=== PATIENT | female | born 1940 | race Caucasian/White ===

== ENCOUNTER 2016-12-05 10:09 | Observation (INO) | payer MEDICARE, BC ==
--- NOTE | 2016-12-05 10:56 | ED ---
General Adult HPI - General Chief complaint: Arrhythmia/Palpitations Stated complaint: HTN Time Seen by Provider: 12/05/16 10:54 Source: patient, RN notes reviewed, old records reviewed Mode of arrival: wheelchair Limitations: no limitations - History of Present Illness Initial comments: This is a 76-year-old female ER for evaluation of chest pain. Chest pain and palpitations, fast heart rate, symptoms occurred after waking. Patient had similar symptoms about a week ago. Patient is known to have some sort of tachycardia which she is unsure of. Patient does have history of CVA and cardiac risk factors. Patient states symptoms are worse with walking, she does get short of breath with activity better with rest. Patient states she is currently having similar symptoms and does feel anxious about this. She feels that she did not pass out and is scared about that - Related Data Home Medications Medication Instructions Recorded Confirmed Benazepril HCl [Lotensin] 40 mg PO DAILY 12/05/16 12/05/16 Cholecalciferol [Vitamin D3] 2,000 unit PO DAILY 12/05/16 12/05/16 Clopidogrel Bisulfate [Plavix] 75 mg PO DAILY 12/05/16 12/05/16 Metoprolol Tartrate [Lopressor] 50 mg PO DAILY 12/05/16 12/05/16 Nystatin 100,000 Unit/ml Susp 5 ml PO TID 12/05/16 12/05/16 [Mycostatin Oral Susp] Omeprazole [PriLOSEC] 40 mg PO DAILY 12/05/16 12/05/16 Pravastatin Sodium [Pravachol] 40 mg PO HS 12/05/16 12/05/16 amLODIPine BESYLATE [Norvasc] 5 mg PO DAILY 12/05/16 12/05/16 Review of Systems ROS Statement: Those systems with pertinent positive or pertinent negative responses have been documented in the HPI. ROS Other: All systems not noted in ROS Statement are negative. Past Medical History Past Medical History: Hypertension History of Any Multi-Drug Resistant Organisms: None Reported Additional Past Surgical History / Comment(s): cataracts Past Psychological History: No Psychological Hx Reported Smoking Status: Never smoker Past Alcohol Use History: None Reported Past Drug Use History: None Reported General Exam Limitations: no limitations General appearance: alert, in no apparent distress, anxious Head exam: Present: atraumatic, normocephalic, normal inspection Eye exam: Present: normal appearance, PERRL, EOMI. Absent: scleral icterus, conjunctival injection, periorbital swelling ENT exam: Present: normal exam, mucous membranes moist Neck exam: Present: normal inspection. Absent: tenderness, meningismus, lymphadenopathy Respiratory exam: Present: normal lung sounds bilaterally. Absent: respiratory distress, wheezes, rales, rhonchi, stridor Cardiovascular Exam: Present: regular rate, normal rhythm, normal heart sounds. Absent: systolic murmur, diastolic murmur, rubs, gallop, clicks GI/Abdominal exam: Present: soft, normal bowel sounds. Absent: distended, tenderness, guarding, rebound, rigid Extremities exam: Present: normal inspection, full ROM, normal capillary refill. Absent: tenderness, pedal edema, joint swelling, calf tenderness Back exam: Present: normal inspection Neurological exam: Present: alert, oriented X3, CN II-XII intact Psychiatric exam: Present: normal affect, normal mood Skin exam: Present: warm, dry, intact, normal color. Absent: rash Course Vital Signs 12/05/16 10:46 Temperature 98.2 F Pulse Rate 64 Respiratory 18 Rate Blood Pressure 143/72 O2 Sat by Pulse 99 Oximetry - Reevaluation(s) Reevaluation #1: 12/05/16 12:20 Patient still very anxious, palpitations have resolved, she did take metoprolol after symptoms started EKG Findings - EKG Comments: EKG Findings:: EKG shows sinus bradycardia rate 59,OR 236, QRS 80, QTC 421 Medical Decision Making - Medical Decision Making 76-year-old year for evaluation of elevated heart rate palpitations anxiety and chest pain. Exertional dyspnea. Patient has no ST elevation on EKG troponin is negative will be admitted for cardiac observation, social troponin testing - Lab Data Result diagrams: 12/05/16 11:14 12/05/16 11:14 Lab Results 12/05/16 12/05/16 12/05/16 Range/Units 11:14 11:14 11:14 WBC 6.5 (3.8-10.6) k/uL RBC 5.05 (3.80-5.40) m/uL Hgb 15.1 (11.4-16.0) gm/dL Hct 44.6 (34.0-46.0) % MCV 88.3 (80.0-100.0) fL MCH 30.0 (25.0-35.0) pg MCHC 33.9 (31.0-37.0) g/dL RDW 13.3 (11.5-15.5) % Plt Count 248 (150-450) k/uL Neutrophils % 68 % Lymphocytes % 23 % Monocytes % 5 % Eosinophils % 2 % Basophils % 2 % Neutrophils # 4.4 (1.3-7.7) k/uL Lymphocytes # 1.5 (1.0-4.8) k/uL Monocytes # 0.3 (0-1.0) k/uL Eosinophils # 0.1 (0-0.7) k/uL Basophils # 0.1 (0-0.2) k/uL PT (9.0-12.0) sec INR (<1.1) APTT (22.0-30.0) sec Sodium 141 (137-145) mmol/L Potassium 4.4 (3.5-5.1) mmol/L Chloride 106 (98-107) mmol/L Carbon Dioxide 22 (22-30) mmol/L Anion Gap 13 mmol/L BUN 12 (7-17) mg/dL Creatinine 0.75 (0.52-1.04) mg/dL Est GFR (MDRD) Af Amer >60 (>60 ml/min/1.73 sqM) Est GFR (MDRD) Non-Af >60 (>60 ml/min/1.73 sqM) Glucose 112 H (74-99) mg/dL Calcium 10.2 (8.4-10.2) mg/dL Phosphorus 1.7 L (2.5-4.5) mg/dL Magnesium 2.2 (1.6-2.3) mg/dL Total Bilirubin 0.9 (0.2-1.3) mg/dL AST 24 (14-36) U/L ALT 28 (9-52) U/L Alkaline Phosphatase 90 (38-126) U/L Total Creatine Kinase 58 (30-135) U/L CK-MB (CK-2) 0.5 (0.0-2.4) ng/mL CK-MB (CK-2) Rel Index 0.9 Troponin I <0.012 (0.000-0.034) ng/mL Total Protein 7.7 (6.3-8.2) g/dL Albumin 4.3 (3.5-5.0) g/dL Urine Color Urine Appearance (Clear) Urine pH (5.0-8.0) Ur Specific Thornton (1.001-1.035) Urine Protein (Negative) Urine Glucose (UA) (Negative) Urine Ketones (Negative) Urine Blood (Negative) Urine Nitrate (Negative) Urine Bilirubin (Negative) Urine Urobilinogen (<2.0) mg/dL Ur Leukocyte Esterase (Negative) 12/05/16 12/05/16 Range/Units 11:14 12:02 WBC (3.8-10.6) k/uL RBC (3.80-5.40) m/uL Hgb (11.4-16.0) gm/dL Hct (34.0-46.0) % MCV (80.0-100.0) fL MCH (25.0-35.0) pg MCHC (31.0-37.0) g/dL RDW (11.5-15.5) % Plt Count (150-450) k/uL Neutrophils % % Lymphocytes % % Monocytes % % Eosinophils % % Basophils % % Neutrophils # (1.3-7.7) k/uL Lymphocytes # (1.0-4.8) k/uL Monocytes # (0-1.0) k/uL Eosinophils # (0-0.7) k/uL Basophils # (0-0.2) k/uL PT 11.8 (9.0-12.0) sec INR 1.2 (<1.1) APTT 23.9 (22.0-30.0) sec Sodium (137-145) mmol/L Potassium (3.5-5.1) mmol/L Chloride (98-107) mmol/L Carbon Dioxide (22-30) mmol/L Anion Gap mmol/L BUN (7-17) mg/dL Creatinine (0.52-1.04) mg/dL Est GFR (MDRD) Af Amer (>60 ml/min/1.73 sqM) Est GFR (MDRD) Non-Af (>60 ml/min/1.73 sqM) Glucose (74-99) mg/dL Calcium (8.4-10.2) mg/dL Phosphorus (2.5-4.5) mg/dL Magnesium (1.6-2.3) mg/dL Total Bilirubin (0.2-1.3) mg/dL AST (14-36) U/L ALT (9-52) U/L Alkaline Phosphatase (38-126) U/L Total Creatine Kinase (30-135) U/L CK-MB (CK-2) (0.0-2.4) ng/mL CK-MB (CK-2) Rel Index Troponin I (0.000-0.034) ng/mL Total Protein (6.3-8.2) g/dL Albumin (3.5-5.0) g/dL Urine Color Colorless Urine Appearance Clear (Clear) Urine pH 8.0 (5.0-8.0) Ur Specific Thornton 1.003 (1.001-1.035) Urine Protein Negative (Negative) Urine Glucose (UA) Negative (Negative) Urine Ketones 1+ H (Negative) Urine Blood Negative (Negative) Urine Nitrate Negative (Negative) Urine Bilirubin Negative (Negative) Urine Urobilinogen <2.0 (<2.0) mg/dL Ur Leukocyte Esterase Negative (Negative) - Radiology Data Radiology results: report reviewed (Chest x-ray two-view is negative for acute disease), image reviewed Critical Care Time Critical Care Time: Yes Total Critical Care Time: 31 Disposition Clinical Impression: Tachycardia, Chest pain, Heart palpitations, Anxiety Disposition: ADMITTED IP TO THIS [facility] Condition: Fair Referrals: April Peres MD [Primary Care Provider] - 1-2 days
[2016-12-05 11:29] LABS: Basophils # (A) 0.1 k/uL (0-0.2); Basophils % (A) 2 %; CH 30.7; CHCM 34.9; Eosinophils # (A) 0.1 k/uL (0-0.7); Eosinophils % (A) 2 %; HCT 44.6 % (34.0-46.0); HDW 2.46; HGB 15.1 gm/dL (11.4-16.0); Luc # (Auto) 0.08; Luc % (Auto) 1; Lymphocytes # (A) 1.5 k/uL (1.0-4.8); Lymphocytes % (A) 23 %; MCHC 33.9 g/dL (31.0-37.0); MCV 88.3 fL (80.0-100.0); Mean Platelet Volume 7.8; Monocytes # (A) 0.3 k/uL (0-1.0); Monocytes % (A) 5 %; Neutrophils # (A) 4.4 k/uL (1.3-7.7); Neutrophils % (A) 68 %; RBC 5.05 m/uL (3.80-5.40); RDW 13.3 % (11.5-15.5); WBC 6.5 k/uL (3.8-10.6); WBC (Perox) 6.31
--- NOTE | 2016-12-05 11:30 | XR ---
EXAMINATION TYPE: XR chest 2V DATE OF EXAM: 12/05/2016 11:24 AM COMPARISON: 10/07/2013 INDICATION: Weakness chest discomfort TECHNIQUE: Frontal and lateral views of the chest are obtained. FINDINGS: The heart size is normal. The pulmonary vasculature is normal. The lungs are clear. IMPRESSION: 1. No acute pulmonary process.
[2016-12-05 11:37] LABS: ALT 28 U/L (9-52); AST 24 U/L (14-36); Alkaline Phosphatase 90 U/L (38-126); Anion Gap 13 mmol/L; Blood Urea Nitrogen 12 mg/dL (7-17); Calcium 10.2 mg/dL (8.4-10.2); Carbon Dioxide 22 mmol/L (22-30); Chloride 106 mmol/L (98-107); Glucose 112 mg/dL (74-99); Magnesium 2.2 mg/dL (1.6-2.3); Non-African American GFR(MDRD) >60 (>60 ml/min/1.73 sqM); Phosphorous 1.7 mg/dL (2.5-4.5); Potassium 4.4 mmol/L (3.5-5.1); Sodium 141 mmol/L (137-145); Total Bilirubin 0.9 mg/dL (0.2-1.3); Total Protein 7.7 g/dL (6.3-8.2)
[2016-12-05 11:49] LABS: INR 1.2 (<1.1); Partial Thromboplastin Time 23.9 sec (22.0-30.0); Prothrombin Time 11.8 sec (9.0-12.0)
[2016-12-05 11:51] LABS: Creatine Kinase 58 U/L (30-135)
[2016-12-05 12:03] LABS: Creatine Kinase MB 0.5 ng/mL (0.0-2.4); Troponin I <0.012 ng/mL (0.000-0.034)
[2016-12-05 12:17] LABS: Appearance,Urine Clear (Clear); Bilirubin,Urine Negative (Negative); Glucose,Urine (UA) Negative (Negative); Ketones,Urine 1+ (Negative); Leukocyte Esterase,Urine Negative (Negative); Nitrite,Urine Negative (Negative); Protein,Urine Negative (Negative); Specific Gravity,Urine 1.003 (1.001-1.035); UA Billing (MACRO vs. MICRO) CHEM; Urobilinogen,Urine <2.0 mg/dL (<2.0)
[2016-12-05] MEDS ORDERED: HEPARIN SODIUM,PORCINE 5,000 UNIT/ML 1 ML VIAL IV PRN (12:17)
[2016-12-05] MEDS ORDERED: NITROGLYCERIN SL TABS 0.4 MG TAB SUBLINGUAL PRN (12:17)
[2016-12-05] MEDS ORDERED: ASPIRIN 81 MG CHEW PO STA (12:17)
[2016-12-05] MEDS ORDERED: HEPARIN SODIUM,PORCINE 5,000 UNIT/ML 1 ML VIAL IV ONE (12:17)
[2016-12-05] MEDS ORDERED: DIAZEPAM 5 MG/ML 2 ML SYRINGE IVP PRN (12:17)
[2016-12-05] MEDS ORDERED: DIAZEPAM 5 MG/ML 2 ML SYRINGE IVP STA (12:17)
[2016-12-05] MEDS ORDERED: HEPARIN SODIUM,PORCINE/D5W PMX 25,000 UNIT in DEXTROSE/WATER 1 500ML.BAG IV SCH (12:30)
[2016-12-05] MEDS: SODIUM CHLORIDE 0.9% 1,000 ML IV SCH (15:03)
[2016-12-05 17:58] LABS: Creatine Kinase 54 U/L (30-135)
[2016-12-05 18:10] LABS: Creatine Kinase MB 0.5 ng/mL (0.0-2.4); Troponin I <0.012 ng/mL (0.000-0.034)
[2016-12-05 20:30] LABS: Creatine Kinase 55 U/L (30-135)
[2016-12-05 20:43] LABS: Creatine Kinase MB 0.5 ng/mL (0.0-2.4); Troponin I <0.012 ng/mL (0.000-0.034)
[2016-12-06] MEDS: PRAVASTATIN SODIUM 40 MG TAB PO SCH ×2 (00:39→21:20)
[2016-12-06] MEDS: SODIUM CHLORIDE 0.9% 1,000 ML IV SCH (00:45)
[2016-12-06 07:37] LABS: Mean Platelet Volume 7.7
[2016-12-06 08:06] LABS: Cholesterol 142 mg/dL (<200); HDL Cholesterol 65 mg/dL (40-60); Triglycerides 80 mg/dL (<150)
--- NOTE | 2016-12-06 09:51 | ECHOF ---
Referral Reason:palpitations MEASUREMENTS -------- HEIGHT: 157.5 cm WEIGHT: 78.0 kg BP: RVIDd: 2.8 cm (< 3.3) IVSd: 1.2 cm (0.6 - 1.1) LVIDd: 3.4 cm (3.9 - 5.3) LVPWd: 1.5 cm (0.6 - 1.1) IVSs: 1.3 cm LVIDs: 2.9 cm LVPWs: 1.3 cm LAESV Index (A-L): 35.89 ml/m Ao Diam: 3.0 cm (2.0 - 3.7) AV Cusp: 1.8 cm (1.5 - 2.6) LA Diam: 4.0 cm (2.7 - 3.8) MV EXCURSION: 13.189 mm (> 18.000) MV EF SLOPE: 44 mm/s (70 - 150) EPSS: 0.2 cm MV E Ej: 0.71 m/s MV DecT: 139 ms MV A Ej: 0.22 m/s MV E/A Ratio: 3.29 RAP: 5.00 mmHg RVSP: 11.44 mmHg FINDINGS -------- Undetermined rhythm. This was a technically adequate study. There is mild concentric left ventricular hypertrophy. Overall left ventricular systolic function is low-normal with, an EF between 50 - 55 %. The right ventricle is normal in size. LA is midly dilated 29-33ml/m2. There is mild aortic valve sclerosis. There is no evidence of aortic regurgitation. Moderate mitral regurgitation is present. Cannot exclude mitral valve prolapse. Right ventricular systolic pressure is normal at < 35 mmHg. There is no evidence of pulmonary hypertension. The right ventricular systolic pressure, as measured by Doppler, is 11.44mmHg. There is no pulmonic regurgitation present. The aortic root size is normal. There is no pericardial effusion. CONCLUSIONS -------- 1. There is mild concentric left ventricular hypertrophy. 2. Overall left ventricular systolic function is low-normal with, an EF between 50 - 55 %. 3. LA is midly dilated 29-33ml/m2. 4. There is mild aortic valve sclerosis. 5. Moderate mitral regurgitation is present. 6. Cannot exclude mitral valve prolapse. 7. Right ventricular systolic pressure is normal at < 35 mmHg. 8. There is no evidence of pulmonary hypertension. 9. The right ventricular systolic pressure, as measured by Doppler, is 11.44mmHg. LARD RENDERER: Janet Pritchard RDCS
[2016-12-06] MEDS: CLOPIDOGREL 75 MG TAB PO SCH (12:11)
[2016-12-06] MEDS: METOPROLOL TARTRATE 50 MG TAB PO SCH (12:12)
[2016-12-06] MEDS: CHOLECALCIFEROL 1,000 UNIT TAB PO SCH (12:12)
[2016-12-06] MEDS: PANTOPRAZOLE 40 MG TABLET PO SCH (12:12)
[2016-12-06] MEDS: LISINOPRIL 20 MG TAB PO SCH (12:12)
[2016-12-06] MEDS: amLODIPine 5 MG TAB PO SCH (12:12)
--- NOTE | 2016-12-06 16:01 | HP ---
DATE OF ADMISSION: CHIEF COMPLAINT: Heart beating fast and feeling of passing out. HISTORY OF ILLNESS: Ms. Brown is a 76-year-old female with known history of hypertension, history of CVA, history of palpitations, who follows with the cardiology clinic. She came to the hospital with complaints of heart beating fast and a feeling of passing out since yesterday a.m. Apparently patient had similar symptoms of heart beating fast about a week back. Patient does follow with Dr. Charles Hall for cardiac workup. Patient had a stress test done about 2 years ago and had cardiac catheterization several years ago. Otherwise, patient denied any fever or chills. No associated nausea or vomiting. Patient did have dizziness and lightheadedness when she came to the hospital. No complaints of chest pain or shortness of breath. Patient has been having dizziness when she gets up and walks to the bathroom. Patient does take Plavix at home. No recent illnesses. No sick contacts at home. Patient apparently has been having diarrhea on and off recently. Currently no complaints of diarrhea. No abdominal pain. REVIEW OF SYSTEMS: CONSTITUTIONAL: No fever. No chills. No weakness or malaise. RESPIRATORY: No cough or sputum production. CARDIOVASCULAR: No chest pain. No shortness of breath. No leg swelling. Patient did have palpitations. ABDOMEN: No nausea, vomiting, abdominal pain. No diarrhea. GENITOURINARY: No dysuria. ENDOCRINE: Negative. PSYCHIATRY: Negative. SKIN: Negative. MUSCULOSKELETAL: Negative. All other 14-point review of systems negative except as above. Past medical history includes: 1. Hypertension. 2. History of CVA. 3. History of palpitations. PAST SURGICAL HISTORY: 1. Cholecystectomy. 2. Total abdominal hysterectomy. 3. Tonsillectomy. 4. Cataract surgery. SOCIAL HISTORY: Patient never a smoker. Denied any alcohol. Denied any drugs or IVDU. FAMILY HISTORY: Denied any history of hypertension, diabetes mellitus or premature heart disease in the family. Home medications include: 1. Benazepril. 2. Metoprolol. 3. Clopidogrel. 4. Vitamin D3. 5. Nystatin oral suspension. 6. Omeprazole. 7. Pravastatin. 8. Amlodipine. PHYSICAL EXAMINATION: [age]-old female lying in bed comfortably. Awake, alert, oriented x3. Appears in no apparent distress. VITALS: Blood pressure is 172/70. Pulse is 56. Respiratory rate 16. Temperature afebrile. Pulse ox 98% on room air. HEENT: Atraumatic, normocephalic. Neck is supple. No JVD. CVS EXAM: S1, S2 heard. No murmurs. No gallop. LUNGS: Bilateral air entry present. No wheezing. No crackles. Non-labored breathing. ABDOMEN: Soft, nontender. Bowel sounds present. YOGA TEACHER: Awake, alert and oriented x3. No focal neurological deficit. Cranial nerves grossly intact. EXTREMITIES: No edema. Pulses palpable bilaterally. No clubbing or cyanosis. PSYCHIATRIC: Cooperative. LABORATORY DATA: WBC 6.5, hemoglobin 15.1, platelets 248. INR 1.2. Sodium 141, potassium 4.4, chloride 106. Bicarb is 22. BUN 12, creatinine 0.75. Blood sugar is 112. Phosphorus is 1.7. Troponin x3 negative. Liver enzymes are negative. Albumin 4.3. UA negative. EKG shows sinus bradycardia with first-degree AV block. Chest x-ray negative. IMPRESSION: 1. Near-syncope and feeling of passing out, likely cardiogenic. 2. History of palpitations, on followup with Cardiology as an outpatient. 3. Hypertension. 4. History of cerebrovascular accident. No residual weakness. Currently on Plavix. 5. Hypophosphatemia. 6. Anxiety. 7. Tachycardia. 8. Sinus bradycardia with first-degree AV block on EKG. DISCUSSION AND PLAN: Re[age]mvv[age]dem[age]-old female admitted to the hospital with feeling of passing out and heart racing fast. Will check TSH and will check orthostatic vitals. Patient currently on IV fluid challenges per hour. Continue with the home medications. ( ) Plavix and ( ) started on heparin IV. Serial troponins are negative. Cardiology has been consulted for further evaluation. Will continue to follow. Further recommendations based on the clinical course.
[2016-12-06] MEDS: ASPIRIN 325 MG TAB PO SCH (17:25)
--- NOTE | 2016-12-06 21:07 | CONS ---
DATE OF CONSULTATION: Mrs. Brown is a 76-year-old female who presented complaining of a presyncopal spell followed by pounding in her chest. She had a similar spell about a week back. She has had several such spells in the past and she has had a detailed cardiac workup, including an event monitor, but no clear-cut could be arrived at. All the tests were within normal limits. At this time she denies any chest discomfort. No undue shortness of breath, dizziness or lightheadedness, and she has not had any such episode while she is on telemetry. PAST MEDICAL HISTORY: 1. Hypertension. 2. History of TIA in the past. 3. History of PFO with interatrial shunting. That was diagnosed around 2005, and at that time she had a TIA. She follows with Dr. Hill for this. 4. Normal coronary arteries. 5. Normal LV function. REVIEW OF SYSTEMS: No fever, chills, rigors. No cough or expectoration. No nausea, vomiting or diarrhea. No hematuria or dysuria. No strokes or seizures. No skin lesions. No musculoskeletal complaints. PAST SURGICAL HISTORY: 1. Cholecystectomy. 2. Total abdominal hysterectomy. 3. Tonsillectomy. 4. Cataract surgery. SOCIAL HISTORY: No history of smoking or alcohol use. FAMILY HISTORY: Noncontributory. Medications at home include: 1. Benazepril. 2. Metoprolol. 3. Clopidogrel. 4. Vitamin D3. 5. Pravachol. 6. Amlodipine. On examination, she is lying comfortably in bed. Her vitals are stable. Her blood pressure 120/71 mmHg and 154/77 mmHg. Normal respirations. Afebrile, 98.3 degrees Fahrenheit. Heart sounds S1, S2 are normal. Normal breath sounds. No rhonchi. No crackles. Abdomen is soft, nontender. Extremities are warm. No edema. Twelve-lead ECG shows sinus rhythm, 59 beats per minute, mildly prolonged [place] interval at 236 ms, normal ST segments. Telemetry: No arrhythmia is noted other than heart rates in the 50s. Two-D echo: Mild LVH with preserved LV systolic function, ejection fraction of 50% to 55%; mildly dilated left atrium; moderate mitral regurgitation; possible mitral valve prolapse. No pulmonary hypertension. RVSP is normal. IMPRESSION: 1. Recurrent episodes of presyncope followed by pounding in the chest without a clear-cut diagnosis. 2. History of transient ischemic attack almost 10 years back. 3. History of patent foramen ovale with interatrial shunting. 4. History of moderate mitral regurgitation. 5. Hypertension with mild left ventricular hypertrophy; ejection fraction in the low normal range of 50% to 55%. SUGGEST: Tilt table test tomorrow. I would recommend at least implantation of a Reveal monitor. I showed the Reveal loop monitor to the patient. She is agreeable with that plan. I think the Reveal monitor is important on several counts: 1) She has had a history of TIA, and the presumption has been that it was associated with the PFO. 2) She has a history of presyncope. 3) The presyncope is followed by a pounding sensation in the chest. 4) No diagnosis has been arrived at, despite fairly detailed testing, including event monitoring. Angiogram in the past has been normal. We will proceed with tilt table testing and Reveal monitor implantation tomorrow.
[2016-12-07] MEDS: SODIUM CHLORIDE 0.9% 1,000 ML IV SCH ×2 (09:02→12:59)
[2016-12-07] MEDS ORDERED: ceFAZolin 2 GM in SODIUM CHLORIDE 0.9% 100 ML IVPB ONE (10:05)
[2016-12-07] MEDS ORDERED: SODIUM CHLORIDE 0.9% 1,000 ML IV SCH (10:15)
[2016-12-07] MEDS ORDERED: LIDOCAINE 2% INJ 20 MG/ML SQ ONE ×2 (11:00)
--- NOTE | 2016-12-07 11:19 | P.PCN ---
Preoperative Diagnosis: Twelve-lead ECG shows sinus rhythm mildly prolonged MN interval narrow QRS Loop monitor implant Primary physicians: April Peres Filling Hand: Dr. Barclay Indication: Presyncope and palpitations , TIA Patient was brought to the EP lab in a fasting state. Written informed consent was obtained prior to the procedure. The left pectoral area was prepped and draped per protocol. Intravenous antibiotic was administered preoperatively. A subcutaneous Loop monitor was implanted successfully and the wound was closed per protocol. The device was programmed to detect significant rupert- arrhythmic and tachy-arrhythmic events, per protocol. Device and programming details: Programming for A. fib and bradycardia
[2016-12-07 11:47] VITALS: BP 165/71; PULSE 73; RESP 16; TEMP 97.7
--- NOTE | 2016-12-07 11:51 | CE ---
DATE OF SERVICE: TILT TABLE TEST: Ms. Brown underwent a tilt table test. A 12 lead ECG shows sinus rhythm with normal QRS and a mildly prolonged CA interval. Baseline blood pressure 123/61 millimeters Hg. Baseline heart rate 75 beats a minute. She was tilted upright at an angle of 70 degrees per protocol. There was a slow but a gradual reduction in her blood pressure. The lowest blood pressure recorded was 75 mmHg. There was a mild increase in heart rate 103 beats a minute. She remained completely asymptomatic and she was laid supine at the end of the procedure. Her blood pressure increased to 91/61 millimeters of Hg. IMPRESSION: 1. 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 2. No evidence for neurocardiogenic syncope.
--- NOTE | 2016-12-07 11:53 | LTR ---
December 07, 2016 RE: Kevin Jasmin Rosa Maria Dear Dr. Peres: I had the pleasure of seeing Jasmin Brown in electrophysiology consultation. Jasmin has a history of: 1. TIAs in the past with PFO and it was presumed that these episodes are due to her PFO. 2. Recurrent episodes of presyncope followed by a pounding and palpitations. Her work-up as an outpatient has been completely normal. She follows with Dr. hCarles Hall. On telemetry, no arrhythmias were noted. She underwent a tilt table test, which showed mild dysautonomic response which she was completely asymptomatic during the tilt table test. Subsequently, a Loop monitor was implanted to look for any episodes of sudden bradycardia and atrial fibrillation, which could explain her symptoms, including her TIAs. If you have any questions, please do not hesitate to give me a call. Sincerely, JOSE GROSS MD
[2016-12-07] MEDS: PANTOPRAZOLE 40 MG TABLET PO SCH (12:59)
[2016-12-07] MEDS: CHOLECALCIFEROL 1,000 UNIT TAB PO SCH (13:00)
[2016-12-07] MEDS: LISINOPRIL 20 MG TAB PO SCH (13:00)
[2016-12-07] MEDS: amLODIPine 5 MG TAB PO SCH (13:00)
[2016-12-07] MEDS: ASPIRIN 325 MG TAB PO SCH (13:00)
[2016-12-07] MEDS: METOPROLOL TARTRATE 50 MG TAB PO SCH (13:00)
[2016-12-07] MEDS: CLOPIDOGREL 75 MG TAB PO SCH (13:00)
--- NOTE | 2016-12-07 19:57 | P.DS ---
Providers Date of admission: 12/05/16 12:17 Expected date of discharge: 12/07/16 Attending physician: Flavia Campbell Primary care physician: April Peres MD Hospital Course: This is 76-year-old female came to the hospital with a presyncopal episode patient did notice some pounding in her chest patient had has a similar episodes in the past patient apparently has had a detailed workup including event monitor and ischemic workup that was negative in the past. Patient was evaluated by Dr. ivy, recommended the patient undergo a placement of implantable monitor. Patient successfully underwent a loop recorder placement. At the time of my examination patient denies having any chest pain, palpitations, dizziness, nausea, vomiting or diarrhea. Physical exam Gen. appearance oriented 3 in no distress Neck is supple no JVD Lungs good air entry clear to auscultation no rhonchi or wheezing Heart S1-S2 heard regular rate and rhythm no murmurs appreciated Abdomen is soft nontender no organomegaly bowel sounds are intact Neurologically cranial nerves II-12 grossly intact no focal motor or sensory deficits noted Skin no abnormalities appreciated Discharge diagnoses #1. Presyncope rule out cardiac arrhythmias as underlying etiology other workup has been negative #2 history of hypertension per graph #3 history of TIA #4 history of PFO #5 vitamin D insufficiency Plan patient will be discharged home is to follow-up with electrophysiology in regards to evaluation of abnormal rhythms as recommended. Patient's blood pressure was stable orthostatics were negative Patient Condition at Discharge: Fair Plan - Discharge Summary Discharge Medication List Benazepril HCl [Lotensin] 40 mg PO DAILY 12/05/16 [History] Cholecalciferol [Vitamin D3] 1,000 unit PO DAILY 12/05/16 [History] Clopidogrel Bisulfate [Plavix] 75 mg PO DAILY 12/05/16 [History] Metoprolol Tartrate [Lopressor] 50 mg PO DAILY 12/05/16 [History] Omeprazole [PriLOSEC] 40 mg PO DAILY 12/05/16 [History] Pravastatin Sodium [Pravachol] 40 mg PO HS 12/05/16 [History] amLODIPine BESYLATE [Norvasc] 5 mg PO DAILY 12/05/16 [History] Follow up Appointment(s)/Referral(s): April Peres MD [Primary Care Provider] - 1-2 days Connor Hall MD [STAFF PHYSICIAN] - 1 Week (Monday, December 14, 3:15) Patient Instructions/Handouts: Chest Pain (GEN), Tilt Table Test (GEN), Cardiac Loop Recorder Insertion (DC) Discharge Disposition: HOME SELF-CARE
== END 2016-12-07 15:45 | disposition home or self-care (01) ==
LOC: EC 10:09 → 3OBS 12:17
PROVIDERS: ADMIT Hospitalist; ATTEND Hospitalist
DX: R55 Syncope and collapse (principal); I10 Essential (primary) hypertension; R00.2 Palpitations; E83.39 Other disorders of phosphorus metabolism; F41.9 Anxiety disorder, unspecified; R00.0 Tachycardia, unspecified; R00.1 Bradycardia, unspecified; R19.7 Diarrhea, unspecified; Z79.02 Long term (current) use of antithrombotics/antiplatelets; Z79.899 Other long term (current) drug therapy; Z86.73 Personal history of transient ischemic attack (TIA), and cerebral infarction without residual deficits
CPT/HCPCS: 36415; 94760; 93005; 93306; 33282; 93660; 80061; 80053; 84443; 82550; 82553; 83735; 84100; 84484; 85025; 85049 ×2; 85610; 85730 ×2; 81003; 71020; 99291; 96365; 96366 ×6; 96375; 96376; G0378 ×3; C1764; J2001; J1644 ×2; J3360; J0690

== ENCOUNTER → 2017-04-20 | Outpatient (CLI) | payer MEDICARE, BC ==
--- NOTE | 2017-04-20 09:48 | MM ---
Reason for exam: clinical finding. Last mammogram was performed 9 months ago. History: Patient is postmenopausal and history of other cancer. Took hormonal contraceptives for 10 years. Took estrogen for 10 years. Indicated problem(s): pain in the left breast. Physical Findings: Nurse did not find any significant physical abnormalities on exam. MG 3D Diag Mammo W/Cad LT CC and MLO view(s) were taken of the left breast. Prior study comparison: July 08, 2016, bilateral MG 3d screening mammo w/cad. June 09, 2015, bilateral MG screening mammo w CAD. The breast tissue is heterogeneously dense. This may lower the sensitivity of mammography. Finding: There are typically benign round, linear, diffuse and grouped calcifications in the left breast. Left loop recorder posterior position. These results were verbally communicated with the patient and result sheet given to the patient on 04/20/17. ASSESSMENT: Benign, BI-RAD 2 RECOMMENDATION: Return to routine screening mammogram schedule for both breasts. Manage patient on a clinical basis. Pain.
--- NOTE | 2017-04-20 09:51 | USB ---
Reason for exam: clinical finding. History: Patient is postmenopausal and history of other cancer. Took hormonal contraceptives for 10 years. Took estrogen for 10 years. Indicated problem(s): pain in the left breast. US Breast LT Left breast ultrasound includes all four quadrants, the retroareolar region and axilla. Finding demonstrate a 0.7 x 0.4 x 0.2 too small to characterize lesion at 7 o'clock, and a 1.5 x 0.8 x 2.5 focal tissue at 1 o'clock. These results were verbally communicated with the patient and result sheet given to the patient on 04/20/17. ASSESSMENT: Benign, BI-RAD 2 RECOMMENDATION: Return to routine screening mammogram schedule for both breasts. Manage patient on a clinical basis. Pain.
== END | disposition home or self-care (01) ==
LOC: RADMAMWWP 08:11
PROVIDERS: ATTEND Family Medicine
DX: N64.4 Mastodynia (principal)
CPT/HCPCS: 76641; G0206; G0279

== ENCOUNTER 2017-05-01 20:01 | Emergency (ER) | payer MEDICARE, BC ==
[2017-05-01 20:07] VITALS: RESP 18
--- NOTE | 2017-05-01 20:33 | ED ---
General Adult HPI - General Chief complaint: Fall Stated complaint: Fall Time Seen by Provider: 05/01/17 20:05 Source: patient, RN notes reviewed Mode of arrival: EMS Limitations: no limitations - History of Present Illness Initial comments: This is a 76-year-old female who presents to the emergency department complaining of tripping over her shoes and falling and striking the right side of her head. Patient states she did not lose consciousness she was not dazed. Patient denies any headache. Patient denies any lacerations. Patient states she did not hurt her neck and she has no numbness or weakness. Patient is on Plavix for atrial fibrillation. Patient denies any other blood thinners. Patient denies any other injuries. She denies any upper extremity or lower extremity injuries. Patient denies any back pain. Patient denies any chest pain or abdominal pain. - Related Data Home Medications Medication Instructions Recorded Confirmed Cholecalciferol [Vitamin D3] 1,000 unit PO DAILY 12/05/16 05/01/17 Clopidogrel Bisulfate [Plavix] 75 mg PO DAILY 12/05/16 05/01/17 Metoprolol Tartrate [Lopressor] 25 mg PO BID 12/05/16 05/01/17 Omeprazole [PriLOSEC] 40 mg PO DAILY 12/05/16 05/01/17 Pravastatin Sodium [Pravachol] 40 mg PO HS 12/05/16 05/01/17 amLODIPine BESYLATE [Norvasc] 5 mg PO DAILY 12/05/16 05/01/17 Benazepril HCl 20 mg PO DAILY 05/01/17 05/01/17 Allergies Allergy/AdvReac Type Severity Reaction Status Date / Time Milk Containing Products AdvReac Unknown Verified 05/01/17 20:18 [Dairy] Review of Systems ROS Statement: Those systems with pertinent positive or pertinent negative responses have been documented in the HPI. ROS Other: All systems not noted in ROS Statement are negative. Past Medical History Past Medical History: Chest Pain / Angina, CVA/TIA, GERD/Reflux, Hyperlipidemia , Hypertension, Osteoarthritis (OA) Additional Past Medical History / Comment(s): past migraines,tia 2006, palpitations, varicose veins, seasonal allergies/sinus, diverticulosis, hiatal hernia History of Any Multi-Drug Resistant Organisms: None Reported Past Surgical History: Bladder Surgery, Cholecystectomy, Heart Catheterization, Hysterectomy, Tonsillectomy Additional Past Surgical History / Comment(s): cataracts,egd/colonoscopy, Past Anesthesia/Blood Transfusion Reactions: No Reported Reaction Past Psychological History: No Psychological Hx Reported Smoking Status: Never smoker Past Alcohol Use History: None Reported Past Drug Use History: None Reported - Past Family History Father Family Medical History: Coronary Artery Disease (CAD) Additional Family Medical History / Comment(s): heart problems Mother Additional Family Medical History / Comment(s): "blood disorder"too many wbc's, but not leukemia" General Exam - General Exam Comments Initial Comments: GENERAL: Patient is well-developed and well-nourished. Patient is nontoxic and well- hydrated and is in mild distress. ENT: Neck is soft and supple. No significant lymphadenopathy is noted. Oropharynx is clear. Moist mucous membranes. Neck has full range of motion without eliciting any pain. EYES: The sclera were anicteric and conjunctiva were pink and moist. Extraocular movements were intact and pupils were equal round and reactive to light. Eyelids were unremarkable. PULMONARY: Unlabored respirations. Good breath sounds bilaterally. No audible rales rhonchi or wheezing was noted. CARDIOVASCULAR: There is a regular rate and rhythm without any murmurs gallops or rubs. ABDOMEN: Soft and nontender with normal bowel sounds. No palpable organomegaly was noted. There is no palpable pulsatile mass. SKIN: Abrasion to the right temporal area superficial patient also has an abrasion of the above the right thigh and to the lateral aspect of the eyebrow. NEUROLOGIC: Patient is alert and oriented x3. Cranial nerves II through XII are grossly intact. Motor and sensory are also intact. Normal speech, volume and content. Symmetrical smile. MUSCULOSKELETAL: Normal extremities with adequate strength and full range of motion. No lower extremity swelling or edema. No calf tenderness. LYMPHATICS: No significant lymphadenopathy is noted PSYCHIATRIC: Normal psychiatric evaluation. Normal interpersonal interactions appears functionally intact in deals appropriately with others. No signs of depression. No signs of anxiety. Limitations: no limitations Course Vital Signs 05/01/17 05/01/17 20:04 21:13 Temperature 98.7 F Pulse Rate 86 81 Respiratory 18 18 Rate Blood Pressure 196/89 162/69 O2 Sat by Pulse 97 96 Oximetry Medical Decision Making - Medical Decision Making CT of the brain shows no acute normalities. CT of the C-spine shows no acute normalities. Disposition Clinical Impression: Fall, Head injury Disposition: HOME SELF-CARE Instructions: Fall Prevention for Older Adults (ED), Head Injury (ED) Referrals: April Peres MD [Primary Care Provider] - 1-2 days Time of Disposition: 21:33
[2017-05-01] MEDS ORDERED: ALPRAZolam 0.25 MG TAB PO STA (21:09)
[2017-05-01 21:14] VITALS: BP 162/69; PULSE 81
--- NOTE | 2017-05-01 21:23 | CT ---
EXAMINATION TYPE: CT brain dianna soria DATE OF EXAM: 05/01/2017 COMPARISON: NONE HISTORY: Fall today. Right frontal injury. CT DLP: 1432.60 mGycm Automated exposure control for dose reduction was used. TECHNIQUE: CT scan of the head and cervical spine are performed without contrast. FINDINGS: There is right frontal scalp soft tissue swelling. Calvarium is intact. Ventricles and heredia lci appear normal for age. There is no mass effect nor midline shift. There is no sign of intracrania l hemorrhage. The cervical vertebra have normal alignment. There is some narrowing at C6-7 disc space with spurring . Facet joints are intact. The skull base is intact. I see no fracture. IMPRESSION: Right frontal scalp hematoma. No intracranial abnormality. Mild spondylosis in the cervical spine. No fracture.
[2017-05-01 21:36] VITALS: TEMP 97.2
== END 2017-05-01 21:43 | disposition home or self-care (01) ==
LOC: EC 20:01
DX: S00.81XA Abrasion of other part of head, initial encounter (principal); S70.311A Abrasion, right thigh, initial encounter; S00.211A Abrasion of right eyelid and periocular area, initial encounter; I48.91 Unspecified atrial fibrillation; E78.5 Hyperlipidemia, unspecified; I10 Essential (primary) hypertension; K21.9 Gastro-esophageal reflux disease without esophagitis; Z79.02 Long term (current) use of antithrombotics/antiplatelets; Z79.899 Other long term (current) drug therapy; Z91.011 Allergy to milk products; Z86.73 Personal history of transient ischemic attack (TIA), and cerebral infarction without residual deficits; Z86.79 Personal history of other diseases of the circulatory system; W18.09XA Striking against other object with subsequent fall, initial encounter
CPT/HCPCS: 70450; 72125; 99284

== ENCOUNTER → 2017-07-12 | Outpatient (CLI) | payer MEDICARE, BC ==
--- NOTE | 2017-07-13 10:41 | MM ---
Reason for exam: screening (asymptomatic). Last mammogram was performed 3 months ago. History: Patient is postmenopausal and history of other cancer. Took hormonal contraceptives for 10 years. Took estrogen for 10 years. Physical Findings: A clinical breast exam by your physician is recommended on an annual basis and results should be correlated with mammographic findings. MG 3D Screening Mammo W/Cad Bilateral CC and MLO view(s) were taken. Prior study comparison: April 20, 2017, left breast MG 3d diag mammo w/cad LT. July 08, 2016, bilateral MG 3d screening mammo w/cad. There are scattered fibroglandular densities. There is chronic nodularity bilaterally. No significant changes when compared with prior studies. ASSESSMENT: Benign, BI-RAD 2 RECOMMENDATION: Routine screening mammogram of both breasts in 1 year.
== END | disposition home or self-care (01) ==
LOC: RADMAMWWP 14:45
PROVIDERS: ATTEND Obstetrics & Gynecology
DX: Z12.31 Encounter for screening mammogram for malignant neoplasm of breast (principal)
CPT/HCPCS: 77063; G0202

== ENCOUNTER → 2017-12-28 | Outpatient (CLI) | payer MEDICARE, BC ==
[2017-12-28 15:17] LABS: Ionized Calcium 5.6 mg/dL (4.5-5.3)
[2017-12-28 15:22] LABS: Calcium 10.3 mg/dL (8.4-10.2)
[2017-12-28 18:52] LABS: Parathyroid Hormone Intact 101.3 pg/mL (14.0-72.0)
[2017-12-28 19:07] LABS: Vitamin D 25 Hydroxy 23.4 ng/mL (30.0-100.0)
== END | disposition home or self-care (01) ==
LOC: LABWHC1 14:54
PROVIDERS: ATTEND Family Medicine
DX: E83.52 Hypercalcemia (principal)
CPT/HCPCS: 36415; 82306; 82310; 82330; 83970; 99214

== ENCOUNTER → 2018-01-08 | Outpatient (CLI) | payer MEDICARE, BC ==
--- NOTE | 2018-01-08 13:30 | US ---
EXAMINATION TYPE: US thyroid st tissue head/neck DATE OF EXAM: 01/08/2018 COMPARISON: NONE CLINICAL HISTORY: E83.52 Hypercalcemia, E21.3 hyperparathyroidism. GLAND SIZE: Right Lobe: 3.7 x 1.0 x 1.7 cm Overall Parenchyma: heterogenous Left Lobe: 1.4 x 1.0 x 0.8 cm Overall Parenchyma: heterogeneous Isthmus Thickness: 0.3 cm NODULES RIGHT: # of nodules measured on right: 1 largest of multiple small nodules 1. 0.4 X 0.5 x 0.3 cm hypoechoic mixed nodule at the mid pole with well-defined margins; present wi th microcalcification. This nodule is wider than tall and shows no intranodular vascularity. LEFT: # of nodules measured on left: 2 1. 0.9 X 0.6 x 0.3 cm hypoechoic mixed nodule at the mid pole with well-defined margins. This nodu le is wider than tall and shows no intranodular vascularity. 2. 0.9 X 0.5 x 0.6 cm hypoechoic mixed nodule at the lower pole with well-defined margins. This nod ule is taller than wide and shows no intranodular vascularity. ISTHMUS: # of nodules measured in the isthmus: 0 Inferior to right thyroid an oval solid nodule is noted in parathyroid area and size = 0.6 x 0.6 x 0. 4cm. Bilateral neck scanned, no evidence of lymphadenopathy. IMPRESSION: 1. Solid 6 mm nodule inferior to the right thyroid gland suspicious for enlarged parathyroid gland. C orrelation with nuclear medicine parathyroid scan could be performed. 2. Bilateral subcentimeter thyroid nodules in a nonenlarged gland. These are too small for fine-needl e aspiration and surveillance is recommended.
== END | disposition home or self-care (01) ==
LOC: RADUSWWP 10:46
PROVIDERS: ATTEND Family Medicine
DX: E04.2 Nontoxic multinodular goiter (principal); E21.3 Hyperparathyroidism, unspecified; E83.52 Hypercalcemia
CPT/HCPCS: 76536

== ENCOUNTER → 2018-01-23 | Outpatient (CLI) | payer MEDICARE, BC ==
--- NOTE | 2018-01-23 15:32 | NM ---
EXAMINATION TYPE: NM parathyroid w/spect DATE OF EXAM: 01/23/2018 COMPARISON: NONE HISTORY: Hyperparathyroidism TECHNIQUE: Following administration of 26.2 mCi Tc99m Sestamibi. Anterior projection images of the neck and ches t were obtained 10 minutes and 3 hours post injection. SPECT images of the neck and chest were obtai veena and reconstructed in three axes. FINDINGS: Thyroid tracer washout: Delayed images demonstrate near-complete tracer washout from the thyroid. Parathyroid uptake: None. The delayed images do not demonstrate any focal abnormal persistent uptake in the region of the parathyroid glands to suggest parathyroid adenoma. Normal uptake: There is physiological tracer uptake in the myocardium, liver, salivary glands, and th yroid gland. IMPRESSION: Normal parathyroid imaging study. No evidence for mediastinal uptake to suggest mediastinal parathyro id adenoma
== END | disposition home or self-care (01) ==
LOC: RADNMMAIN 07:57
PROVIDERS: ATTEND Family Medicine
DX: E21.3 Hyperparathyroidism, unspecified (principal); D35.1 Benign neoplasm of parathyroid gland
CPT/HCPCS: 78071; A9500

== ENCOUNTER → 2018-02-28 | Outpatient (CLI) | payer MEDICARE, BC ==
[2018-02-28 13:34] LABS: Albumin 3.8 g/dL (3.5-5.0); Calcium 10.6 mg/dL (8.4-10.2); Potassium 4.2 mmol/L (3.5-5.1); Total Bilirubin 0.5 mg/dL (0.2-1.3); Total Protein 6.9 g/dL (6.3-8.2)
[2018-02-28 13:49] LABS: T4, Free (Free Thyroxine) 1.09 ng/dL (0.78-2.19)
[2018-02-28 15:11] LABS: Calcium 24 Hour,Urine 82.5 mg/24 hr
--- NOTE | 2018-02-28 17:44 | BD ---
EXAMINATION TYPE: MG DEXA axial skeleton. DATE OF EXAM: 02/28/2018 COMPARISON: 08/15/2016 CLINICAL HISTORY: Height: 62 IN Weight: 166 LBS FRAX RISK QUESTIONS: Alcohol (3 or more units per day): NO Family History (Parent hip fracture): NO Glucocorticoids (More than 3mos): NO (Ex: prednisone, prednisolone, methylprednisolone, dexamethasone, and hydrocortisone). History of Fracture in Adulthood: NO Secondary Osteoporosis: 1. Type 1 Diabetes: NO 2. Hyperthyroidism: NO 3. Menopause before 45: NO AGE 45 4. Malnutrition: NO 5. Chronic liver disease: NO Rheumatoid Arthritis: NO Current Tobacco Use: NO RISK FACTORS HISTORY OF: Active: YES Diet low in dairy products/other sources of calcium: YES Postmenopausal woman: AGE 45 Take estrogen and/or progesterone medications: NOT NOW How long: AGE 45 - 57 MEDICATIONS: Additional Medications: VIT D, BLOOD THINNER, HIGH BLOOD PRESSURE MEDS, METOPROLOL, PREVISTATIN EXAM MEASUREMENTS: Bone mineral densitometry was performed using the [employer] System. Bone mineral density as measured about the Lumbar spine is: ----- L1-L4(G/cm2): 1.085 T Score Values are as follows: ----- L2: -1.6 ----- L3: -0.5 ----- L4: -0.9 ----- L1-L4: -0.8 Bone mineral density has: Increased 7.9% since study of: 08/15/2016 Bone mineral density about the R hip (g/cm2): 0.809 Bone mineral density about the L hip (g/cm2): 0.779 T Score values are as follows: -----R Neck: -1.6 -----L Neck: -1.9 -----R Total: -1.7 -----L Total: -2.0 Bone mineral density has: NO CHANGE 0.0% since study of: 08/15/2016 IMPRESSION: Normal (Values between +1 and -1 indicate normal bone mass). Consider repeating this study in 5 year s or sooner if there is some new clinical indication. NOTE: T-SCORE=SD OF THE YOUNG ADULT MEAN.
== END | disposition home or self-care (01) ==
LOC: RADBDWWP 12:19
PROVIDERS: ATTEND Internal Medicine Endocrinology, Diabetes & Metabolism
DX: E21.0 Primary hyperparathyroidism (principal); E04.2 Nontoxic multinodular goiter
CPT/HCPCS: 77080; 80053; 81050; 82340; 83970; 84439; 84443

== ENCOUNTER → 2018-03-30 | Outpatient (CLI) | payer MEDICARE, BC ==
--- NOTE | 2018-03-30 13:22 | XR ---
EXAMINATION TYPE: XR chest 2V DATE OF EXAM: 03/30/2018 COMPARISON: 12/05/2016 HISTORY: Shortness of breath and dysrhythmia for 6 months TECHNIQUE: Frontal and lateral views of the chest are obtained. FINDINGS: There is no focal air space opacity, pleural effusion, or pneumothorax seen. The cardiac silhouette size is within normal limits. The osseous structures are intact. Incidental note is made of a cardiac loop recorder multilevel. Mild degenerative changes of the thoracic spine and right gle nohumeral/acromio clavicular joints. IMPRESSION: No acute cardiopulmonary process.
== END | disposition home or self-care (01) ==
LOC: RADXRMAIN 11:32
PROVIDERS: ATTEND Family Medicine
DX: R07.89 Other chest pain (principal); R06.00 Dyspnea, unspecified
CPT/HCPCS: 71046

== ENCOUNTER → 2018-06-21 | Outpatient (CLI) | payer MEDICARE, BC ==
[2018-06-21 14:59] LABS: Albumin 3.7 g/dL (3.5-5.0); Calcium 10.3 mg/dL (8.4-10.2); Potassium 4.2 mmol/L (3.5-5.1); Total Bilirubin 0.5 mg/dL (0.2-1.3); Total Protein 6.5 g/dL (6.3-8.2)
[2018-06-21 19:27] LABS: Parathyroid Hormone Intact 66.7 pg/mL (14.0-72.0)
== END | disposition home or self-care (01) ==
LOC: LABWHC1 13:41
PROVIDERS: ATTEND Internal Medicine Endocrinology, Diabetes & Metabolism
DX: E21.0 Primary hyperparathyroidism (principal)
CPT/HCPCS: 36415; 80053; 82306; 83970

== ENCOUNTER → 2018-09-05 | Outpatient (CLI) | payer MEDICARE, BC ==
--- NOTE | 2018-09-06 13:45 | MM ---
Reason for exam: screening (asymptomatic). Last mammogram was performed 1 year and 2 months ago. History: Patient is postmenopausal and history of other cancer. Took hormonal contraceptives for 10 years. Took estrogen for 10 years. Physical Findings: A clinical breast exam by your physician is recommended on an annual basis and results should be correlated with mammographic findings. MG 3D Screening Mammo W/Cad Bilateral CC, MLO, and XCCL view(s) were taken. Prior study comparison: July 12, 2017, bilateral MG 3d screening mammo w/cad. April 20, 2017, left breast MG 3d diag mammo w/cad LT. The breast tissue is heterogeneously dense. This may lower the sensitivity of mammography. Stable benign calcifications. There is no discrete abnormality. No significant changes when compared with prior studies. ASSESSMENT: Benign, BI-RAD 2 RECOMMENDATION: Routine screening mammogram of both breasts in 1 year.
== END | disposition home or self-care (01) ==
LOC: RADMAMWWP 13:09
PROVIDERS: ATTEND Family Medicine
DX: Z12.31 Encounter for screening mammogram for malignant neoplasm of breast (principal)
CPT/HCPCS: 77063; 77067

== ENCOUNTER → 2018-11-14 | Outpatient (CLI) | payer MEDICARE, BC ==
[2018-11-14 12:28] LABS: Basophils # (A) 0.1 k/uL (0-0.2); Basophils % (A) 2 %; Eosinophils # (A) 0.2 k/uL (0-0.7); Eosinophils % (A) 5 %; HCT 42.5 % (34.0-46.0); HGB 14.1 gm/dL (11.4-16.0); Lymphocytes # (A) 1.4 k/uL (1.0-4.8); Lymphocytes % (A) 33 %; MCH 30.2 pg (25.0-35.0); MCHC 33.2 g/dL (31.0-37.0); Mean Platelet Volume 7.1; Monocytes # (A) 0.3 k/uL (0-1.0); Monocytes % (A) 6 %; Neutrophils # (A) 2.3 k/uL (1.3-7.7); Neutrophils % (A) 53 %; Platelet Count 209 k/uL (150-450); RBC 4.67 m/uL (3.80-5.40); RDW 14.1 % (11.5-15.5); WBC 4.2 k/uL (3.8-10.6)
[2018-11-14 19:22] LABS: Albumin 4.1 g/dL (3.80-4.90); Albumin/Globulin Ratio 1.71 (1.20-2.10); Anion Gap 6.5 mmol/L (4.00-12.00); Carbon Dioxide 26.5 mmol/L (21.6-31.8); Globulin 2.4 g/dL (1.6-3.3); LDL Cholesterol,Calculated 121.6 mg/dL (0.0-131.0); Phosphorus 3.2 mg/dL (2.4-5.1); Potassium 4.5 mmol/L (3.5-5.5); Total Bilirubin 0.6 mg/dL (0.3-1.2); Total Protein 6.5 g/dL (6.2-8.2); VLDL Calculation 23.4 mg/dL (5.00-40.00)
== END | disposition home or self-care (01) ==
LOC: LABWHC1 11:09
PROVIDERS: ATTEND Family Medicine
DX: E78.5 Hyperlipidemia, unspecified (principal); E55.9 Vitamin D deficiency, unspecified; R00.0 Tachycardia, unspecified
CPT/HCPCS: 36415; 80053; 80061; 82306; 84100; 85025

== ENCOUNTER → 2018-12-21 | Outpatient (CLI) | payer MEDICARE, BC ==
[2018-12-21 18:50] LABS: Albumin/Globulin Ratio 1.74 (1.60-3.17); Calcium 10.2 mg/dL (8.7-10.3); Globulin 2.3 g/dL (1.6-3.3); Potassium 4.5 mmol/L (3.5-5.5); Total Bilirubin 0.6 mg/dL (0.2-1.2); Total Protein 6.3 g/dL (6.2-8.2)
[2018-12-21 18:56] LABS: Parathyroid Hormone Intact 70.4 pg/mL (14.0-72.0)
[2018-12-21 18:57] LABS: Vitamin D 25 Hydroxy 30.2 ng/mL (30.0-100.0)
== END | disposition home or self-care (01) ==
LOC: LABWHC1 14:04
PROVIDERS: ATTEND Internal Medicine Endocrinology, Diabetes & Metabolism
DX: E04.2 Nontoxic multinodular goiter (principal); E21.0 Primary hyperparathyroidism
CPT/HCPCS: 36415; 80053; 82306; 83970; 84443

== ENCOUNTER 2019-04-10 11:30 | Emergency (ER) | payer MEDICARE, BC ==
[2019-04-10 11:59] VITALS: BP 152/76; PULSE 59; RESP 16; TEMP 98.1
[2019-04-10] MEDS ORDERED: GELATIN SPONGE,ABSORB (LARGE) 1 EACH SPONGE TOPICAL STA (12:43)
--- NOTE | 2019-04-10 12:45 | ED ---
General Adult HPI - General Chief complaint: Wound/Laceration Stated complaint: Laceration Time Seen by Provider: 04/10/19 12:20 Source: patient, RN notes reviewed Mode of arrival: ambulatory Limitations: no limitations - History of Present Illness Initial comments: 78-year-old female presents to the emergency department for chief complaint of laceration to the left second digit. Patient states she was trying to take the cap off her razor when she accidentally cut her finger. Denies any difficulty moving the finger. States she is on Plavix and eloquent so it would not stop bleeding at home. Patient is up-to-date on tetanus. Denies any other injuries.Patient has no other complaints at this time including shortness of breath, chest pain, abdominal pain, nausea or vomiting, headache, or visual changes. - Related Data Home Medications Medication Instructions Recorded Confirmed Cholecalciferol [Vitamin D3 (25 1,000 unit PO DAILY 12/05/16 05/01/17 Mcg = 1000 Iu)] Clopidogrel Bisulfate [Plavix] 75 mg PO DAILY 12/05/16 05/01/17 Metoprolol Tartrate [Lopressor] 25 mg PO BID 12/05/16 05/01/17 Omeprazole [PriLOSEC] 40 mg PO DAILY 12/05/16 05/01/17 Pravastatin Sodium [Pravachol] 40 mg PO HS 12/05/16 05/01/17 amLODIPine BESYLATE [Norvasc] 5 mg PO DAILY 12/05/16 05/01/17 Benazepril HCl 20 mg PO DAILY 05/01/17 05/01/17 Allergies Allergy/AdvReac Type Severity Reaction Status Date / Time No Known Allergies Allergy Verified 04/10/19 11:59 Review of Systems ROS Statement: Those systems with pertinent positive or pertinent negative responses have been documented in the HPI. ROS Other: All systems not noted in ROS Statement are negative. Past Medical History Past Medical History: Chest Pain / Angina, CVA/TIA, GERD/Reflux, Hyperlipidemia, Hypertension, Osteoarthritis (OA) Additional Past Medical History / Comment(s): past migraines,tia 2005,palpitations, varicose veins, seasonal allergies/sinus, diverticulosis, hiatal hernia History of Any Multi-Drug Resistant Organisms: None Reported Past Surgical History: Bladder Surgery, Cholecystectomy, Heart Catheterization, Hysterectomy, Tonsillectomy Additional Past Surgical History / Comment(s): cataracts,egd/colonoscopy, Past Anesthesia/Blood Transfusion Reactions: No Reported Reaction Past Psychological History: No Psychological Hx Reported Smoking Status: Never smoker Past Alcohol Use History: None Reported Past Drug Use History: None Reported - Past Family History Father Family Medical History: Coronary Artery Disease (CAD) Additional Family Medical History / Comment(s): heart problems Mother Additional Family Medical History / Comment(s): "blood disorder"too many wbc's, but not leukemia" General Exam Limitations: no limitations General appearance: alert, in no apparent distress Head exam: Present: atraumatic, normocephalic, normal inspection Eye exam: Present: normal appearance, PERRL, EOMI. Absent: scleral icterus, conjunctival injection, periorbital swelling ENT exam: Present: normal exam, mucous membranes moist Neck exam: Present: normal inspection, full ROM. Absent: tenderness, meningismus Respiratory exam: Present: normal lung sounds bilaterally. Absent: respiratory distress, wheezes, rales, rhonchi, stridor Cardiovascular Exam: Present: regular rate, normal rhythm, normal heart sounds. Absent: systolic murmur, diastolic murmur, rubs, gallop, clicks Extremities exam: Present: other (Patient has a small less than 1 cm superficial avulsion of the left second digit finger pad. Small amount of bleeding noted. Capillary refill intact. Full range of motion in the left second digit. No other injuries noted in the hand.) Neurological exam: Present: alert, oriented X3, CN II-XII intact Psychiatric exam: Present: normal affect, normal mood Course Vital Signs 04/10/19 11:56 Temperature 98.1 F Pulse Rate 59 L Respiratory 16 Rate Blood Pressure 152/76 O2 Sat by Pulse 98 Oximetry Medical Decision Making - Medical Decision Making 70-year-old female presents for laceration to left second digit. This is more of a superficial avulsion to the left finger pad less than 1 cm by less than 1 cm. Patient is on Eliquis and Plavix so is having some mild bleeding. This is not able to be stitched as it is an avulsion. I did clean this thoroughly with pressure irrigation with sodium chloride. I then applied Gelfoam. Bleeding is now controlled. Discussed directions were Gelfoam and to follow up with primary care. Tetanus is up-to-date in the past 5 years. Patient will return here if she has any worsening symptoms. Vitals are stable. Disposition Clinical Impression: Laceration Disposition: HOME SELF-CARE Condition: Good Instructions (If sedation given, give patient instructions): Skin Avulsion (ED) Additional Instructions: Please take off dressing tomorrow. Let Gelfoam fall off on its own. If bleeding reoccurs you may try to apply another layer of the Gelfoam. However if you cannot get the bleeding to stop then return here to the emergency department. Watch for signs of infection such as spreading or streaking redness and return if these occur. Return if you have any other worsening symptoms. Otherwise follow-up with primary care in 1-2 days. Is patient prescribed a controlled substance at d/c from ED?: No Referrals: April Peres MD [Primary Care Provider] - 1-2 days Time of Disposition: 13:23
== END 2019-04-10 13:42 | disposition home or self-care (01) ==
LOC: EC 11:30
DX: S61.201A Unspecified open wound of left index finger without damage to nail, initial encounter (principal); K21.9 Gastro-esophageal reflux disease without esophagitis; E78.5 Hyperlipidemia, unspecified; I10 Essential (primary) hypertension; Z79.02 Long term (current) use of antithrombotics/antiplatelets; Z79.899 Other long term (current) drug therapy; Z95.5 Presence of coronary angioplasty implant and graft; W26.8XXA Contact with other sharp object(s), not elsewhere classified, initial encounter
CPT/HCPCS: 99282

== ENCOUNTER → 2019-06-21 | Outpatient (CLI) | payer MEDICARE, BC ==
--- NOTE | 2019-06-21 15:11 | US ---
EXAMINATION TYPE: US thyroid st tissue head/neck DATE OF EXAM: 06/21/2019 COMPARISON: US 01/08/2018 CLINICAL HISTORY: E04.2 Nontoxic multinodular goiter. GLAND SIZE: Right Lobe: 3.6 x 1.0 x 0.9 cm Overall Parenchyma: heterogenous Left Lobe: 3.5 x 0.7 x 1.0 cm Overall Parenchyma: heterogeneous Isthmus Thickness: 0.3 cm NODULES RIGHT: # of nodules measured on right: 1 1. 0.4 X 0.4 x 0.4 cm hypoechoic mixed nodule at the mid pole with well-defined margins; . This no dule is wider than tall and shows intranodular vascularity. Prior size: 0.4 x 0.5 x 0.3 cm LEFT: # of nodules measured on left: 3 1. 0.6 X 0.5 x 0.5 cm hypoechoic cystic nodule at the lower pole with well-defined margins; . This nodule is wider than tall and shows no intranodular vascularity. Prior size: No previous 2. 0.6 X 0.5 x 0.5 cm hypoechoic mixed nodule at the lower pole with well-defined margins; . This n odule is wider than tall and shows no intranodular vascularity. Prior size: 0.9 x 0.6 x 0.5 cm 3. 0.6 X 0.4 x 0.6 cm hypoechoic solid nodule at the mid pole with well-defined margins; . This nod ule is wider than tall and shows no intranodular vascularity. Prior size: 0.9 x 0.3 x 0.6 cm ISTHMUS: # of nodules measured in the isthmus: 0 Bilateral neck scanned, no evidence of lymphadenopathy. IMPRESSION: Similar-appearing bilateral subcentimeter thyroid nodules with a solitary new 6 mm left thyroid nodul e. Findings are compatible with a multinodular goiter. The previously seen nodule inferior to the rig ht thyroid gland suspicious for a thyroid adenoma is not redemonstrated. This could have represented a small lymph node.
[2019-06-21 15:35] LABS: Calcium 10.3 mg/dL (8.4-10.2); Potassium 4.3 mmol/L (3.5-5.1); Total Bilirubin 0.4 mg/dL (0.2-1.3); Total Protein 7.2 g/dL (6.3-8.2)
[2019-06-21 15:52] LABS: T4, Free (Free Thyroxine) 1.07 ng/dL (0.78-2.19)
[2019-06-21 19:00] LABS: Vitamin D 25 Hydroxy 36.2 ng/mL (30.0-100.0)
== END | disposition home or self-care (01) ==
LOC: RADUSWWP 14:15
PROVIDERS: ATTEND Internal Medicine Endocrinology, Diabetes & Metabolism
DX: E04.1 Nontoxic single thyroid nodule (principal); E04.2 Nontoxic multinodular goiter; E21.0 Primary hyperparathyroidism
CPT/HCPCS: 76536; 80053; 82306; 83970; 84439; 84443

== ENCOUNTER 2019-08-03 21:13 | Emergency (ER) | payer MEDICARE, BC ==
[2019-08-03 21:20] VITALS: RESP 18
--- NOTE | 2019-08-03 21:51 | XR ---
EXAMINATION TYPE: XR chest 1V portable DATE OF EXAM: 08/03/2019 COMPARISON: 03/30/2018 HISTORY: Fall. Chest pain TECHNIQUE: Single frontal view of the chest is obtained. FINDINGS: There is no heart failure nor confluent pneumonic infiltrate. Costophrenic angles are preeti r. There are no hilar masses. There is no pleural effusion or pneumothorax. IMPRESSION: No active cardiopulmonary disease. No change.
--- NOTE | 2019-08-03 21:52 | XR ---
EXAMINATION TYPE: XR pelvis AP view DATE OF EXAM: 08/03/2019 COMPARISON: NONE HISTORY: Fall. Pain. TECHNIQUE: Single view FINDINGS: The pelvic ring is intact. Proximal femurs and hip joints appear intact. There is no sign o f hip dysplasia. Sacroiliac joints appear intact. IMPRESSION: No acute abnormality of the pelvis.
[2019-08-03] MEDS ORDERED: DIPH,PERTUS(ACELL)TETVAC-LF 0.5 ML VIAL IM ONE (22:08)
--- NOTE | 2019-08-03 22:12 | ED ---
General Adult HPI - General Chief complaint: Fall Stated complaint: Fall Time Seen by Provider: 08/03/19 21:27 Source: patient, family Mode of arrival: wheelchair Limitations: no limitations - History of Present Illness Initial comments: Dictation was produced using [employer] dictation software. please excuse any grammatical, word or spelling errors. Chief Complaint: 79-year-old female on eliquis presents with fall. History of Present Illness: Patient is a 79-year-old female she tripped and fell causing her to fall forward. She was carrying a tray of cupcakes when she fell down one step. She struck her head on the ground. Patient denies any loss of consciousness. Patient states she is on eliquis for some sort of intracranial i ssue. She thinks this medication is for stroke prevention. Patient has no other pain complaints at this time. She does not know when her last tetanus was. Patient denies any focal neurologic deficits. Denies any headache. She was ambulatory after the incident. The ROS documented in this emergency department record has been reviewed and confirmed by me. Those systems with pertinent positive or negative responses have been documented in the HPI. All other systems are other negative and/or noncontributory. PHYSICAL EXAM: General Impression: Alert and oriented x3, not in acute distress HEENT: 2 x 2 centimeter hematoma over the left anterior forehead, superficial abrasion over the bridge of the nose, extra-ocular movements intact, pupils equal and reactive to light bilaterally, mucous membranes moist. Cardiovascular: Heart regular rate and rhythm, S1&S2 audible, no murmurs, rubs o r gallops Chest: Lungs clear to auscultation bilaterally, no rhonchi, no wheeze, no rales Abdomen: Bowel sounds present, abdomen soft, non-tender, non-distended, no organomegaly Musculoskeletal: Pulses present and equal in all extremities, no peripheral edema, bilateral knee abrasions, no midline spinal tenderness Motor: no focal deficits noted Neurological: CN II-XII grossly intact, no focal motor or sensory deficits noted Skin: Intact with no visualized rashes Psych: Normal affect and mood ED course: 79-year-old female Ted moreno presents after fall from one step. She did strike her head. Upon arrival shows findings within acceptable limits. Patient is well-appearing at bedside. She has no logic deficits. Denies any headache. Patient was activated level II trauma because she fell off 1 step and it was not considered a ground-level fall. Patient was seen and evaluated initially in the room via ATLS protocol. Patient's primary survey was negative. Secondary survey as mentioned and physical examination. Computed tomography scan of the head and C-spine shows no intracranial pro cesses. C-spine is unremarkable. Pelvis x-ray chest x-rays obtained showing no acute processes. Laboratory evaluation obtained found to be unremarkable. Patient observed in emergency department for several hours with stable medical condition. Patient ambulatory at baseline. Patient tolerate by mouth at bedside. Patient's tetanus was updated. Discussed findings and results with patient. Patient told to seek medical attention if she has any worsening symptoms including headache, strokelike symptoms or altered mental status. They're understandable and agreeable to plan. Patient is going home with family and can be monitored by family members. She is otherwise advised to follow-up with primary care physician upon discharge. - Related Data Home Medications Medication Instructions Recorded Confirmed Cholecalciferol [Vitamin D3 (25 2,000 unit PO DAILY 12/05/16 08/03/19 Mcg = 1000 Iu)] Clopidogrel Bisulfate [Plavix] 75 mg PO DAILY 12/05/16 08/03/19 Omeprazole [PriLOSEC] 40 mg PO DAILY PRN 12/05/16 08/03/19 Pravastatin Sodium [Pravachol] 40 mg PO HS 12/05/16 08/03/19 Benazepril HCl 20 mg PO DAILY 05/01/17 08/03/19 Apixaban [Eliquis] 5 mg PO BID 08/03/19 08/03/19 Cyanocobalamin (Vitamin B-12) 1,000 mcg PO DAILY 08/03/19 08/03/19 [Vitamin B-12] Sertraline HCl [Zoloft] 50 mg PO DAILY 08/03/19 08/03/19 amLODIPine [Norvasc] 2.5 mg PO DAILY 08/03/19 08/03/19 Allergies Allergy/AdvReac Type Severity Reaction Status Date / Time No Known Allergies Allergy Verified 08/03/19 21:59 Review of Systems ROS Statement: Those systems with pertinent positive or pertinent negative responses have been documented in the HPI. ROS Other: All systems not noted in ROS Statement are negative. Past Medical History Past Medical History: Chest Pain / Angina, CVA/TIA, GERD/Reflux, Hyperlipidemia, Hypertension, Osteoarthritis (OA) Additional Past Medical History / Comment(s): past migraines,tia 2006,palpitations, varicose veins, seasonal allergies/sinus, diverticulosis, hiatal hernia History of Any Multi-Drug Resistant Organisms: None Reported Past Surgical History: Bladder Surgery, Cholecystectomy, Heart Catheterization, Hysterectomy, Tonsillectomy Additional Past Surgical History / Comment(s): cataracts,egd/colonoscopy, Past Anesthesia/Blood Transfusion Reactions: No Reported Reaction Past Psychological History: No Psychological Hx Reported Smoking Status: Never smoker Past Alcohol Use History: None Reported Past Drug Use History: None Reported - Past Family History Father Family Medical History: Coronary Artery Disease (CAD) Additional Family Medical History / Comment(s): heart problems Mother Additional Family Medical History / Comment(s): "blood disorder"too many wbc's, but not leukemia" General Exam Limitations: no limitations Course Vital Signs 08/03/19 08/03/19 21:14 22:51 Temperature 97.9 F Pulse Rate 79 69 Respiratory 18 18 Rate Blood Pressure 193/84 169/73 O2 Sat by Pulse 98 97 Oximetry Medical Decision Making - Lab Data Result diagrams: 08/03/19 22:00 08/03/19 22:00 Lab Results 08/03/19 08/03/19 08/03/19 Range/Units 21:50 22:00 22:00 WBC 7.7 (3.8-10.6) k/uL RBC 4.82 (3.80-5.40) m/uL Hgb 14.6 (11.4-16.0) gm/dL Hct 44.1 (34.0-46.0) % MCV 91.4 (80.0-100.0) fL MCH 30.3 (25.0-35.0) pg MCHC 33.2 (31.0-37.0) g/dL RDW 16.0 H (11.5-15.5) % Plt Count 236 (150-450) k/uL Neutrophils % 51 % Lymphocytes % 34 % Monocytes % 7 % Eosinophils % 5 % Basophils % 1 % Neutrophils # 3.9 (1.3-7.7) k/uL Lymphocytes # 2.6 (1.0-4.8) k/uL Monocytes # 0.5 (0-1.0) k/uL Eosinophils # 0.4 (0-0.7) k/uL Basophils # 0.1 (0-0.2) k/uL Anisocytosis Slight PT (9.0-12.0) sec INR (<1.2) APTT (22.0-30.0) sec Sodium 140 (137-145) mmol/L Potassium 4.1 (3.5-5.1) mmol/L Chloride 103 (98-107) mmol/L Carbon Dioxide 25 (22-30) mmol/L Anion Gap 12 mmol/L BUN 22 H (7-17) mg/dL Creatinine 0.87 (0.52-1.04) mg/dL Est GFR (CKD-EPI)AfAm 73 (>60 ml/min/1.73 sqM) Est GFR (CKD-EPI)NonAf 64 (>60 ml/min/1.73 sqM) Glucose 130 H (74-99) mg/dL Plasma Lactic Acid Hai (0.7-2.0) mmol/L Calcium 10.7 H (8.4-10.2) mg/dL Total Bilirubin 0.5 (0.2-1.3) mg/dL AST 32 (14-36) U/L ALT 20 (9-52) U/L Alkaline Phosphatase 90 (38-126) U/L Total Creatine Kinase (30-135) U/L CK-MB (CK-2) (0.0-2.4) ng/mL CK-MB (CK-2) Rel Index Troponin I (0.000-0.034) ng/mL Total Protein 8.2 (6.3-8.2) g/dL Albumin 4.5 (3.5-5.0) g/dL Amylase 84 (30-110) U/L Lipase 189 (23-300) U/L Serum Alcohol <10 mg/dL Blood Type Blood Type Confirm A Positive Blood Type Recheck Bld Type Recheck Status Antibody Screen Spec Expiration Date 08/03/19 08/03/19 08/03/19 Range/Units 22:00 22:00 22:00 WBC (3.8-10.6) k/uL RBC (3.80-5.40) m/uL Hgb (11.4-16.0) gm/dL Hct (34.0-46.0) % MCV (80.0-100.0) fL MCH (25.0-35.0) pg MCHC (31.0-37.0) g/dL RDW (11.5-15.5) % Plt Count (150-450) k/uL Neutrophils % % Lymphocytes % % Monocytes % % Eosinophils % % Basophils % % Neutrophils # (1.3-7.7) k/uL Lymphocytes # (1.0-4.8) k/uL Monocytes # (0-1.0) k/uL Eosinophils # (0-0.7) k/uL Basophils # (0-0.2) k/uL Anisocytosis PT 11.5 (9.0-12.0) sec INR 1.1 (<1.2) APTT 25.3 (22.0-30.0) sec Sodium (137-145) mmol/L Potassium (3.5-5.1) mmol/L Chloride (98-107) mmol/L Carbon Dioxide (22-30) mmol/L Anion Gap mmol/L BUN (7-17) mg/dL Creatinine (0.52-1.04) mg/dL Est GFR (CKD-EPI)AfAm (>60 ml/min/1.73 sqM) Est GFR (CKD-EPI)NonAf (>60 ml/min/1.73 sqM) Glucose (74-99) mg/dL Plasma Lactic Acid Hai 1.5 (0.7-2.0) mmol/L Calcium (8.4-10.2) mg/dL Total Bilirubin (0.2-1.3) mg/dL AST (14-36) U/L ALT (9-52) U/L Alkaline Phosphatase (38-126) U/L Total Creatine Kinase 56 (30-135) U/L CK-MB (CK-2) 0.5 (0.0-2.4) ng/mL CK-MB (CK-2) Rel Index 0.9 Troponin I <0.012 (0.000-0.034) ng/mL Total Protein (6.3-8.2) g/dL Albumin (3.5-5.0) g/dL Amylase (30-110) U/L Lipase (23-300) U/L Serum Alcohol mg/dL Blood Type Blood Type Confirm Blood Type Recheck Bld Type Recheck Status Antibody Screen Spec Expiration Date 08/03/19 Range/Units 22:00 WBC (3.8-10.6) k/uL RBC (3.80-5.40) m/uL Hgb (11.4-16.0) gm/dL Hct (34.0-46.0) % MCV (80.0-100.0) fL MCH (25.0-35.0) pg MCHC (31.0-37.0) g/dL RDW (11.5-15.5) % Plt Count (150-450) k/uL Neutrophils % % Lymphocytes % % Monocytes % % Eosinophils % % Basophils % % Neutrophils # (1.3-7.7) k/uL Lymphocytes # (1.0-4.8) k/uL Monocytes # (0-1.0) k/uL Eosinophils # (0-0.7) k/uL Basophils # (0-0.2) k/uL Anisocytosis PT (9.0-12.0) sec INR (<1.2) APTT (22.0-30.0) sec Sodium (137-145) mmol/L Potassium (3.5-5.1) mmol/L Chloride (98-107) mmol/L Carbon Dioxide (22-30) mmol/L Anion Gap mmol/L BUN (7-17) mg/dL Creatinine (0.52-1.04) mg/dL Est GFR (CKD-EPI)AfAm (>60 ml/min/1.73 sqM) Est GFR (CKD-EPI)NonAf (>60 ml/min/1.73 sqM) Glucose (74-99) mg/dL Plasma Lactic Acid Hai (0.7-2.0) mmol/L Calcium (8.4-10.2) mg/dL Total Bilirubin (0.2-1.3) mg/dL AST (14-36) U/L ALT (9-52) U/L Alkaline Phosphatase (38-126) U/L Total Creatine Kinase (30-135) U/L CK-MB (CK-2) (0.0-2.4) ng/mL CK-MB (CK-2) Rel Index Troponin I (0.000-0.034) ng/mL Total Protein (6.3-8.2) g/dL Albumin (3.5-5.0) g/dL Amylase (30-110) U/L Lipase (23-300) U/L Serum Alcohol mg/dL Blood Type A Positive Blood Type Confirm Blood Type Recheck No Previous Record Bld Type Recheck Status CABO Indicated Antibody Screen NEGATIVE Spec Expiration Date 08/06/2019 - 2299 Disposition Clinical Impression: Head contusion Disposition: HOME SELF-CARE Condition: Good Instructions (If sedation given, give patient instructions): Fall Prevention for Older Adults (ED) Is patient prescribed a controlled substance at d/c from ED?: No Referrals: April Peres MD [Primary Care Provider] - 1-2 days Time of Disposition: 23:20
[2019-08-03 22:26] LABS: Anisocytosis Slight; Basophils # (A) 0.1 k/uL (0-0.2); Basophils % (A) 1 %; Eosinophils # (A) 0.4 k/uL (0-0.7); Eosinophils % (A) 5 %; HCT 44.1 % (34.0-46.0); HGB 14.6 gm/dL (11.4-16.0); Lymphocytes # (A) 2.6 k/uL (1.0-4.8); Lymphocytes % (A) 34 %; MCH 30.3 pg (25.0-35.0); MCHC 33.2 g/dL (31.0-37.0); MCV 91.4 fL (80.0-100.0); Mean Platelet Volume 7.5; Monocytes # (A) 0.5 k/uL (0-1.0); Monocytes % (A) 7 %; Neutrophils # (A) 3.9 k/uL (1.3-7.7); Neutrophils % (A) 51 %; Platelet Count 236 k/uL (150-450); RBC 4.82 m/uL (3.80-5.40); WBC 7.7 k/uL (3.8-10.6)
[2019-08-03 22:34] LABS: INR 1.1 (<1.2); Partial Thromboplastin Time 25.3 sec (22.0-30.0); Prothrombin Time 11.5 sec (9.0-12.0)
[2019-08-03 22:38] LABS: ALT 20 U/L (9-52); AST 32 U/L (14-36); African American GFR (CKD) 73 (>60 ml/min/1.73 sqM); Albumin 4.5 g/dL (3.5-5.0); Alcohol <10 mg/dL; Alkaline Phosphatase 90 U/L (38-126); Amylase 84 U/L (30-110); Anion Gap 12 mmol/L; Blood Urea Nitrogen 22 mg/dL (7-17); Calcium 10.7 mg/dL (8.4-10.2); Carbon Dioxide 25 mmol/L (22-30); Chloride 103 mmol/L (98-107); Glucose 130 mg/dL (74-99); Potassium 4.1 mmol/L (3.5-5.1); Sodium 140 mmol/L (137-145); Total Bilirubin 0.5 mg/dL (0.2-1.3); Total Protein 8.2 g/dL (6.3-8.2)
--- NOTE | 2019-08-03 22:41 | CT ---
EXAMINATION TYPE: CT brain dianna ann con DATE OF EXAM: 08/03/2019 COMPARISON: 05/01/2017 HISTORY: Pt missed a step, falling face-first into street. Hematoma on forehead CT DLP: 1423.9 mGycm Automated exposure control for dose reduction was used. TECHNIQUE: CT scan of the head and cervical spine are performed without contrast. FINDINGS: There is mild cerebral atrophy. There is no mass effect nor midline shift. There is no si gn of intracranial hemorrhage. The calvarium is intact. There is left frontal scalp hematoma. Skull b ase is intact. Cervical vertebra have fairly normal spacing and alignment. Posterior elements are intact. There is m inor degenerative disc changes at C6-7. There is multilevel mild cervical facet arthropathy. There is no evidence of cervical spine fracture. IMPRESSION: Negative CT scan of the brain. Acute left frontal scalp hematoma. Minor degenerative changes in the cervical spine. No fracture. No change.
[2019-08-03 22:48] LABS: Creatine Kinase 56 U/L (30-135)
[2019-08-03 23:01] LABS: Creatine Kinase MB 0.5 ng/mL (0.0-2.4); Troponin I <0.012 ng/mL (0.000-0.034)
[2019-08-03 23:44] VITALS: BP 171/70; PULSE 72; TEMP 98.1
== END 2019-08-03 23:40 | disposition home or self-care (01) ==
LOC: EC 21:13
DX: S00.83XA Contusion of other part of head, initial encounter (principal); S00.31XA Abrasion of nose, initial encounter; K21.9 Gastro-esophageal reflux disease without esophagitis; E78.5 Hyperlipidemia, unspecified; I10 Essential (primary) hypertension; I25.2 Old myocardial infarction; Z79.02 Long term (current) use of antithrombotics/antiplatelets; Z79.82 Long term (current) use of aspirin; Z79.899 Other long term (current) drug therapy; Z79.01 Long term (current) use of anticoagulants; Z86.69 Personal history of other diseases of the nervous system and sense organs; Z86.73 Personal history of transient ischemic attack (TIA), and cerebral infarction without residual deficits; Z95.5 Presence of coronary angioplasty implant and graft; Z53.20 Procedure and treatment not carried out because of patient's decision for unspecified reasons; W10.9XXA Fall (on) (from) unspecified stairs and steps, initial encounter; Y93.89 Activity, other specified
CPT/HCPCS: 36415; 86900; 86901; 80053; 82150; 82550; 82553; 83605; 83690; 84484; 85025; 85610; 85730; 86850; 72170; 71045; 72125; 70450; 99284; G0480; 80320

== ENCOUNTER → 2019-11-08 | Outpatient (CLI) | payer MEDICARE, BC ==
--- NOTE | 2019-11-14 10:11 | MM ---
Reason for exam: screening (asymptomatic). Last mammogram was performed 1 year and 2 months ago. History: Patient is postmenopausal and history of other cancer. Took hormonal contraceptives for 10 years. Took estrogen for 10 years. Physical Findings: A clinical breast exam by your physician is recommended on an annual basis and results should be correlated with mammographic findings. MG 3D Screening Mammo W/Cad Bilateral CC and MLO view(s) were taken. Prior study comparison: September 05, 2018, bilateral MG 3d screening mammo w/cad. July 12, 2017, bilateral MG 3d screening mammo w/cad. The breast tissue is heterogeneously dense. This may lower the sensitivity of mammography. Benign appearing bilateral calcifications. No suspicious abnormality. No significant changes when compared with prior studies. ASSESSMENT: Benign, BI-RAD 2 RECOMMENDATION: Routine screening mammogram of both breasts in 1 year.
== END | disposition home or self-care (01) ==
LOC: RADMAMWWP 13:17
PROVIDERS: ATTEND Family Medicine
DX: Z12.31 Encounter for screening mammogram for malignant neoplasm of breast (principal)
CPT/HCPCS: 77063; 77067

== ENCOUNTER → 2019-12-27 | Outpatient (CLI) | payer MEDICARE, BC ==
[2019-12-27 18:28] LABS: African American GFR (CKD) 81.3 (60.0-200.0); Albumin 4.1 g/dL (3.80-4.90); Albumin/Globulin Ratio 1.64 (1.60-3.17); Anion Gap 8.2 mmol/L (4.00-12.00); Calcium 10.1 mg/dL (8.7-10.3); Carbon Dioxide 25.8 mmol/L (21.6-31.8); Globulin 2.5 g/dL (1.6-3.3); Non-African American GFR(CKD) 70.1 (60.0-200.0); Potassium 4.1 mmol/L (3.5-5.5); Total Bilirubin 0.5 mg/dL (0.2-1.2); Total Protein 6.6 g/dL (6.2-8.2)
[2019-12-27 18:36] LABS: T4, Free (Free Thyroxine) 1.2 ng/dL (0.80-1.80)
== END | disposition home or self-care (01) ==
LOC: LABWHC1 13:34
PROVIDERS: ATTEND Internal Medicine Endocrinology, Diabetes & Metabolism
DX: E21.0 Primary hyperparathyroidism (principal); E04.2 Nontoxic multinodular goiter
CPT/HCPCS: 36415; 80053; 82306; 83970; 84439; 84443

== ENCOUNTER → 2020-01-14 | Day surgery (SDC) | payer MEDICARE, BC ==
[2020-01-09 16:09] VITALS: BMI 31.8
[~2020-01-14] MED LIST: LIDOCAINE 1% INJ 10MG/ML (20 ML MDV) SQ ONE; MIDAZOLAM 2 MG/2 ML VIAL IV ONE; SODIUM CHLORIDE 0.9% 1,000 ML IV SCH
[2020-01-14 11:33] VITALS: RESP 18; TEMP 98.1
[2020-01-14 11:37] LABS: Basophils # (A) 0.1 k/uL (0-0.2); Basophils % (A) 1 %; Eosinophils # (A) 0.2 k/uL (0-0.7); Eosinophils % (A) 4 %; HCT 42.8 % (34.0-46.0); HGB 14.1 gm/dL (11.4-16.0); Lymphocytes # (A) 1.6 k/uL (1.0-4.8); Lymphocytes % (A) 31 %; MCH 29.4 pg (25.0-35.0); MCHC 32.9 g/dL (31.0-37.0); MCV 89.4 fL (80.0-100.0); Mean Platelet Volume 7.7; Monocytes # (A) 0.3 k/uL (0-1.0); Monocytes % (A) 6 %; Neutrophils # (A) 2.9 k/uL (1.3-7.7); Neutrophils % (A) 57 %; Platelet Count 219 k/uL (150-450); RBC 4.79 m/uL (3.80-5.40); RDW 13.9 % (11.5-15.5); WBC 5.2 k/uL (3.8-10.6)
--- NOTE | 2020-01-14 15:13 | P.PCN ---
Preoperative Diagnosis: Diagnosis: Atrial fibrillation, loop monitor at ANTHONY Loop explant under sedation and local anesthesia. Operators: Dr. Catherine and Wilma Casas PA-C Patient was brought to the EP lab in a fasting state. Written informed consent was obtained prior to the procedure. The subcutaneous device was successfully explanted under local anesthesia. Preoperative antibiotics were administered. The wound was closed in layers and dressed per protocol. Result: Successful loop monitor explantation. Patient underwent EP procedure under conscious sedation/moderate sedation under Dr. Catherine's supervision, monitoring of the level of consciousness and physiologic parameters including but not limited to vital signs and oxygenation. Patient tolerated the procedure well without any acute complications. Start time: 1449 Stop time: 1500
[2020-01-14 16:13] VITALS: BP 168/74; PULSE 64
== END ==
LOC: CATHEP 10:52
PROVIDERS: ATTEND Internal Medicine Clinical Cardiac Electrophysiology
DX: Z45.09 Encounter for adjustment and management of other cardiac device (principal); I48.0 Paroxysmal atrial fibrillation; I49.3 Ventricular premature depolarization; I49.1 Atrial premature depolarization; I10 Essential (primary) hypertension; E78.5 Hyperlipidemia, unspecified; E78.00 Pure hypercholesterolemia, unspecified; Z79.01 Long term (current) use of anticoagulants; Z79.02 Long term (current) use of antithrombotics/antiplatelets; Z79.899 Other long term (current) drug therapy; Z79.1 Long term (current) use of non-steroidal anti-inflammatories (NSAID)
CPT/HCPCS: 33286; 85025; J2250; J0690; J2001

== ENCOUNTER → 2020-06-25 | Outpatient (CLI) | payer MEDICARE, BC ==
[2020-06-25 19:01] LABS: African American GFR (CKD) 61.6 (60.0-200.0); Albumin/Globulin Ratio 1.67 (1.60-3.17); Anion Gap 6.8 mmol/L (4.00-12.00); Carbon Dioxide 26.2 mmol/L (21.6-31.8); Globulin 2.4 g/dL (1.6-3.3); Non-African American GFR(CKD) 53.2 (60.0-200.0); Total Bilirubin 0.7 mg/dL (0.3-1.2); Total Protein 6.4 g/dL (6.2-8.2)
[2020-06-25 19:09] LABS: T4, Free (Free Thyroxine) 1.2 ng/dL (0.80-1.80)
== END | disposition home or self-care (01) ==
LOC: LABWHC1 14:18
PROVIDERS: ATTEND Internal Medicine Endocrinology, Diabetes & Metabolism
DX: E21.0 Primary hyperparathyroidism (principal); E04.2 Nontoxic multinodular goiter
CPT/HCPCS: 36415; 80053; 82306; 83970; 84439; 84443

== ENCOUNTER → 2020-06-30 | Outpatient (CLI) | payer MEDICARE, BC ==
--- NOTE | 2020-06-30 09:50 | US ---
EXAMINATION TYPE: US thyroid st tissue head/neck DATE OF EXAM: 06/30/2020 COMPARISON: Thyroid ultrasound June 21, 2019. Nuclear medicine parathyroid scan 2018. CT cervical sp ine 2019 CLINICAL HISTORY: E21.0 HYPERPARATHYROIDISM. follow up exam GLAND SIZE: Right Lobe: 4.3 x 1.1 x 1.3 cm Overall Parenchyma: heterogenous Left Lobe: 3.3 x 0.9 x 1.5 cm Overall Parenchyma: heterogeneous Isthmus Thickness: 0.4 cm NODULES RIGHT: # of nodules measured on right: 1 1. 0.5 x 0.5 x 0.4 cm mixed nodule at the mid pole with well-defined margins. This nodule is wider than tall and shows no intranodular vascularity. Prior size: 0.4 x 0.4 x 0.4 cm LEFT: # of nodules measured on left: 1 1. 0.6 x 0.5 x 0.7 cm hypoechoic solid nodule at the mid pole with well-defined margins. This nodul e is wider than tall and shows no intranodular vascularity. Prior size: 0.6 x 0.3 x 0.6 cm ISTHMUS: # of nodules measured in the isthmus: 0 Bilateral neck scanned, no evidence of lymphadenopathy. Persistent heterogeneous small size thyroid with few small scattered nodules. No suspicious extra thy roid nodules noted. IMPRESSION: As above. No suspicious extra thyroid nodules to suggest parathyroid adenoma. No new grea ter than 1 cm solid thyroid nodules identified.
== END | disposition home or self-care (01) ==
LOC: RADUSWWP 07:05
PROVIDERS: ATTEND Internal Medicine Endocrinology, Diabetes & Metabolism
DX: E21.0 Primary hyperparathyroidism (principal)
CPT/HCPCS: 76536

== ENCOUNTER → 2021-01-05 | Outpatient (CLI) | payer MEDICARE, BC ==
[2021-01-05 20:47] LABS: Chol/HDL Ratio 2.91; LDL Cholesterol,Calculated 101.4 mg/dL (0.0-131.0); VLDL Calculation 22.6 mg/dL (5.00-40.00)
== END | disposition home or self-care (01) ==
LOC: LABWHC1 13:54
PROVIDERS: ATTEND Nurse Practitioner Adult Health
DX: E78.5 Hyperlipidemia, unspecified (principal)
CPT/HCPCS: 36415; 80061; 83721

== ENCOUNTER 2021-04-30 00:20 | Emergency (ER) | payer MEDICARE, BC ==
[2021-04-30 00:25] VITALS: RESP 20; TEMP 98
--- NOTE | 2021-04-30 00:33 | ED ---
Head Injury HPI - General Chief complaint: Head Injury Stated complaint: Fall, head injury Time Seen by Provider: 04/30/21 00:30 Source: patient, family, RN notes reviewed, old records reviewed Mode of arrival: ambulatory Limitations: no limitations - History of Present Illness Initial comments: This is a patient is a result presents from a fall. Fall on the back of her head hitting the back of her head but no other complaints of pain. Patient does have bleeding and laceration to the back of her head she is on Ahlquist and aspirin. No office of consciousness. No headache chest pain shortness of breath or abdominal pain. Patient presents with son Complaint: head injury, fall -: hour(s) Mechanism of Injury: mechanical fall Location: occipital Loss of Consciousness: no Previous Trauma to this Area: No Place: home Radiation: none Severity: mild Severity scale (1-10): 3 Other Injuries: laceration Context: on Aspirin, on other anticoagulant Associated Symptoms: denies other symptoms - Related Data Home Medications Medication Instructions Recorded Confirmed Cholecalciferol [Vitamin D3 (25 2,000 unit PO DAILY 12/05/16 01/14/20 Mcg = 1000 Iu)] Clopidogrel Bisulfate [Plavix] 75 mg PO DAILY 12/05/16 01/14/20 Omeprazole [PriLOSEC] 40 mg PO DAILY PRN 12/05/16 01/14/20 Pravastatin Sodium [Pravachol] 40 mg PO HS 12/05/16 01/14/20 Benazepril HCl 20 mg PO HS 05/01/17 01/14/20 Apixaban [Eliquis] 5 mg PO BID 08/03/19 01/14/20 Cyanocobalamin (Vitamin B-12) 1,000 mcg PO DAILY 08/03/19 01/14/20 [Vitamin B-12] Sertraline HCl [Zoloft] 50 mg PO HS 08/03/19 01/14/20 amLODIPine [Norvasc] 5 mg PO DAILY 08/03/19 01/14/20 Allergies/Adverse reactions: Allergies Allergy/AdvReac Type Severity Reaction Status Date / Time No Known Allergies Allergy Verified 04/30/21 00:25 Review of Systems ROS Statement: Those systems with pertinent positive or pertinent negative responses have been documented in the HPI. ROS Other: All systems not noted in ROS Statement are negative. Past Medical History Past Medical History: Chest Pain / Angina, CVA/TIA, GERD/Reflux, Hyperlipidemia, Hypertension, Osteoarthritis (OA) Additional Past Medical History / Comment(s): past migraines,tia 2005,palpitations, varicose veins, seasonal allergies/sinus, diverticulosis, hiatal hernia History of Any Multi-Drug Resistant Organisms: None Reported Past Surgical History: Bladder Surgery, Cholecystectomy, Heart Catheterization, Hysterectomy, Tonsillectomy Additional Past Surgical History / Comment(s): cataracts,egd/colonoscopy, Past Anesthesia/Blood Transfusion Reactions: No Reported Reaction Past Psychological History: No Psychological Hx Reported Smoking Status: Never smoker Past Alcohol Use History: None Reported Past Drug Use History: None Reported - Past Family History Father Family Medical History: Coronary Artery Disease (CAD) Additional Family Medical History / Comment(s): heart problems Mother Additional Family Medical History / Comment(s): "blood disorder"too many wbc's, but not leukemia" General Exam Limitations: no limitations General appearance: alert, in no apparent distress Head exam: Present: normocephalic, normal inspection. Absent: atraumatic (5 cm laceration to occipital) Eye exam: Present: normal appearance, PERRL, EOMI. Absent: scleral icterus, conjunctival injection, periorbital swelling ENT exam: Present: normal exam, mucous membranes moist Neck exam: Present: normal inspection. Absent: tenderness, meningismus, lymphadenopathy Respiratory exam: Present: normal lung sounds bilaterally. Absent: respiratory distress, wheezes, rales, rhonchi, stridor Cardiovascular Exam: Present: regular rate, normal rhythm, normal heart sounds. Absent: systolic murmur, diastolic murmur, rubs, gallop, clicks GI/Abdominal exam: Present: soft, normal bowel sounds. Absent: distended, tenderness, guarding, rebound, rigid Extremities exam: Present: normal inspection, full ROM, normal capillary refill. Absent: tenderness, pedal edema, joint swelling, calf tenderness Back exam: Present: normal inspection Neurological exam: Present: alert, oriented X3, CN II-XII intact Psychiatric exam: Present: normal affect, normal mood Skin exam: Present: warm, dry, intact, normal color. Absent: rash Course Vital Signs 04/30/21 00:21 Temperature 98 F Pulse Rate 95 Respiratory 20 Rate Blood Pressure 179/96 O2 Sat by Pulse 98 Oximetry - Reevaluation(s) Reevaluation #1: 04/30/21 02:33 Attic record is reviewed Reevaluation #2: 04/30/21 02:33 Wound is cleaned and symptoms are improved Reevaluation #3: 04/30/21 02:34 Patient informed results and questions are answered Medical Decision Making - Medical Decision Making 80-year-old female DF for evaluation patient Dese for evaluation regards to fall, follow with head laceration. Laceration is repaired. He is negative patient can be discharged home - Radiology Data Radiology results: report reviewed (CT brain C-spine negative for acute disease), image reviewed Disposition Clinical Impression: Contusion of scalp, Closed head injury, Occipital scalp laceration Disposition: HOME SELF-CARE Condition: Good Instructions (If sedation given, give patient instructions): Head Injury (ED), Staple Care (ED) Is patient prescribed a controlled substance at d/c from ED?: No Referrals: Sukhwinder Benavides [Primary Care Provider] - 1-2 days
--- NOTE | 2021-04-30 01:20 | CT ---
EXAM: CT Head Without Intravenous Contrast CLINICAL HISTORY: ITS.REASON CT Reason: fall TECHNIQUE: Axial computed tomography images of the head/brain without intravenous contrast. CTDI is 45.2 mGy and DLP is 990.2 mGy-cm. This CT exam was performed using one or more of the following dose reduction techniques: automated exposure control, adjustment of the mA and/or kV according to patient size, and/or use of iterative reconstruction technique. COMPARISON: No relevant prior studies available. FINDINGS: Brain: Mild periventricular white matter low density consistent with chronic small vessel disease. There is no evidence of acute large vessel infarct or intracranial hemorrhage. Ventricles: Unremarkable. No ventriculomegaly. Bones/joints: See below. Soft tissues: There is a right posterior scalp laceration and hematoma. No skull fracture is seen. Sinuses: Unremarkable as visualized. No acute sinusitis. Mastoid air cells: Unremarkable as visualized. No mastoid effusion. IMPRESSION: 1. There is a right posterior scalp laceration and hematoma. No skull fracture is seen. 2. Mild periventricular white matter low density consistent with chronic small vessel disease. There is no evidence of acute large vessel infarct or intracranial hemorrhage. EXAM: CT Cervical Spine Without Intravenous Contrast CLINICAL HISTORY: ITS.REASON CT Reason: fall TECHNIQUE: Axial computed tomography images of the cervical spine without intravenous contrast. CTDI is 11.8 mGy and DLP is 339.8 mGy-cm. This CT exam was performed using one or more of the following dose reduction techniques: automated exposure control, adjustment of the mA and/or kV according to patient size, and/or use of iterative reconstruction technique. COMPARISON: No relevant prior studies available. FINDINGS: Vertebrae: Mild narrowing and osteophytosis of the atlantodental joint. The odontoid process is intact. No acute fracture. Interspaces: Mild multilevel disc space narrowing and osteophytosis throughout the cervical spine. There is mild to moderate multilevel facet arthrosis. No acute cervical spine fracture or subluxation is seen. Soft tissues: Unremarkable. Lung apices: Mild fibrotic changes are seen within the lungs. DISCS/SPINAL CANAL/NEURAL FORAMINA: C2-C3: Mild disc space narrowing. No spinal stenosis. C3-C4: Mild disc space narrowing. No spinal stenosis. C4-C5: Mild disc space narrowing. No spinal stenosis. C5-C6: Mild disc space narrowing. No spinal stenosis. C6-C7: Moderate disc space narrowing and mild anterior osteophytosis. No spinal stenosis. C7-T1: Mild disc space narrowing. No spinal stenosis. IMPRESSION: Mild multilevel disc space narrowing and osteophytosis throughout the cervical spine. There is mild to moderate multilevel facet arthrosis. No acute cervical spine fracture or subluxation is seen.
[2021-04-30 02:35] VITALS: BP 116/91; PULSE 74
== END 2021-04-30 02:51 | disposition home or self-care (01) ==
LOC: EC 00:20
DX: S01.01XA Laceration without foreign body of scalp, initial encounter (principal); E78.5 Hyperlipidemia, unspecified; I10 Essential (primary) hypertension; K21.9 Gastro-esophageal reflux disease without esophagitis; M19.90 Unspecified osteoarthritis, unspecified site; Z86.73 Personal history of transient ischemic attack (TIA), and cerebral infarction without residual deficits; Z90.49 Acquired absence of other specified parts of digestive tract; Z95.5 Presence of coronary angioplasty implant and graft; Z90.710 Acquired absence of both cervix and uterus; Z90.09 Acquired absence of other part of head and neck; W18.30XA Fall on same level, unspecified, initial encounter
CPT/HCPCS: 70450; 72125; 99284

== ENCOUNTER 2021-05-14 07:41 | Emergency (ER) | payer MEDICARE, BC ==
[2021-05-14 07:45] VITALS: TEMP 98
[2021-05-14] MEDS ORDERED: GELATIN SPONGE,ABSORB (SMALL) 1 EACH SPONGE TOPICAL STA (08:06)
[2021-05-14] MEDS ORDERED: LIDOCAINE 1%-EPI 1:100,000 20 ML VIAL SQ STA (08:09)
--- NOTE | 2021-05-14 08:42 | ED ---
General Adult HPI - General Chief complaint: Wound/Laceration Stated complaint: head lac-revisit Time Seen by Provider: 05/14/21 07:51 Source: patient, RN notes reviewed Mode of arrival: ambulatory Limitations: no limitations - History of Present Illness Initial comments: 81-year-old female with a past medical history of CVA, GERD, hyperlipidemia, hypertension currently on Plavix and eliquis resents to the emergency room for wound bleeding. Patient reports that she hit her head a while ago and had a laceration to the back of the head. This was on April 30 and she had arno placed. A few days ago she had the aron removed. Patient woke up today and the wound was bleeding. She presented to the emergency room.Patient has no other complaints at this time including shortness of breath, chest pain, abdominal pain, nausea or vomiting, headache, or visual changes. - Related Data Home Medications Medication Instructions Recorded Confirmed Cholecalciferol [Vitamin D3 (25 2,000 unit PO DAILY 12/05/16 01/14/20 Mcg = 1000 Iu)] Clopidogrel Bisulfate [Plavix] 75 mg PO DAILY 12/05/16 01/14/20 Omeprazole [PriLOSEC] 40 mg PO DAILY PRN 12/05/16 01/14/20 Pravastatin Sodium [Pravachol] 40 mg PO HS 12/05/16 01/14/20 Benazepril HCl 20 mg PO HS 05/01/17 01/14/20 Apixaban [Eliquis] 5 mg PO BID 08/03/19 01/14/20 Cyanocobalamin (Vitamin B-12) 1,000 mcg PO DAILY 08/03/19 01/14/20 [Vitamin B-12] Sertraline HCl [Zoloft] 50 mg PO HS 08/03/19 01/14/20 amLODIPine [Norvasc] 5 mg PO DAILY 08/03/19 01/14/20 Allergies Allergy/AdvReac Type Severity Reaction Status Date / Time No Known Allergies Allergy Verified 05/14/21 07:42 Review of Systems ROS Statement: Those systems with pertinent positive or pertinent negative responses have been documented in the HPI. ROS Other: All systems not noted in ROS Statement are negative. Past Medical History Past Medical History: Chest Pain / Angina, CVA/TIA, GERD/Reflux, Hyperlipidemia, Hypertension, Osteoarthritis (OA) Additional Past Medical History / Comment(s): past migraines,tia 2005,palpitations, varicose veins, seasonal allergies/sinus, diverticulosis, hiatal hernia History of Any Multi-Drug Resistant Organisms: None Reported Past Surgical History: Bladder Surgery, Cholecystectomy, Heart Catheterization, Hysterectomy, Tonsillectomy Additional Past Surgical History / Comment(s): cataracts,egd/colonoscopy, Past Anesthesia/Blood Transfusion Reactions: No Reported Reaction Past Psychological History: No Psychological Hx Reported Smoking Status: Never smoker Past Alcohol Use History: None Reported Past Drug Use History: None Reported - Past Family History Father Family Medical History: Coronary Artery Disease (CAD) Additional Family Medical History / Comment(s): heart problems Mother Additional Family Medical History / Comment(s): "blood disorder"too many wbc's, but not leukemia" General Exam Limitations: no limitations General appearance: alert Head exam: Absent: atraumatic (Patient has a 2 cm area of a healed laceration on the scalp with clot noted and small active bleeding) Eye exam: Present: normal appearance ENT exam: Present: normal exam, mucous membranes moist Neck exam: Present: normal inspection, full ROM. Absent: tenderness Respiratory exam: Present: normal lung sounds bilaterally. Absent: respiratory distress, wheezes Cardiovascular Exam: Present: regular rate, normal rhythm, normal heart sounds GI/Abdominal exam: Present: soft, normal bowel sounds. Absent: distended, tenderness, guarding, rebound, rigid Course Vital Signs 05/14/21 07:42 Temperature 98 F Pulse Rate 77 Respiratory 16 Rate Blood Pressure 158/82 O2 Sat by Pulse 99 Oximetry Medical Decision Making - Medical Decision Making Lidocaine with epi was injected which did stop the bleeding. Clots were removed from the wound to allow for better secondary intention wound healing. Hair was cleaned thoroughly in the shower. Pressure dressing applied. Patient will follow up with primary care and return for worsening symptoms. Disposition Clinical Impression: Wound dehiscence Disposition: HOME SELF-CARE Condition: Good Instructions (If sedation given, give patient instructions): Laceration (ED), Wound Dehiscence (ED) Additional Instructions: Remove pressure dressing tonight or tomorrow. Please follow up with your doctor in one to 2 days. Return to the ER for any worsening symptoms. Is patient prescribed a controlled substance at d/c from ED?: No Referrals: Sukhwinder Benavides [Primary Care Provider] - 1-2 days Time of Disposition: 08:57
[2021-05-14 09:12] VITALS: BP 148/79; PULSE 78; RESP 18
== END 2021-05-14 09:12 | disposition home or self-care (01) ==
LOC: EC 07:41
DX: T81.33XA Disruption of traumatic injury wound repair, initial encounter (principal); I10 Essential (primary) hypertension; E78.5 Hyperlipidemia, unspecified; K21.9 Gastro-esophageal reflux disease without esophagitis; M19.90 Unspecified osteoarthritis, unspecified site; Z79.01 Long term (current) use of anticoagulants; Z79.899 Other long term (current) drug therapy; Z86.73 Personal history of transient ischemic attack (TIA), and cerebral infarction without residual deficits; Z82.49 Family history of ischemic heart disease and other diseases of the circulatory system
CPT/HCPCS: 99282

== ENCOUNTER → 2021-09-06 | Outpatient (CLI) | payer MEDICARE, BC ==
--- NOTE | 2021-09-06 13:34 | BD ---
EXAMINATION TYPE: Axial Bone Density DATE OF EXAM: 09/06/2021 COMPARISON: 02.28.2018 CLINICAL HISTORY: 81 YR OLD FEMALE....ICD-10 CODE: M85.88 DISORDER OF BD Height: 61.3 Weight: 161 FRAX RISK QUESTIONS: Secondary Osteoporosis: YES 3. Menopause before 45: YES RISK FACTORS HISTORY OF: Diet low in dairy products/other sources of calcium: YES Postmenopausal woman: YES, AT AGE 45 TOTAL HYST Take estrogen and/or progesterone medications: YES, FOR ABOUT 5 YRS IN THE PAST, NONE NOW Lost more than 2 inches in height since high school: YES Hyperparathyroidism: NO Adrenal Insufficiency: NO MEDICATIONS: Additional Medications: BP MEDS, ZOLOFT, REFLUX MEDS, STATIN FOR CHOLESTEROL, VIT D AND VIT B12 Additional History: HYPERTENSION, REFLUX, CHOLESTEROL, EXAM MEASUREMENTS: Bone mineral densitometry was performed using the [employer] System. Bone mineral density as measured about the Lumbar spine is: ----- L1-L4(G/cm2): 1.031 T Score Values are as follows: ----- L1: -1.1 ----- L2: -1.7 ----- L3: -0.9 ----- L4: -1.5 ----- L1-L4: -1.2 Bone mineral density has: Decreased -3.6% since study of: 02.28.2018 Bone mineral density about the R hip (g/cm2): 0.750 Bone mineral density about the L hip (g/cm2): 0.727 T Score values are as follows: -----R Neck: -1.3 -----L Neck: -1.5 -----R Total: -2.0 -----L Total: -2.2 Bone mineral density has: Decreased -4.4% since study of: 02.28.2018 FRAX%s: THERE IS A 13.3% CHANCE FOR A MAJOR OSTEOPOROTIC FX AND A 3.3% FOR HIP.....PROBABILITY F OR FX IN 10 YRS TIME IMPRESSION: Osteopenia NOTE: T-SCORE=SD OF THE YOUNG ADULT MEAN.
== END | disposition home or self-care (01) ==
LOC: RADBDWWP 12:47
PROVIDERS: ATTEND Family Medicine
DX: M85.89 Other specified disorders of bone density and structure, multiple sites (principal); Z78.0 Asymptomatic menopausal state; I10 Essential (primary) hypertension; Z79.899 Other long term (current) drug therapy
CPT/HCPCS: 77080

== ENCOUNTER → 2021-09-29 | Outpatient (CLI) | payer MEDICARE, BC ==
--- NOTE | 2021-09-30 08:59 | US ---
EXAMINATION TYPE: US thyroid st tissue head/neck DATE OF EXAM: 09/29/2021 COMPARISON: US 2019 CLINICAL HISTORY: E04.1 Thyroid nodule. GLAND SIZE: Right Lobe: 4.3 x 1.1 x 1.1 cm Overall Parenchyma: heterogenous Left Lobe: 3.0 x 1.2 x 1.1 cm Overall Parenchyma: heterogeneous Isthmus Thickness: 0.2 cm NODULES RIGHT: # of nodules measured on right: 1 1. 0.8 X 0.4 x 0.7 cm, lower medial, mixed cystic and solid, hypoechoic nodule, which is wider than tall, with smooth margins, without echogenic foci. Prior size: no previous LEFT: # of nodules measured on left: 1 1. 0.8 X 0.6 x 0.8 cm, upper lateral, mixed cystic and solid, hypoechoic nodule, which is wider corina n tall, with lobulated or irregular margins, without echogenic foci. Prior size: 0.6 x 0.5 x 0.7 cm ISTHMUS: # of nodules measured in the isthmus: 0 Bilateral neck scanned, no evidence of lymphadenopathy. IMPRESSION: Heterogeneous thyroid with multiple bilateral sub centimeter nodules with largest described above.
== END | disposition home or self-care (01) ==
LOC: RADUSWWP 15:41
PROVIDERS: ATTEND Family Medicine
DX: E04.2 Nontoxic multinodular goiter (principal)
CPT/HCPCS: 76536

== ENCOUNTER 2023-02-01 02:32 | Inpatient (IN) | payer MEDICARE, BC ==
--- NOTE | 2023-02-01 03:48 | ED ---
General Adult HPI - General Chief complaint: Urogenital Stated complaint: Vaginal bleeding Time Seen by Provider: 02/01/23 02:44 Source: patient Mode of arrival: ambulatory - History of Present Illness Initial comments: This is an 82-year-old female with a past medical history including hypertension, atrial fibrillation on Eliquis presented to the emergency department for hematuria. The patient stated that she had suprapubic abdominal pain over the last 3 days and she thinks that is from a current UTI. The patient stated that she had similar episodes to this several years ago. The patient noted that she had blood noted in her urine over the last 3 days and with the associated pain she needed to be evaluated. The patient denied any fevers and chills however. The patient denied any other acute pain or complaints at this time. The patient did state that she has a history of a hysterectomy as well as oophrectomy. - Related Data Home Medications Medication Instructions Recorded Confirmed Cholecalciferol [Vitamin D3 (25 2,000 unit PO DAILY 12/05/16 01/14/20 Mcg = 1000 Iu)] Clopidogrel Bisulfate [Plavix] 75 mg PO DAILY 12/05/16 01/14/20 Omeprazole [PriLOSEC] 40 mg PO DAILY PRN 12/05/16 01/14/20 Pravastatin Sodium [Pravachol] 40 mg PO HS 12/05/16 01/14/20 Benazepril HCl 20 mg PO HS 05/01/17 01/14/20 Apixaban [Eliquis] 5 mg PO BID 08/03/19 01/14/20 Cyanocobalamin (Vitamin B-12) 1,000 mcg PO DAILY 08/03/19 01/14/20 [Vitamin B-12] Sertraline HCl [Zoloft] 50 mg PO HS 08/03/19 01/14/20 amLODIPine [Norvasc] 5 mg PO DAILY 08/03/19 01/14/20 Allergies Allergy/AdvReac Type Severity Reaction Status Date / Time No Known Allergies Allergy Verified 02/01/23 02:42 Review of Systems ROS Statement: Those systems with pertinent positive or pertinent negative responses have been documented in the HPI. ROS Other: All systems not noted in ROS Statement are negative. Past Medical History Past Medical History: Chest Pain / Angina, CVA/TIA, GERD/Reflux, Hyperlipidemia, Hypertension, Osteoarthritis (OA) Additional Past Medical History / Comment(s): past migraines,tia 2005,palpitations, varicose veins, seasonal allergies/sinus, diverticulosis, hiatal hernia History of Any Multi-Drug Resistant Organisms: None Reported Past Surgical History: Bladder Surgery, Cholecystectomy, Heart Catheterization, Hysterectomy, Tonsillectomy Additional Past Surgical History / Comment(s): cataracts,egd/colonoscopy, Past Anesthesia/Blood Transfusion Reactions: No Reported Reaction Past Psychological History: No Psychological Hx Reported Smoking Status: Never smoker Past Alcohol Use History: None Reported Past Drug Use History: None Reported - Past Family History Father Family Medical History: Coronary Artery Disease (CAD) Additional Family Medical History / Comment(s): heart problems Mother Additional Family Medical History / Comment(s): "blood disorder"too many wbc's, but not leukemia" General Exam Limitations: no limitations General appearance: alert, in no apparent distress Head exam: Present: atraumatic, normocephalic, normal inspection Eye exam: Present: normal appearance, PERRL Pupils: Present: normal accommodation ENT exam: Present: normal exam, normal oropharynx, mucous membranes moist Neck exam: Present: normal inspection, full ROM Respiratory exam: Present: normal lung sounds bilaterally Cardiovascular Exam: Present: regular rate, normal rhythm, normal heart sounds GI/Abdominal exam: Present: soft, tenderness (Mild tenderness noted over the suprapubic region), normal bowel sounds Extremities exam: Present: normal inspection, full ROM Back exam: Present: normal inspection, full ROM Neurological exam: Present: alert, oriented X3, CN II-XII intact Psychiatric exam: Present: normal affect, normal mood Skin exam: Present: warm, dry Course Vital Signs 02/01/23 02/01/23 02/01/23 02:40 03:09 06:16 Temperature 97.7 F Pulse Rate 90 93 89 Respiratory 16 16 16 Rate Blood Pressure 150/83 147/94 131/78 O2 Sat by Pulse 100 100 96 Oximetry Medical Decision Making - Medical Decision Making Was pt. sent in by a medical professional or institution (, PA, COMPUTER NETWORKER, urgent care, hospital, or custodial...) When possible be specific @ -No Did you speak to anyone other than the patient for history (EMS, parent, family, police, friend...)? What history was obtained from this source @ -No Did you review nursing and triage notes (agree or disagree)? Why? @ -I reviewed and agree with nursing and triage notes Were old charts reviewed (outside hosp., previous admission, EMS record, old EKG, old radiological studies, urgent care reports/EKG's, custodial records)? Report findings @ -No old charts were reviewed Differential Diagnosis (chest pain, altered mental status, abdominal pain women, abdominal pain men, vaginal bleeding, weakness, fever, dyspnea, syncope, headache, dizziness, GI bleed, back pain, seizure, CVA, palpatations, mental health)? @ -Hematuria, UTI, hemorrhagic cystitis EKG interpreted by me (3pts min.). @ -None X-rays interpreted by me (1pt min.). @ -None done CT interpreted by me (1pt min.). @ -CT urogram was ordered but was pending at this time. U/S interpreted by me (1pt. min.). @ -None done What testing was considered but not performed or refused? (CT, X-rays, U/S, labs)? Why? @ -None What meds were considered but not given or refused? Why? @ -None Did you discuss the management of the patient with other professionals (professionals i.e. , PA, COMPUTER NETWORKER, lab, RT, psych nurse, social insurance analyst, pot liner, teacher, deck officer, caser shoe parts)? Give summary @ -Yes, Dr. Hyde was contacted regarding the patient and did recommend CT urogram as well as continued bladder irrigation and will see the patient later this morning in the hospital. The admitting physician was also contacted. Was smoking cessation discussed for >3mins.? @ -No Was critical care preformed (if so, how long)? @ -No Were there social determinants of health that impacted care today? How? (Homelessness, low income, unemployed, alcoholism, drug addiction, tr ansportation, low edu. Level, literacy, decrease access to med. care, intermediate, rehab)? @ -No Was there de-escalation of care discussed even if they declined (Discuss DNR or withdrawal of care, Hospice)? DNR status @ -No What co-morbidities impacted this encounter? (DM, HTN, Smoking, COPD, CAD, Cancer, CVA, ARF, Chemo, Hep., AIDS, mental health diagnosis, sleep apnea, morbid obesity)? @ -Hypertension, atrial fibrillation on both Eliquis and Plavix Was patient admitted / discharged? Hospital course, mention meds given and route, prescriptions, significant lab abnormalities, going to OR and other pertinent info. @ -The patient was seen and evaluated in the emergency department. Physical exam, the patient was resting in bed without any acute distress. Vital signs admission were stable. Initially, laboratory workup was obtained including only a urinalysis however there was significant amount of blood and further testing of this urine was not possible. Due to the patient's continued suprapubic abdominal pain and emilie hematuria including clots, the patient was offered observation admission. The patient did agree to this and the urologist was contacted. Dr. Hyde was told of the patient's symptoms and did agree to continuous bladder irrigation in addition to CT urogram. He would evaluate the patient in the hospital in the morning. Laboratory workup was also obtained at this time. The patient will be placed in observation for evaluation by urology and continued bladder irrigation until that time. The patient was told of this plan and was agreeable. The patient was placed in observation in stable condition. Undiagnosed new problem with uncertain prognosis? @ -No Drug Therapy requiring intensive monitoring for toxicity (Heparin, Nitro, Insulin, Cardizem)? @ -No Were any procedures done? @ -No Diagnosis/symptom? @ -Hematuria in the setting of abdominal pain Acute, or Chronic, or Acute on Chronic? @ -Acute Uncomplicated (without systemic symptoms) or Complicated (systemic symptoms)? @ -Complicated Side effects of treatment? @ -No Exacerbation, Progression, or Severe Exacerbation? @ -No Poses a threat to life or bodily function? How? (Chest pain, USA, DC, pneumonia, PE, COPD, DKA, ARF, appy, cholecystitis, CVA, Diverticulitis, Homicidal, Suicidal, threat to staff... and all critical care pts) @ -No - Lab Data Result diagrams: 02/01/23 04:38 02/01/23 04:38 Lab Results 02/01/23 02/01/23 02/01/23 Range/Units 03:31 04:38 04:38 WBC 6.7 (3.8-10.6) k/uL RBC 4.07 (3.80-5.40) m/uL Hgb 12.5 (11.4-16.0) gm/dL Hct 36.7 (34.0-46.0) % MCV 90.4 (80.0-100.0) fL MCH 30.7 (25.0-35.0) pg MCHC 34.0 (31.0-37.0) g/dL RDW 13.7 (11.5-15.5) % Plt Count 213 (150-450) k/uL MPV 8.0 Neutrophils % 75 % Lymphocytes % 18 % Monocytes % 5 % Eosinophils % 1 % Basophils % 1 % Neutrophils # 5.0 (1.3-7.7) k/uL Lymphocytes # 1.2 (1.0-4.8) k/uL Monocytes # 0.3 (0-1.0) k/uL Eosinophils # 0.1 (0-0.7) k/uL Basophils # 0.0 (0-0.2) k/uL PT (9.0-12.0) sec INR (<1.2) APTT (22.0-30.0) sec Sodium 135 L (137-145) mmol/L Potassium 4.2 (3.5-5.1) mmol/L Chloride 108 H (98-107) mmol/L Carbon Dioxide 23 (22-30) mmol/L Anion Gap 4 mmol/L BUN 25 H (7-17) mg/dL Creatinine 0.80 (0.52-1.04) mg/dL Est GFR (CKD-EPI)AfAm 80 (>60 ml/min/1.73 sqM) Est GFR (CKD-EPI)NonAf 69 (>60 ml/min/1.73 sqM) Glucose 124 H (74-99) mg/dL Calcium 10.0 (8.4-10.2) mg/dL Magnesium 2.1 (1.6-2.3) mg/dL Total Bilirubin 0.5 (0.2-1.3) mg/dL AST 22 (14-36) U/L ALT 17 (4-34) U/L Alkaline Phosphatase 87 (38-126) U/L Total Protein 7.0 (6.3-8.2) g/dL Albumin 3.9 (3.5-5.0) g/dL Lipase 119 (23-300) U/L Urine Color Dark Red Urine Appearance Bloody H (Clear) Urine RBC >182 H (0-5) /hpf Urine WBC 181 H (0-5) /hpf Ur Squamous Epith Cells 12 H (0-4) /hpf Urine Bacteria Rare H (None) /hpf 02/01/23 Range/Units 04:38 WBC (3.8-10.6) k/uL RBC (3.80-5.40) m/uL Hgb (11.4-16.0) gm/dL Hct (34.0-46.0) % MCV (80.0-100.0) fL MCH (25.0-35.0) pg MCHC (31.0-37.0) g/dL RDW (11.5-15.5) % Plt Count (150-450) k/uL MPV Neutrophils % % Lymphocytes % % Monocytes % % Eosinophils % % Basophils % % Neutrophils # (1.3-7.7) k/uL Lymphocytes # (1.0-4.8) k/uL Monocytes # (0-1.0) k/uL Eosinophils # (0-0.7) k/uL Basophils # (0-0.2) k/uL PT 12.4 H (9.0-12.0) sec INR 1.2 H (<1.2) APTT 26.8 (22.0-30.0) sec Sodium (137-145) mmol/L Potassium (3.5-5.1) mmol/L Chloride (98-107) mmol/L Carbon Dioxide (22-30) mmol/L Anion Gap mmol/L BUN (7-17) mg/dL Creatinine (0.52-1.04) mg/dL Est GFR (CKD-EPI)AfAm (>60 ml/min/1.73 sqM) Est GFR (CKD-EPI)NonAf (>60 ml/min/1.73 sqM) Glucose (74-99) mg/dL Calcium (8.4-10.2) mg/dL Magnesium (1.6-2.3) mg/dL Total Bilirubin (0.2-1.3) mg/dL AST (14-36) U/L ALT (4-34) U/L Alkaline Phosphatase (38-126) U/L Total Protein (6.3-8.2) g/dL Albumin (3.5-5.0) g/dL Lipase (23-300) U/L Urine Color Urine Appearance (Clear) Urine RBC (0-5) /hpf Urine WBC (0-5) /hpf Ur Squamous Epith Cells (0-4) /hpf Urine Bacteria (None) /hpf Disposition Clinical Impression: Hematuria, Suprapubic abdominal pain Disposition: ADMITTED IP TO THIS HOSP Condition: Stable Is patient prescribed a controlled substance at d/c from ED?: No Time of Disposition: 04:30 Decision to Admit Reason: Admit from EC Decision Date: 02/01/23 Decision Time: 04:30
[2023-02-01 04:00] LABS: Bacteria,Urine Rare /hpf; RBC,Urine >182 /hpf (0-5); Squamous Epithelial Cell,Urine 12 /hpf (0-4); WBC,Urine 181 /hpf (0-5)
[2023-02-01 04:02] LABS: Appearance,Urine Bloody (Clear)
[2023-02-01 04:03] LABS: Color,Urine Dark Red
[2023-02-01] MEDS ORDERED: NALOXONE 0.4 MG/ML 1 ML VIAL IV PRN (04:45)
[2023-02-01 04:55] LABS: Basophils % (A) 1 %; Eosinophils # (A) 0.1 k/uL (0-0.7); Eosinophils % (A) 1 %; HCT 36.7 % (34.0-46.0); HGB 12.5 gm/dL (11.4-16.0); Lymphocytes # (A) 1.2 k/uL (1.0-4.8); Lymphocytes % (A) 18 %; MCH 30.7 pg (25.0-35.0); MCV 90.4 fL (80.0-100.0); Monocytes # (A) 0.3 k/uL (0-1.0); Monocytes % (A) 5 %; Neutrophils % (A) 75 %; Platelet Count 213 k/uL (150-450); RBC 4.07 m/uL (3.80-5.40); RDW 13.7 % (11.5-15.5); WBC 6.7 k/uL (3.8-10.6)
[2023-02-01 05:05] LABS: INR 1.2 (<1.2); Partial Thromboplastin Time 26.8 sec (22.0-30.0); Prothrombin Time 12.4 sec (9.0-12.0)
[2023-02-01 05:11] LABS: Albumin 3.9 g/dL (3.5-5.0); Magnesium 2.1 mg/dL (1.6-2.3); Potassium 4.2 mmol/L (3.5-5.1); Total Bilirubin 0.5 mg/dL (0.2-1.3)
[2023-02-01] MEDS ORDERED: SODIUM CHLORIDE 0.9% IRRIGATIO 3,000 ML IRRIGATION ONE ×3 (06:18→13:30)
--- NOTE | 2023-02-01 06:37 | CT ---
EXAMINATION TYPE: CT urogram wo/w con DATE OF EXAM: 02/01/2023 COMPARISON: 02/21/2012 HISTORY: Hematuria CT DLP: 2856.3 mGycm Automated exposure control for dose reduction was used. CONTRAST: Performed with IV Contrast, patient injected with 100 mL of Isovue 370. Images obtained without and with the IV contrast. Lung bases are clear. No pleural effusion. Heart size is normal. No pericardial effusion. Noncontrast images show no renal calculus. Liver spleen pancreas and stomach appear intact. The bile duct are not dilated. There is no adrenal mass. Kidneys have normal size and contour. No hydronephrosis. Ureters are not di lated. No retroperitoneal adenopathy. There is irregular 4.5 cm area of high attenuation in the depen dent urinary bladder. There is no inguinal hernia. No free fluid in the pelvis. The delayed images sh ow contrast in urinary bladder on the posterior aspect of the posterior bladder mass and this is cons istent with blood clot in the urinary bladder. No inguinal hernia. There is no mesenteric edema. No ascites or free air. No sign of a bowel obstruct ion. The lumbar vertebrae have normal alignment. Posterior elements are intact. No compression fracture. T he bony pelvis is intact. Hip joints are intact. Delayed images show normal renal excretion. Ureters have normal size and contour. Appendix not seen. No sign of thickened appendix. IMPRESSION: Large irregular mass in the posterior urinary bladder consistent with blood clot. No evidence of kojo l mass or obstruction. Appendix not seen. No sign of appendicitis.
[2023-02-01] MEDS: amLODIPine 5 MG TAB PO SCH (09:47)
--- NOTE | 2023-02-01 11:40 | P.GSCN ---
History of Present Illness Consult date: 02/01/23 Reason for Consult: Painful hematuria Requesting physician: Varghese Cassidy History of present illness: The patient is an 82-year-old female with a past medical history of HTN, A fib (on Eliquis), CVA (on Plavix), GERD and OA. She presented to the emergency department on 02/01/23 with suprapubic and abdominal pain, and hematuria for 3 days. Work up in the ED included a UA that is suggestive of a UTI. Lab work: no leukocytosis, serum creatinine 0.80. She underwent a CT urogram which showed no adrenal mass. Kidneys of normal size and contour. No hydronephrosis or hydroureter. A large irregular mass in the posterior urinary bladder is consistent with blood clots. No evidence of renal mass or obstruction. A three way Gutierrez catheter was placed and CBI was initiated. Review of Systems - Constitutional Denies chills, Denies fever - Cardiovascular Denies shortness of breath - Gastrointestinal Reports abdominal pain, Denies nausea, Denies vomiting - Genitourinary Genitourinary: Reports dysuria, Reports hematuria Past Medical History Past Medical History: Chest Pain / Angina, CVA/TIA, GERD/Reflux, Hyperlipidemia, Hypertension, Osteoarthritis (OA) Additional Past Medical History / Comment(s): past migraines,tia 2005,palpitations, varicose veins, seasonal allergies/sinus, diverticulosis, hiatal hernia History of Any Multi-Drug Resistant Organisms: None Reported Past Surgical History: Bladder Surgery, Cholecystectomy, Heart Catheterization, Hysterectomy, Tonsillectomy Additional Past Surgical History / Comment(s): cataracts,egd/colonoscopy, Past Anesthesia/Blood Transfusion Reactions: No Reported Reaction Past Psychological History: No Psychological Hx Reported Smoking Status: Never smoker Past Alcohol Use History: None Reported Past Drug Use History: None Reported - Past Family History Father Family Medical History: Coronary Artery Disease (CAD) Additional Family Medical History / Comment(s): heart problems Mother Additional Family Medical History / Comment(s): "blood disorder"too many wbc's, but not leukemia" Medications and Allergies Home Medications Medication Instructions Recorded Confirmed Type Cholecalciferol [Vitamin D3 (25 50 mcg PO DAILY 12/05/16 02/01/23 History Mcg = 1000 Iu)] Clopidogrel Bisulfate [Plavix] 75 mg PO DAILY 12/05/16 02/01/23 History Benazepril HCl 20 mg PO HS 05/01/17 02/01/23 History Apixaban [Eliquis] 5 mg PO BID 08/03/19 02/01/23 History Sertraline HCl [Zoloft] 50 mg PO HS 08/03/19 02/01/23 History amLODIPine [Norvasc] 5 mg PO DAILY 08/03/19 02/01/23 History Pravastatin Sodium [Pravachol] 80 mg PO HS 02/01/23 02/01/23 History Allergies Allergy/AdvReac Type Severity Reaction Status Date / Time No Known Allergies Allergy Verified 02/01/23 07:01 Surgical - Exam Vital Signs Temp Pulse Resp BP Pulse Ox 97.7 F 90 16 150/83 100 02/01/23 02:40 02/01/23 02:40 02/01/23 02:40 02/01/23 02:40 02/01/23 02:40 General: Well developed, well nourished. No acute distress. HEENT: Head is atraumatic, normocephalic. Lungs: Respirations even and nonlabored. On RA Abdomen/GI: Soft, non-distended. No guarding, rigidity, or abdominal tenderness. : + suprapubic tenderness. Three way Gutierrez catheter with CBI draining bright red urine Skin: Warm and dry Neurologic: Alert and oriented 3, CN II-XII grossly intact. No focal deficits. Psychiatric: Appropriate mood and affect. Results - Labs 02/01/23 04:38 02/01/23 04:38 Abnormal Lab Results - Last 24 Hours (Table) 02/01/23 02/01/23 02/01/23 Range/Units 03:31 04:38 04:38 PT 12.4 H (9.0-12.0) sec INR 1.2 H (<1.2) Sodium 135 L (137-145) mmol/L Chloride 108 H (98-107) mmol/L BUN 25 H (7-17) mg/dL Glucose 124 H (74-99) mg/dL Urine Appearance Bloody H (Clear) Urine RBC >182 H (0-5) /hpf Urine WBC 181 H (0-5) /hpf Ur Squamous Epith Cells 12 H (0-4) /hpf Urine Bacteria Rare H (None) /hpf Diabetes panel 02/01/23 Range/Units 04:38 Sodium 135 L (137-145) mmol/L Potassium 4.2 (3.5-5.1) mmol/L Chloride 108 H (98-107) mmol/L Carbon Dioxide 23 (22-30) mmol/L BUN 25 H (7-17) mg/dL Creatinine 0.80 (0.52-1.04) mg/dL Glucose 124 H (74-99) mg/dL Calcium 10.0 (8.4-10.2) mg/dL AST 22 (14-36) U/L ALT 17 (4-34) U/L Alkaline Phosphatase 87 (38-126) U/L Total Protein 7.0 (6.3-8.2) g/dL Albumin 3.9 (3.5-5.0) g/dL Calcium panel 02/01/23 Range/Units 04:38 Calcium 10.0 (8.4-10.2) mg/dL Albumin 3.9 (3.5-5.0) g/dL Pituitary panel 02/01/23 Range/Units 04:38 Sodium 135 L (137-145) mmol/L Potassium 4.2 (3.5-5.1) mmol/L Chloride 108 H (98-107) mmol/L Carbon Dioxide 23 (22-30) mmol/L BUN 25 H (7-17) mg/dL Creatinine 0.80 (0.52-1.04) mg/dL Glucose 124 H (74-99) mg/dL Calcium 10.0 (8.4-10.2) mg/dL Adrenal panel 02/01/23 Range/Units 04:38 Sodium 135 L (137-145) mmol/L Potassium 4.2 (3.5-5.1) mmol/L Chloride 108 H (98-107) mmol/L Carbon Dioxide 23 (22-30) mmol/L BUN 25 H (7-17) mg/dL Creatinine 0.80 (0.52-1.04) mg/dL Glucose 124 H (74-99) mg/dL Calcium 10.0 (8.4-10.2) mg/dL Total Bilirubin 0.5 (0.2-1.3) mg/dL AST 22 (14-36) U/L ALT 17 (4-34) U/L Alkaline Phosphatase 87 (38-126) U/L Total Protein 7.0 (6.3-8.2) g/dL Albumin 3.9 (3.5-5.0) g/dL - Imaging CT scan - abdomen: report reviewed, image reviewed Assessment and Plan Assessment: The patient denies any history of kidney stones or cancer. She reports having had a bladder suspension. The patient is on Eliquis for A fib and Plavix to lower her risk of recurrent stroke. She reports being on these medications for several years. She did have one episode of hematuria approximately two years ago which resolved spontaneously. Her Gutierrez catheter was irrigated with a Johann syringe at the bedside today with large pieces of clot returned. Patient tolerated well. Hematuria likely a result of cystitis and anticoagulation. Patient may need cytoscopy which may be done as oupatient procedure. Plan: - Continue CBI - Monitor Hgb - Start Rocephin for suspected UTI - Awaiting urine culture Thank you for this consultation Impression and plan of care have been directed as dictated by the signing physician. Liz Lombardi nurse practitioner acting as scribe for signing physician. Liz Lombardi [facility] [id number] Email: [email or web address] I have personally seen and examined the patient, reviewed the documentation and agree with the assessment and plan as written. Number of minutes spent on the visit: 35. Vicente Hyde MD Time with Patient: Greater than 30
--- NOTE | 2023-02-01 12:56 | P.HPIM ---
History of Present Illness H&P Date: 02/01/23 History of Presenting Illness: Patient is a very pleasant 82-year-old female with a past medical history of atrial fibrillation on anticoagulation with Eliquis, CVA on Plavix, hyp ertension, and hyperlipidemia. She presented to the emergency department with a chief complaint of suprapubic abdominal pain/discomfort. Patient reports this pain began on Monday01/27/23 and initially felt similar to previous UTI and was diagnosed with a urinary tract infection and started on nitrofurantoin 100 mg every 12 hours. Patient states despite taking this medication as prescribed, over the past 3 days this suprapubic pain significantly worsened and she noticed increasing blood in her urine and decreased urinary output. Patient denies having any fevers, chills, dysuria, or urinary frequency. Patient denies having any changes in her medications stating she has been on both Eliquis and Plavix for years. Patient underwent full evaluation in the emergency department. Labs completed and reviewed. CBC was unremarkable. Coagulation profile showing elevated PT of 12.4 and slightly elevated INR 1.2. CMP unremarkable with the exception of mild prerenal azotemia with BUN of 25. Urinalysis was a contaminated specimen reported as bloody appearance with greater than 182 RBCs, 181 WBCs, and 12, squamous epithelial cells. CT Urogram was completed revealing a large irregular mass in the posterior urinary bladder consistent with blood clot with no evidence of renal mass or obstruction. Patient was admitted under our services with consultation to urology. Review of systems: Pertinent positives and negatives as discussed in HPI, a complete review of systems was performed and all other systems are negative. Physical exam: Vital signs reviewed and stable. General: Nontoxic, no distress and appears stated age. Derm: Skin warm and dry, normal coloration for ethnicity. Head: Atraumatic, normocephalic and symmetric. Eyes: EOMs intact, no lid lag, and anicteric sclera Mouth: no lip lesions, mucus membranes moist Cardiovascular: regular rate and rhythm with normal S1S2, no murmur, positive posterior tibial pulses bilaterally, and cap refill < 2 seconds. Lungs: Respirations even, regular, and unlabored on room air. Lungs CTA bilaterally, no rhonchi, no rales, no wheezing, and no accessory muscle usage. GI/ soft, mild suprapubic tenderness/pain upon palpation, no guarding, no appreciable organomegaly. Gutierrez catheter in place to dependent drainage with dark red bloody urine with clots in tubing and collection bag. Ext: ROM intact. No gross muscle atrophy, no edema, no contractures Neuro: Speech clear, face symmetrical and CN II-XII grossly intact with no noted focal neuro deficits Psych: Alert and oriented to person, place, time, and situation. Appropriate and pleasant affect. Assessment and Plan of Care: Acute cystitis Gross hematuria -Labs completed and reviewed. CBC was unremarkable. Coagulation profile showing elevated PT of 12.4 and slightly elevated INR 1.2. CMP unremarkable with the exception of mild prerenal azotemia with BUN of 25. -Urinalysis was a contaminated specimen reported as bloody appearance with greater than 182 RBCs, 181 WBCs, and 12, squamous epithelial cells. Order placed for a repeat urinalysis and urine culture. -Patient started on Rocephin 1 g every 24 hours for suspected UTI. -CT Urogram was completed and radiology report reviewed revealing a large irregular mass in the posterior urinary bladder consistent with blood clot with no evidence of renal mass or obstruction. -Patient was admitted under our services with consultation to urology. Discussed plan of care with urology CAFE LEAD in detail and they plan on starting patient on continuous bladder irrigation. -Eliquis and Plavix held at this time. Paroxysmal Atrial fibrillation History of CVA, no reported deficits Hypertension Hyperlipidemia -At this time we will hold Eliquis and Plavix pending clearance from urology to resume. -Patient to continue daily medication regimen with amlodipine 5 mg daily, lisinopril 20 mg nightly, and pravastatin 80 mg nightly. The patient is admitted with an anticipated greater than 2 midnight stay for evaluation of acute cystitis with gross hematuria. CODE STATUS: Full code DVT prophylaxis: SCDs Discussed with: Patient, RN, and urology CAFE LEAD Anticipated discharge date: Clinical course to determine Anticipated discharge place: Home Patient was seen independently by Nurse Practitioner. This document was prepared using [employer] dictation software. Please allow for errors in pharmaceutical specialty representative while rare they do occur. Larry Beasley, CAFE LEAD rendered care for this patient independently, reviewed the findings and plan as documented in the note above. I did not physically speak with or examine the patient on this date. Past Medical History Past Medical History: Chest Pain / Angina, CVA/TIA, GERD/Reflux, Hyperlipidemia, Hypertension, Osteoarthritis (OA) Additional Past Medical History / Comment(s): past migraines,tia 2006,palpitations, varicose veins, seasonal allergies/sinus, diverticulosis, hiatal hernia History of Any Multi-Drug Resistant Organisms: None Reported Past Surgical History: Bladder Surgery, Cholecystectomy, Heart Catheterization, Hysterectomy, Tonsillectomy Additional Past Surgical History / Comment(s): cataracts,egd/colonoscopy, Past Anesthesia/Blood Transfusion Reactions: No Reported Reaction Past Psychological History: No Psychological Hx Reported Smoking Status: Never smoker Past Alcohol Use History: None Reported Past Drug Use History: None Reported - Past Family History Father Family Medical History: Coronary Artery Disease (CAD) Additional Family Medical History / Comment(s): heart problems Mother Additional Family Medical History / Comment(s): "blood disorder"too many wbc's, but not leukemia" Medications and Allergies Home Medications Medication Instructions Recorded Confirmed Type Cholecalciferol [Vitamin D3 (25 50 mcg PO DAILY 12/05/16 02/01/23 History Mcg = 1000 Iu)] Clopidogrel Bisulfate [Plavix] 75 mg PO DAILY 12/05/16 02/01/23 History Benazepril HCl 20 mg PO HS 05/01/17 02/01/23 History Apixaban [Eliquis] 5 mg PO BID 08/03/19 02/01/23 History Sertraline HCl [Zoloft] 50 mg PO HS 08/03/19 02/01/23 History amLODIPine [Norvasc] 5 mg PO DAILY 08/03/19 02/01/23 History Pravastatin Sodium [Pravachol] 80 mg PO HS 02/01/23 02/01/23 History Allergies Allergy/AdvReac Type Severity Reaction Status Date / Time No Known Allergies Allergy Verified 02/01/23 07:01 Physical Exam Vitals: Vital Signs Temp Pulse Resp BP Pulse Ox 02/01/23 06:16 89 16 131/78 96 02/01/23 03:09 93 16 147/94 100 02/01/23 02:40 97.7 F 90 16 150/83 100 Intake and Output 01/31/23 02/01/23 02/01/23 22:59 06:59 14:59 Other: Voiding Method Toilet Weight 70.76 kg Results CBC & Chem 7: 02/02/23 04:55 02/02/23 04:55 Labs: Abnormal Lab Results - Last 24 Hours (Table) 02/01/23 02/01/23 02/01/23 Range/Units 03:31 04:38 04:38 PT 12.4 H (9.0-12.0) sec INR 1.2 H (<1.2) Sodium 135 L (137-145) mmol/L Chloride 108 H (98-107) mmol/L BUN 25 H (7-17) mg/dL Glucose 124 H (74-99) mg/dL Urine Appearance Bloody H (Clear) Urine RBC >182 H (0-5) /hpf Urine WBC 181 H (0-5) /hpf Ur Squamous Epith Cells 12 H (0-4) /hpf Urine Bacteria Rare H (None) /hpf
[2023-02-01 15:59] LABS: Appearance,Urine Turbid (Clear); Bilirubin,Urine Negative (Negative); Blood,Urine Large (Negative); Color,Urine Dark Red; Glucose,Urine (UA) Negative (Negative); Ketones,Urine Negative (Negative); Leukocyte Esterase,Urine Small (Negative); Nitrite,Urine Negative (Negative); PH, Urine 6.5 (5.0-8.0); Protein,Urine 1+ (Negative); RBC,Urine >182 /hpf (0-5); Urobilinogen,Urine <2.0 mg/dL (<2.0); WBC,Urine 4 /hpf (0-5)
[2023-02-01 16:21] LABS: Specific Gravity,Urine 1.025 (1.001-1.035)
[2023-02-01] MEDS ORDERED: SODIUM CHLORIDE 0.9% IRRIGATIO 3,000 ML IRRIGATION SCH (20:00)
[2023-02-01] MEDS ORDERED: SODIUM CHLORIDE 0.9% IRRIGATION SCH (20:00)
[2023-02-01] MEDS: PRAVASTATIN SODIUM 80 MG TAB PO SCH (20:21)
[2023-02-01] MEDS: lisinopriL 20 MG TAB PO SCH (20:22)
[2023-02-01] MEDS: SERTRALINE 50 MG TAB PO SCH (20:22)
[2023-02-01] MEDS: SODIUM CHLORIDE 0.9% IRRIG 3,000 ML BAG IRRIGATION SCH (21:15)
[2023-02-02] MEDS: SODIUM CHLORIDE 0.9% IRRIG 3,000 ML BAG IRRIGATION SCH ×18 (02:48→23:08)
[2023-02-02 08:41] LABS: HCT 35.6 % (37.2-46.3); HGB 11.5 g/dL (12.0-15.0); MCH 29.9 pg (27.0-32.0); MCHC 32.3 g/dL (32.0-37.0); MCV 92.7 fL (80.0-97.0); Mean Platelet Volume 11.1 fL (9.5-12.2); NRBC Per 100 WBC 0 /100 WBCS (0.0-0.0); Platelet Count 220 X 10*3/uL (140-440); RBC 3.84 X 10*6/uL (4.10-5.20); RDW 14.3 % (11.5-14.5); WBC 6.97 X 10*3/uL (4.50-10.00)
[2023-02-02] MEDS: amLODIPine 5 MG TAB PO SCH (09:09)
[2023-02-02 09:29] LABS: African American GFR (CKD) 60.8 (60.0-200.0); Anion Gap 8.8 mmol/L (10.00-18.00); BUN/Creat Ratio 23.8 Ratio (12.00-20.00); Blood Urea Nitrogen 23.8 mg/dL (9.0-27.0); Calcium 10.1 mg/dL (8.7-10.3); Carbon Dioxide 24.2 mmol/L (20.0-27.5); Non-African American GFR(CKD) 52.4 (60.0-200.0); Potassium 4.4 mmol/L (3.5-5.5)
--- NOTE | 2023-02-02 13:16 | P.PN ---
Subjective Progress Note Date: 02/02/23 Principal diagnosis: Hematuria, possible UTI The patient is an 82-year-old female with a past medical history of HTN, A fib (on Eliquis), CVA (on Plavix), GERD and OA. She presented to the emergency department on 02/01/23 with suprapubic and abdominal pain, and hematuria for 3 days. Work up in the ED included a UA that is suggestive of a UTI. Lab work: no leukocytosis, serum creatinine 0.80. She underwent a CT urogram which showed no adrenal mass. Kidneys of normal size and contour. No hydronephrosis or hydroureter. A large irregular mass in the posterior urinary bladder is consistent with blood clots. No evidence of renal mass or obstruction. A three way Santamaria catheter was placed and CBI was initiated. 02/01 The patient denies any history of kidney stones or cancer. She reports having had a bladder suspension. The patient is on Eliquis for A fib and Plavix to lower her risk of recurrent stroke. She reports being on these medications for several years. She did have one episode of hematuria approximately two years ago which resolved spontaneously. Her Santamaria catheter was irrigated with a Johann syringe at the bedside today with large pieces of clot returned. Patient tolerated well. Hematuria likely a result of cystitis and anticoagulation. Patient may need cytoscopy which may be done as outpatient procedure. Objective - Vital Signs Vital signs: Vital Signs Temp 98 F 02/02/23 08:00 Pulse 63 02/02/23 08:00 Resp 16 02/02/23 08:00 BP 135/69 02/02/23 08:00 Pulse Ox 97 02/02/23 08:00 FiO2 Intake & Output 02/01/23 02/02/23 02/02/23 18:59 06:59 18:59 Intake Total 118 Output Total 5740 1950 1900 Balance -56 Weight 70.76 kg Intake: Oral 118 Output: Urine 0 Other 5740 1949 Other: Voiding Method Indwelling Catheter Indwelling Catheter Indwelling Catheter - Exam General: Well developed, well nourished. No acute distress. HEENT: Head is atraumatic, normocephalic. Lungs: Respirations even and nonlabored. On RA Abdomen/GI: Soft, non-distended. No guarding, rigidity, or abdominal tenderness. : + suprapubic tenderness - improved. Three way Santamaria catheter with CBI draining light pink Skin: Warm and dry Neurologic: Alert and oriented 3, CN II-XII grossly intact. No focal deficits. Psychiatric: Appropriate mood and affect. - Labs CBC & Chem 7: 02/02/23 04:55 02/02/23 04:55 Labs: Abnormal Lab Results - Last 24 Hours (Table) 02/01/23 02/02/23 02/02/23 Range/Units 14:15 04:55 04:55 RBC 3.84 L (4.10-5.20) X 10*6/uL Hgb 11.5 L (12.0-15.0) g/dL Hct 35.6 L (37.2-46.3) % Anion Gap 8.80 L (10.00-18.00) mmol/L Est GFR (CKD-EPI)NonAf 52.4 L (60.0-200.0) BUN/Creatinine Ratio 23.80 H (12.00-20.00) Ratio Urine Appearance Turbid H (Clear) Urine Protein 1+ H (Negative) Urine Blood Large H (Negative) Ur Leukocyte Esterase Small H (Negative) Urine RBC >182 H (0-5) /hpf Microbiology - Last 24 Hours (Table) 02/01/23 14:15 Urine Culture - Preliminary Urine,Catheterized Assessment and Plan Assessment: The patient is resting in bed. She stated her suprapubic pain has improved significantly. Her Santamaria catheter with CBI is draining light pink urine, no clots noted. Hgb 11.5 today. Urine culture pending. CBI clamped at 1100 today to assess further hematuria. Hematuria likely a result of cycstitis from UTI and anticoagulation. Patient may need cytoscopy which may be done as outpatient procedure. 1300 Patient's urine in santamaria is light pink. When irrigated it immediatley clears up. RN instructed to leave CBI off and watch output. May irrigate prn. 2114 Urine remains light pink in color with CBI off. (1) Hematuria Current Visit: Yes Status: Acute Code(s): R31.9 - HEMATURIA, UNSPECIFIED SNOMED Code(s): 63800050 Plan: - Clamp CBI and reassess hematuria - Monitor Hgb - Continue Rocephin - Awaiting urine culture Thank you for this consultation Impression and plan of care have been directed as dictated by the signing physician. Liz Lombardi nurse practitioner acting as scribe for signing physician. Liz Lombardi [facility] Palliative Care/Urology [facility] [id number] Email: [email or web address] I have personally seen and examined the patient, reviewed the documentation and agree with the assessment and plan as written. Number of minutes spent on the visit: 20. Vicente Hyde MD
--- NOTE | 2023-02-02 17:06 | P.PN ---
Subjective Progress Note Date: 02/02/23 Hospital course: Patient is a very pleasant 82-year-old female with a past medical history of atrial fibrillation on anticoagulation with Eliquis, CVA on Plavix, hypertension, and hyperlipidemia. She presented to the emergency department with a chief complaint of suprapubic abdominal pain/discomfort. Patient reports this pain began on Monday01/27/23 and initially felt similar to previous UTI and was diagnosed with a urinary tract infection and started on nitrofurantoin 100 mg every 12 hours. Patient states despite taking this medication as prescribed, over the past 3 days this suprapubic pain significantly worsened and she noticed increasing blood in her urine and decreased urinary output. Patient denies having any fevers, chills, dysuria, or urinary frequency. Patient denies having any changes in her medications stating she has been on both Eliquis and Plavix for years. Patient underwent full evaluation in the emergency department. Labs completed and reviewed. CBC was unremarkable. Coagulation profile showing elevated PT of 12.4 and slightly elevated INR 1.2. CMP unremarkable with the exception of mild prerenal azotemia with BUN of 25. Urinalysis was a con taminated specimen reported as bloody appearance with greater than 182 RBCs, 181 WBCs, and 12, squamous epithelial cells. CT Urogram was completed revealing a large irregular mass in the posterior urinary bladder consistent with blood clot with no evidence of renal mass or obstruction. Patient was admitted under our services with consultation to urology. Physical exam: Vital signs reviewed and stable. General: Nontoxic, no distress and appears stated age. Derm: Skin warm and dry, normal coloration for ethnicity. Head: Atraumatic, normocephalic and symmetric. Eyes: EOMs intact, no lid lag, and anicteric sclera Mouth: no lip lesions, mucus membranes moist Cardiovascular: regular rate and rhythm with normal S1S2, no murmur, positive posterior tibial pulses bilaterally, and cap refill < 2 seconds. Lungs: Respirations even, regular, and unlabored on room air. Lungs CTA bilaterally, no rhonchi, no rales, no wheezing, and no accessory muscle usage. GI/ soft, mild suprapubic tenderness/pain upon palpation, no guarding, no appreciable organomegaly. Gutierrez catheter in place to dependent drainage with dark red bloody urine with clots in tubing and collection bag. Ext: ROM intact. No gross muscle atrophy, no edema, no contractures Neuro: Speech clear, face symmetrical and CN II-XII grossly intact with no noted focal neuro deficits Psych: Alert and oriented to person, place, time, and situation. Appropriate and pleasant affect. Assessment and Plan of Care: Acute cystitis Gross hematuria -Labs completed and reviewed. CBC showing mild normocytic anemia with hemoglobin of 11.5. BMP unremarkable. -Initial Urinalysis was a contaminated specimen reported as bloody appearance with greater than 182 RBCs, 181 WBCs, and 12, squamous epithelial cells. Repeat urinalysis was completed negative for infection positive for blood with greater than 182 RBCs and negative for infection with only 4 WBCs. Urine culture pending. -Patient started on Rocephin 1 g every 24 hours for suspected UTI. -CT Urogram was completed and radiology report reviewed revealing a large irregular mass in the posterior urinary bladder consistent with blood clot with no evidence of renal mass or obstruction. -Neurology following, Discussed plan of care with urology FILAMENT SHAPER in detail and they are clamping CBI and will reassess hematuria and provide further recommendations pending these findings. -Eliquis and Plavix held at this time. Paroxysmal Atrial fibrillation History of CVA, no reported deficits Hypertension Hyperlipidemia -At this time we will hold Eliquis and Plavix pending clearance from urology to resume. -Patient to continue daily medication regimen with amlodipine 5 mg daily, lis inopril 20 mg nightly, and pravastatin 80 mg nightly. The patient is admitted with an anticipated greater than 2 midnight stay for evaluation of acute cystitis with gross hematuria. CODE STATUS: Full code DVT prophylaxis: SCDs Discussed with: Patient, RN, and urology FILAMENT SHAPER Anticipated discharge date: Clinical course to determine Anticipated discharge place: Home Patient was seen independently by Nurse Practitioner. This document was prepared using [employer] dictation software. Please allow for errors in automatic blocker while rare they do occur. Objective - Vital Signs Vital signs: Vital Signs Temp 97.1 F L 02/02/23 02:17 Pulse 64 02/02/23 02:17 Resp 18 02/02/23 02:17 BP 128/67 02/02/23 02:17 Pulse Ox 98 02/02/23 02:17 FiO2 Intake & Output 02/01/23 02/02/23 02/02/23 18:59 06:59 18:59 Intake Total 118 Output Total 5740 1950 Balance -5621 Weight 70.76 kg Intake: Oral 118 Output: Other 5739 1949 Other: Voiding Method Indwelling Catheter Indwelling Catheter - Labs CBC & Chem 7: 02/02/23 04:55 02/02/23 04:55 Labs: Abnormal Lab Results - Last 24 Hours (Table) 02/01/23 02/02/23 Range/Units 14:15 04:55 RBC 3.84 L (4.10-5.20) X 10*6/uL Hgb 11.5 L (12.0-15.0) g/dL Hct 35.6 L (37.2-46.3) % Urine Appearance Turbid H (Clear) Urine Protein 1+ H (Negative) Urine Blood Large H (Negative) Ur Leukocyte Esterase Small H (Negative) Urine RBC >182 H (0-5) /hpf Microbiology - Last 24 Hours (Table) 02/01/23 14:15 Urine Culture - Preliminary Urine,Catheterized
[2023-02-02] MEDS: lisinopriL 20 MG TAB PO SCH (20:31)
[2023-02-02] MEDS: SERTRALINE 50 MG TAB PO SCH (20:31)
[2023-02-02] MEDS: PRAVASTATIN SODIUM 80 MG TAB PO SCH (20:31)
[2023-02-03] MEDS: SODIUM CHLORIDE 0.9% IRRIG 3,000 ML BAG IRRIGATION SCH ×8 (00:57→08:02)
[2023-02-03] MEDS: amLODIPine 5 MG TAB PO SCH (07:56)
--- NOTE | 2023-02-03 09:34 | P.PN ---
Subjective Progress Note Date: 02/03/23 Principal diagnosis: Hematuria The patient is an 82-year-old female with a past medical history of HTN, A fib (on Eliquis), CVA (on Plavix), GERD and OA. She presented to the emergency department on 02/01/23 with suprapubic and abdominal pain, and hematuria for 3 days. Work up in the ED included a UA that is suggestive of a UTI. Lab work: no leukocytosis, serum creatinine 0.80. She underwent a CT urogram which showed no adrenal mass. Kidneys of normal size and contour. No hydronephrosis or hydroureter. A large irregular mass in the posterior urinary bladder is consistent with blood clots. No evidence of renal mass or obstruction. A three way Santamaria catheter was placed and CBI was initiated. 02/01 The patient denies any history of kidney stones or cancer. She reports having had a bladder suspension. The patient is on Eliquis for A fib and Plavix to lower her risk of recurrent stroke. She reports being on these medications for several years. She did have one episode of hematuria approximately two years ago which resolved spontaneously. Her Santamaria catheter was irrigated with a Johann syringe at the bedside today with large pieces of clot returned. Patient tolerated well. Hematuria likely a result of cystitis and anticoagulation. Patient may need cytoscopy which may be done as outpatient procedure. 02/02 The patient is resting in bed. She stated her suprapubic pain has improved significantly. Her Santamaria catheter with CBI is draining light pink urine, no clots noted. Hgb 11.5 today. Urine culture pending. CBI clamped at 1100 today to assess further hematuria. Hematuria likely a result of cycstitis from UTI and anticoagulation. Patient may need cytoscopy which may be done as outpatient procedure. 1300 Patient's urine in santamaria is light pink. When irrigated it immediatley clears up. RN instructed to leave CBI off and watch output. May irrigate prn. 2114 Urine remains light pink in color with CBI off. Objective - Vital Signs Vital signs: Vital Signs Temp 97.9 F 02/03/23 02:00 Pulse 62 02/03/23 02:00 Resp 14 02/03/23 02:00 BP 109/56 02/03/23 02:00 Pulse Ox 97 02/03/23 02:00 FiO2 Intake & Output 02/02/23 02/03/23 02/03/23 18:59 06:59 18:59 Intake Total 118 Output Total 2500 340 Balance -2382 -340 Intake: Oral 118 Output: Urine 2500 340 Other: Voiding Method Indwelling Catheter Indwelling Catheter - Exam General: Well developed, well nourished. No acute distress. HEENT: Head is atraumatic, normocephalic. Lungs: Respirations even and nonlabored. On RA Abdomen/GI: Soft, non-distended. No guarding, rigidity, or abdominal tenderness. : + suprapubic tenderness - improved. Three way Santamaria catheter with CBI draining light pink Skin: Warm and dry Neurologic: Alert and oriented 3, CN II-XII grossly intact. No focal deficits. Psychiatric: Appropriate mood and affect. - Labs CBC & Chem 7: 02/02/23 04:55 02/02/23 04:55 Labs: Abnormal Lab Results - Last 24 Hours (Table) 02/02/23 Range/Units 04:55 Anion Gap 8.80 L (10.00-18.00) mmol/L Est GFR (CKD-EPI)NonAf 52.4 L (60.0-200.0) BUN/Creatinine Ratio 23.80 H (12.00-20.00) Ratio Microbiology - Last 24 Hours (Table) 02/01/23 14:15 Urine Culture - Final Urine,Catheterized Assessment and Plan Assessment: The patient is eating breakfast. She stated her suprapubic pain has improved significantly. Her Santamaria catheter is draining light pink urine with the CBI off, and will be removed this morning. Urine culture negative. The patient may be discharged today from a urological standpoint if she is able to urinate without difficulty. (1) Hematuria Current Visit: Yes Status: Acute Code(s): R31.9 - HEMATURIA, UNSPECIFIED SNOMED Code(s): 39968236 Plan: - Remove Santamaria catheter this morning - Check PVR - Patient may be discharged home from a urological standpoint - Follow up with Dr. Hyde in our office for cystoscopy to rule out intravesical pathology Thank you for this consultation Impression and plan of care have been directed as dictated by the signing ph ysician. Liz Lombardi nurse practitioner acting as scribe for signing physician. Liz Lombardi [facility] Palliative Care/Urology Spectralink [phone] Email: [email or web address] I have personally seen and examined the patient, reviewed the documentation and agree with the assessment and plan as written. Number of minutes spent on the visit: 20. Vicente Hyde MD
--- NOTE | 2023-02-03 14:53 | P.PN ---
Subjective Progress Note Date: 02/03/23 Hospital course: Patient is a very pleasant 82-year-old female with a past medical history of atrial fibrillation on anticoagulation with Eliquis, CVA on Plavix, h ypertension, and hyperlipidemia. She presented to the emergency department with a chief complaint of suprapubic abdominal pain/discomfort. Patient reports this pain began on Monday01/27/23 and initially felt similar to previous UTI and was diagnosed with a urinary tract infection and started on nitrofurantoin 100 mg every 12 hours. Patient states despite taking this medication as prescribed, o shruthi the past 3 days this suprapubic pain significantly worsened and she noticed increasing blood in her urine and decreased urinary output. Patient denies having any fevers, chills, dysuria, or urinary frequency. Patient denies having any changes in her medications stating she has been on both Eliquis and Plavix for years. Patient underwent full evaluation in the emergency department. Labs completed and reviewed. CBC was unremarkable. Coagulation profile showing elevated PT of 12.4 and slightly elevated INR 1.2. CMP unremarkable with the exception of mild prerenal azotemia with BUN of 25. Urinalysis was a contaminated specimen reported as bloody appearance with greater than 182 RBCs, 181 WBCs, and 12, squamous epithelial cells. CT Urogram was completed revealing a large irregular mass in the posterior urinary bladder consistent with blood clot with no evidence of renal mass or obstruction. Patient was admitted under our services with consultation to urology. Physical exam: Vital signs reviewed and stable. General: Nontoxic, no distress and appears stated age. Derm: Skin warm and dry, normal coloration for ethnicity. Head: Atraumatic, normocephalic and symmetric. Eyes: EOMs intact, no lid lag, and anicteric sclera Mouth: no lip lesions, mucus membranes moist Cardiovascular: regular rate and rhythm with normal S1S2, no murmur, positive posterior tibial pulses bilaterally, and cap refill < 2 seconds. Lungs: Respirations even, regular, and unlabored on room air. Lungs CTA bilaterally, no rhonchi, no rales, no wheezing, and no accessory muscle usage. GI/ soft, mild suprapubic tenderness/pain upon palpation, no guarding, no appreciable organomegaly. Gutierrez catheter in place to dependent drainage with dark red bloody urine with clots in tubing and collection bag. Ext: ROM intact. No gross muscle atrophy, no edema, no contractures Neuro: Speech clear, face symmetrical and CN II-XII grossly intact with no noted focal neuro deficits Psych: Alert and oriented to person, place, time, and situation. Appropriate and pleasant affect. Assessment and Plan of Care: Acute cystitis Gross hematuria -Labs completed and reviewed. CBC showing mild normocytic anemia with hemoglo bin of 11.5. BMP unremarkable. -Initial Urinalysis was a contaminated specimen reported as bloody appearance with greater than 182 RBCs, 181 WBCs, and 12, squamous epithelial cells. Repeat urinalysis was completed negative for infection positive for blood with greater than 182 RBCs and negative for infection with only 4 WBCs. Urine culture pending. -At this time patient to continue Rocephin 1 g every 24 hours for suspected UTI. -CT Urogram was completed and radiology report reviewed revealing a large irregular mass in the posterior urinary bladder consistent with blood clot with no evidence of renal mass or obstruction. -Patient was treated with CBI 2 days and anticoagulants held during this time. -Urology following, Discussed plan of care with urology [employer]CHANDISING [employer] LEAD in detail, Gutierrez catheter removed this morning. Patient to perform voiding trial and monitor for any signs of post-void residual and clear for discharge from their perspective tomorrow morning. -Eliquis to be resumed this evening and Plavix will be resumed tomorrow morning. We will monitor patient closely for any further episodes of bleeding. Paroxysmal Atrial fibrillation History of CVA, no reported deficits Hypertension Hyperlipidemia -Patient to continue daily medication regimen with amlodipine 5 mg daily, lisinopril 20 mg nightly, and pravastatin 80 mg nightly.Eliquis to be resumed this evening and Plavix will be resumed tomorrow morning. We will monitor patient closely for any further episodes of bleeding. CODE STATUS: Full code DVT prophylaxis: SCDs Discussed with: Patient, RN, and urology [employer]ISING TE[employer] LEAD Anticipated discharge date: Clinical course to determine Anticipated discharge place: Home Patient was seen independently by Nurse Practitioner. This document was prepared using [employer] dictation software. Please allow for errors in club room attendant while rare they do occur. Objective - Vital Signs Vital signs: Vital Signs Temp 97.9 F 02/03/23 02:00 Pulse 62 02/03/23 02:00 Resp 14 02/03/23 02:00 BP 109/56 02/03/23 02:00 Pulse Ox 97 02/03/23 02:00 FiO2 Intake & Output 02/02/23 02/03/23 02/03/23 18:59 06:59 18:59 Intake Total 118 Output Total 2500 340 Balance -2382 -340 Intake: Oral 118 Output: Urine 2500 340 Other: Voiding Method Indwelling Catheter Indwelling Catheter - Labs CBC & Chem 7: 02/02/23 04:55 02/02/23 04:55 Labs: Abnormal Lab Results - Last 24 Hours (Table) 02/02/23 Range/Units 04:55 Anion Gap 8.80 L (10.00-18.00) mmol/L Est GFR (CKD-EPI)NonAf 52.4 L (60.0-200.0) BUN/Creatinine Ratio 23.80 H (12.00-20.00) Ratio Microbiology - Last 24 Hours (Table) 02/01/23 14:15 Urine Culture - Final Urine,Catheterized
[2023-02-03] MEDS: PRAVASTATIN SODIUM 80 MG TAB PO SCH (21:17)
[2023-02-03] MEDS: APIXABAN 5 MG TAB PO SCH (21:17)
[2023-02-03] MEDS: lisinopriL 20 MG TAB PO SCH (21:17)
[2023-02-03] MEDS: SERTRALINE 50 MG TAB PO SCH (21:17)
[2023-02-04 07:26] VITALS: RESP 18
[2023-02-04] MEDS: amLODIPine 5 MG TAB PO SCH (08:00)
[2023-02-04] MEDS: APIXABAN 5 MG TAB PO SCH (08:00)
[2023-02-04] MEDS ORDERED: CLOPIDOGREL 75 MG TAB PO SCH (09:00)
[2023-02-04 09:23] LABS: HCT 35.1 % (37.2-46.3); HGB 11.2 g/dL (12.0-15.0); MCH 29.4 pg (27.0-32.0); MCHC 31.9 g/dL (32.0-37.0); MCV 92.1 fL (80.0-97.0); Mean Platelet Volume 10.8 fL (9.5-12.2); NRBC Per 100 WBC 0 /100 WBCS (0.0-0.0); Platelet Count 200 X 10*3/uL (140-440); RBC 3.81 X 10*6/uL (4.10-5.20); RDW 13.9 % (11.5-14.5); WBC 6.85 X 10*3/uL (4.50-10.00)
[2023-02-04 09:56] LABS: African American GFR (CKD) 66.9 (60.0-200.0); Anion Gap 8.3 mmol/L (10.00-18.00); BUN/Creat Ratio 31.85 Ratio (12.00-20.00); Blood Urea Nitrogen 29.4 mg/dL (9.0-27.0); Carbon Dioxide 26.4 mmol/L (20.0-27.5); Non-African American GFR(CKD) 57.8 (60.0-200.0); Potassium 4.8 mmol/L (3.5-5.5)
[2023-02-04 13:42] VITALS: BP 160/71; PULSE 96; TEMP 98
--- NOTE | 2023-02-04 18:12 | P.DS ---
Providers Date of admission: 02/01/23 12:50 Expected date of discharge: 02/04/23 Attending physician: Marie Vicente MD Consults: 02/01/23 04:45 Consult Physician Routine Consulting Provider: Vicente Hyde Consult Reason/Comments: Painful hematuria Do you want consulting provider notified?: Already Contacted Primary care physician: Demetrius Bales MD Hospital Course: Discharge Diagnosis: Gross hematuria. Patient presented to the ER on 02/01/[address] Urogram was completed revealing a large irregular mass in the posterior urinary bladder consistent with blood clot with no evidence of renal mass or obstruction. Patient was admitted under our services with consultation to urology. Patient was treated with CBI 2 days and anticoagulant and Plavix were held during this time. Once bladder irrigation was completed, Gutiererz catheter was removed and patient been urinating without any difficulties initially pink patient returning to normal straw-colored urine. Patient resumed Eliquis and Plavix and was again monitored overnight and had no further reoccurrence of bleeding noted. Patient medically stable at this time. Hemoglobin stable at 11.2. Patient medically stable for discharge and to follow up outpatient with PCP in 2 days and urology in 2 weeks for cystoscopy. Acute cystitis, ruled out. Initial urinalysis was contaminated but concerning for infection. Repeat urinalysis completed positive for blood and greater than 182 RBCs but negative for infection showing only 4 WBCs. Urine culture also negative ruling out acute cystitis. Paroxysmal Atrial fibrillation. Patient to continue daily medication regimen Eliquis 5 mg twice a day. History of CVA, no reported deficits. Patient to remain on Plavix 75 mg daily. Hypertension. Vital signs stable throughout hospitalization with current antihypertensive medication regimen with amlodipine 5 mg daily and lisinopril 20 mg nightly. Hospital Course: Patient is a very pleasant 82-year-old female with a past medical history of atrial fibrillation on anticoagulation with Eliquis, CVA on Plavix, hypertensio n, and hyperlipidemia. She presented to the emergency department with a chief complaint of suprapubic abdominal pain/discomfort. Patient reports this pain began on Monday01/27/23 and initially felt similar to previous UTI and was diagnosed with a urinary tract infection and started on nitrofurantoin 100 mg every 12 hours. Patient states despite taking this medication as prescribed, over the past 3 days this suprapubic pain significantly worsened and she noticed increasing blood in her urine and decreased urinary output. Patient denies having any fevers, chills, dysuria, or urinary frequency. Patient denies having any changes in her medications stating she has been on both Eliquis and Plavix for years. Patient underwent full evaluation in the emergency department. Labs completed and reviewed. CBC was unremarkable. Coagulation profile showing elevated PT of 12.4 and slightly elevated INR 1.2. CMP unremarkable with the exception of mild prerenal azotemia with BUN of 25. Urinalysis was a contaminated specimen reported as bloody appearance with greater than 182 RBCs, 181 WBCs, and 12, squamous epithelial cells. CT Urogram was completed revealing a large irregular mass in the posterior urinary bladder consistent with blood clot with no evidence of renal mass or obstruction. Patient was admitted under our services with consultation to urology.Patient was treated with CBI 2 days and anticoagulants held during this time. Gutierrez catheter was removed and patient been urinating without any difficulties. Patient resumed Eliquis and Plavix and had no further reoccurrence of bleeding noted. Patient medically stable at this time. Hemoglobin stable at 11.2. Patient medically stable for discharge and to follow up outpatient with PCP in 2 days and urology in 2 weeks. Physical exam: Vital signs reviewed and stable. General: Nontoxic, no distress and appears stated age. Derm: Skin warm and dry, normal coloration for ethnicity. Head: Atraumatic, normocephalic and symmetric. Eyes: EOMs intact, no lid lag, and anicteric sclera Mouth: no lip lesions, mucus membranes moist Cardiovascular: regular rate and rhythm with normal S1S2, no murmur, positive posterior tibial pulses bilaterally, and cap refill < 2 seconds. Lungs: Respirations even, regular, and unlabored on room air. Lungs CTA bilaterally, no rhonchi, no rales, no wheezing, and no accessory muscle usage. GI/ soft, denied pain upon palpation, no guarding, no appreciable organomegaly. Ext: ROM intact. No gross muscle atrophy, no edema, no contractures Neuro: Speech clear, face symmetrical and CN II-XII grossly intact with no noted focal neuro deficits Psych: Alert and oriented to person, place, time, and situation. Appropriate and pleasant affect. A total of 31 minutes of time were spent preparing this complex discharge summary. Pt was discharged on 02/05/20 01/29/1950 9 AM Patient was seen independently by Nurse Practitioner. This document was prepared using [employer] dictation software. Please allow for errors in associate manager affiliate marketing while rare they do occur. I reviewed the documentation as provided by the CHACE above, who is the original author of this note. I agree with the documented assessment and plan, with the following changes: none Patient Condition at Discharge: Stable Plan - Discharge Summary Discharge Rx Participant: Yes New Discharge Prescriptions: Continue Cholecalciferol [Vitamin D3 (25 Mcg = 1000 Iu)] 50 mcg PO DAILY Clopidogrel Bisulfate [Plavix] 75 mg PO DAILY Benazepril HCl 20 mg PO HS amLODIPine [Norvasc] 5 mg PO DAILY Sertraline HCl [Zoloft] 50 mg PO HS Apixaban [Eliquis] 5 mg PO BID Pravastatin Sodium [Pravachol] 80 mg PO HS Discharge Medication List Cholecalciferol [Vitamin D3 (25 Mcg = 1000 Iu)] 50 mcg PO DAILY 12/05/16 [History] Clopidogrel Bisulfate [Plavix] 75 mg PO DAILY 12/05/16 [History] Benazepril HCl 20 mg PO HS 05/01/17 [History] Apixaban [Eliquis] 5 mg PO BID 08/03/19 [History] Sertraline HCl [Zoloft] 50 mg PO HS 08/03/19 [History] amLODIPine [Norvasc] 5 mg PO DAILY 08/03/19 [History] Pravastatin Sodium [Pravachol] 80 mg PO HS 02/01/23 [History] Follow up Appointment(s)/Referral(s): Vicente Hyde MD [STAFF PHYSICIAN] - 2 Weeks Demetrius Bales MD [Primary Care Provider] - 1-2 days Patient Instructions/Handouts: Hematuria (GEN) Activity/Diet/Wound Care/Special Instructions: Activity: As tolerated. Take breaks as needed. Diet: Heart healthy and carb consistent diet. Avoid salts, or foods with hidden salts such as canned or boxed foods and frozen dinners. Extra salt makes your heart work harder and traps the fluid in your body for longer. Special Instructions: Take all of your medications as directed and remember to keep all of your doctor's appointments and follow-up as needed. Follow-up with Dr. Hyde in 2 weeks for a cystoscopy in the office. Thank you for allowing us to participate in your care, it was truly a pleasure having you for our patient!!! Discharge Disposition: HOME SELF-CARE
== END 2023-02-04 13:40 | disposition home or self-care (01) | DRG 696 ==
LOC: EC 02:32 → 6NMEDSUR 04:46 → OBSVTOIN 12:50
PROVIDERS: ADMIT Internal Medicine; ATTEND Internal Medicine
PROC: 3E1K78Z Irrigation of Genitourinary Tract using Irrigating Substance, Via Natural or Artificial Opening (ICD-10-PCS; principal; 2023-02-01)
DX: R31.0 Gross hematuria (principal); D68.32 Hemorrhagic disorder due to extrinsic circulating anticoagulants; I48.0 Paroxysmal atrial fibrillation; T45.525A Adverse effect of antithrombotic drugs, initial encounter; T45.515A Adverse effect of anticoagulants, initial encounter; D50.0 Iron deficiency anemia secondary to blood loss (chronic); I10 Essential (primary) hypertension; E78.5 Hyperlipidemia, unspecified; J30.2 Other seasonal allergic rhinitis; K21.9 Gastro-esophageal reflux disease without esophagitis; K44.9 Diaphragmatic hernia without obstruction or gangrene; K57.90 Diverticulosis of intestine, part unspecified, without perforation or abscess without bleeding; M19.90 Unspecified osteoarthritis, unspecified site; I83.90 Asymptomatic varicose veins of unspecified lower extremity; Z87.440 Personal history of urinary (tract) infections; Z79.01 Long term (current) use of anticoagulants; Z79.02 Long term (current) use of antithrombotics/antiplatelets; Z79.899 Other long term (current) drug therapy; Z86.73 Personal history of transient ischemic attack (TIA), and cerebral infarction without residual deficits; Y92.002 Bathroom of unspecified non-institutional (private) residence as the place of occurrence of the external cause
CPT/HCPCS: 51702; 74178; 74400; 80048; 80053; 81001; 83690; 83735; 85025; 85027; 85610; 85730; 87086; 99285

== ENCOUNTER → 2023-03-09 | Outpatient (CLI) | payer MEDICARE, BC ==
[2023-03-10 01:52] LABS: HCT 38.5 % (37.2-46.3); HGB 12.2 g/dL (12.0-15.0); MCH 29.3 pg (27.0-32.0); MCHC 31.7 g/dL (32.0-37.0); MCV 92.5 fL (80.0-97.0); Mean Platelet Volume 10.9 fL (9.5-12.2); NRBC Per 100 WBC 0 /100 WBCS (0.0-0.0); Platelet Count 250 X 10*3/uL (140-440); RBC 4.16 X 10*6/uL (4.10-5.20); RDW 13.5 % (11.5-14.5); WBC 5.23 X 10*3/uL (4.50-10.00)
[2023-03-10 02:05] LABS: African American GFR (CKD) 60.8 (60.0-200.0); Anion Gap 7.7 mmol/L (10.00-18.00); BUN/Creat Ratio 25.5 Ratio (12.00-20.00); Blood Urea Nitrogen 25.5 mg/dL (9.0-27.0); Calcium 10.4 mg/dL (8.7-10.3); Carbon Dioxide 26.3 mmol/L (20.0-27.5); Non-African American GFR(CKD) 52.4 (60.0-200.0); Potassium 4.7 mmol/L (3.5-5.5)
== END | disposition home or self-care (01) ==
LOC: LABPAT 13:53
PROVIDERS: ATTEND Urology
DX: Z01.812 Encounter for preprocedural laboratory examination (principal); D49.4 Neoplasm of unspecified behavior of bladder
CPT/HCPCS: 80048; 85027

== ENCOUNTER → 2023-06-20 | Outpatient (CLI) | payer MEDICARE, BC | LOC: CPPFTMAIN 15:11 | PROVIDERS: ATTEND Family Medicine | DX: R06.02 Shortness of breath (principal) | CPT/HCPCS: 94060; 94726; 94729 ==

== ENCOUNTER 2023-07-26 00:18 | Inpatient (IN) | payer MEDICARE, BC ==
[2023-07-26] MEDS ORDERED: SODIUM CHLORIDE 0.9% 500 ML 500 ML IV STA (00:26)
--- NOTE | 2023-07-26 00:28 | ED ---
General Adult HPI - General Stated complaint: Fall Time Seen by Provider: 07/26/23 00:26 Source: EMS Mode of arrival: EMS - History of Present Illness Initial comments: Dictation was produced using [employer] dictation software. please excuse any grammatical, word or spelling errors. Chief Complaint: 83-year-old female presents after fall History of Present Illness: Patient is an 83-year-old female she presents via EMS after fall. Patient fell from a step. She was walking out late at night to put something in her mailbox when she misstepped fell sideways landing on her left hip. She states she did hit her head on the left temporal area. Denies any headache. No neck pain. Patient with a left hip pain. Take coagulation medications for A. fib. The ROS documented in this emergency department record has been reviewed and confirmed by me. Those systems with pertinent positive or negative responses have been documented in the HPI. All other systems are other negative and/or noncontributory. - Related Data Home Medications Medication Instructions Recorded Confirmed Cholecalciferol [Vitamin D3 (25 50 mcg PO DAILY 12/05/16 03/16/23 Mcg = 1000 Iu)] Clopidogrel Bisulfate [Plavix] 75 mg PO DAILY 12/05/16 03/16/23 Benazepril HCl 20 mg PO HS 05/01/17 03/16/23 Apixaban [Eliquis] 5 mg PO BID 08/03/19 03/16/23 Sertraline HCl [Zoloft] 50 mg PO HS 08/03/19 03/16/23 amLODIPine [Norvasc] 5 mg PO DAILY 08/03/19 03/16/23 Pravastatin Sodium [Pravachol] 80 mg PO HS 02/01/23 03/16/23 Omeprazole [PriLOSEC] 20 mg PO DAILY PRN 03/14/23 03/16/23 Allergies Allergy/AdvReac Type Severity Reaction Status Date / Time No Known Allergies Allergy Verified 03/16/23 08:05 Review of Systems ROS Statement: Those systems with pertinent positive or pertinent negative responses have been documented in the HPI. ROS Other: All systems not noted in ROS Statement are negative. Past Medical History Past Medical History: Atrial Fibrillation, Chest Pain / Angina, CVA/TIA, GERD/Re flux, Hyperlipidemia, Hypertension, Osteoarthritis (OA) Additional Past Medical History / Comment(s): past migraines, tia 2006-no residual effects, a-fib for last few years per pt, varicose veins, seasonal allergies/sinus problems, hiatal hernia, recent adm to [facility] w/hematuria History of Any Multi-Drug Resistant Organisms: None Reported Past Surgical History: Bladder Surgery, Cholecystectomy, Heart Catheterization, Hysterectomy, Tonsillectomy Additional Past Surgical History / Comment(s): cataracts, egd/colonoscopy, bladder suspension Past Anesthesia/Blood Transfusion Reactions: No Reported Reaction, Family History of Problems w/ Anesthesia Additional Past Anesthesia/Blood Transfusion Reaction / Comment(s): sister had knee surg., trouble waking up, ended up having stroke Smoking Status: Never smoker - Past Family History Father Family Medical History: Coronary Artery Disease (CAD) Additional Family Medical History / Comment(s): heart problems Mother Additional Family Medical History / Comment(s): "blood disorder"too many wbc's, but not leukemia" General Exam - General Exam Comments Initial Comments: PHYSICAL EXAM: General Impression: Alert and oriented x3, not in acute distress HEENT: Normocephalic atraumatic, extra-ocular movements intact, pupils equal and reactive to light bilaterally, mucous membranes moist. Cardiovascular: Heart regular rate and rhythm Chest: Able to complete full sentences, no retractions, no tachypnea Abdomen: abdomen soft, non-tender, non-distended, no organomegaly Musculoskeletal: Pulses present and equal in all extremities, no peripheral edema, gross left hip deformity Motor: no focal deficits noted Neurological: CN II-XII grossly intact, no focal motor or sensory deficits noted Skin: Intact with no visualized rashes Psych: Normal affect and mood Course Vital Signs 07/26/23 07/26/23 07/26/23 00:21 00:35 00:38 Temperature 96.1 F L 96.1 F L Pulse Rate 96 75 Respiratory 18 18 Rate Blood Pressure 90/64 90/64 O2 Sat by Pulse 99 99 97 Oximetry 07/26/23 07/26/23 07/26/23 00:40 01:00 01:10 Temperature 96.1 F L Pulse Rate 74 84 Respiratory 18 18 Rate Blood Pressure 139/78 135/65 87/74 O2 Sat by Pulse 98 99 Oximetry 07/26/23 07/26/23 07/26/23 01:20 01:30 01:40 Temperature Pulse Rate 74 109 H 86 Respiratory 8 L 12 14 Rate Blood Pressure 124/71 124/71 94/59 O2 Sat by Pulse 98 98 97 Oximetry 07/26/23 07/26/23 07/26/23 01:50 02:00 02:15 Temperature Pulse Rate 65 84 Respiratory 6 L 9 L Rate Blood Pressure 110/64 110/64 O2 Sat by Pulse 98 95 Oximetry 07/26/23 02:30 Temperature Pulse Rate 84 Respiratory 10 L Rate Blood Pressure 120/66 O2 Sat by Pulse 95 Oximetry EKG Findings - EKG Comments: EKG Findings:: My EKG interpretation: Ventricular rate 81, sinus rhythm,. Interval to 47, QRS 86, QTC 408. No AR prolongation, no QTC prolongation, no ST or T-wave changes noted. Overall, this EKG is unremarkable Medical Decision Making - Medical Decision Making Was pt. sent in by a medical professional or institution (Dr. PA, MANAGER PROGRESSIVE CARE, urgent care, hospital, or detention...) When possible be specific @ -No Did you speak to anyone other than the patient for history (EMS, parent, family, police, friend...)? What history was obtained from this source @ -No Did you review nursing and triage notes (agree or disagree)? Why? @ -I reviewed and agree with nursing and triage notes Were old charts reviewed (outside hosp., previous admission, EMS record, old EKG, old radiological studies, urgent care reports/EKG's, detention records)? Report findings @ -No old charts were reviewed Differential Diagnosis (chest pain, altered mental status, abdominal pain women, abdominal pain men, vaginal bleeding, musculoskeletal, weakness, fever, dyspnea, syncope, headache, dizziness, GI bleed, back pain, seizure, CVA, palpatations, mental health)? @ -not applicable EKG interpreted by me (3pts min.). @ -See above X-rays interpreted by me (1pt min.). @ -. Pelvis x-ray shows pelvis fracture, chest x-ray is unremarkable CT interpreted by me (1pt min.). @ -Given the head and C-spine is unremarkable. Pelvis CT shows superior inferior pubic rami fractures on the left along with sacral fracture. Chest CT suspicious for left fourth throat fracture U/S interpreted by me (1pt. min.). @ -None done What testing was considered but not performed or refused? (CT, X-rays, U/S, labs)? Why? @ -None What meds were considered but not given or refused? Why? @ -None Did you discuss the management of the patient with other professionals (prof alvarado i.e. , PA, MANAGER PROGRESSIVE CARE, lab, RT, psych nurse, geriatric social worker, instructor flying, teacher, traffic control officer, case briefer)? Give summary @ -Discussed with the branch orthopedic surgery who will accept admission to orthopedic team Was smoking cessation discussed for >3mins.? @ -No Was critical care preformed (if so, how long)? @ -No Were there social determinants of health that impacted care today? How? (Homelessness, low income, unemployed, alcoholism, drug addiction, transportation, low edu. Level, literacy, decrease access to med. care, detention, rehab)? @ -No Was there de-escalation of care discussed even if they declined (Discuss DNR or withdrawal of care, Hospice)? DNR status @ -No What co-morbidities impacted this encounter? (DM, HTN, Smoking, COPD, CAD, Cancer, CVA, ARF, Chemo, Hep., AIDS, mental health diagnosis, sleep apnea, morbid obesity)? @ -None Was patient admitted / discharged? Hospital course, mention meds given and route, prescriptions, significant lab abnormalities, going to OR and other pertinent info. @ -83 y Old female presents emergency department after fall. All signs stable. Patient suffered pelvic fracture. Laboratory evaluation is unremarkable. Troponin is negative. At approximately 2:30 AM patient was complaining of symptoms of indigestion. Her clinical presentation was atypical chest pain with typical features. Repeat EKG is unremarkable. Patient had normal troponin. @ -No Drug Therapy requiring intensive monitoring for toxicity (Heparin, Nitro, Ins ulin, Cardizem)? @ -No Were any procedures done? @ -No Diagnosis/symptom? Acute, or Chronic, or Acute on Chronic? Uncomplicated (without systemic symptoms) or Complicated (systemic symptoms)? @ -Pelvic fracture Side effects of treatment? @ -No Exacerbation, Progression, or Severe Exacerbation? @ -No Poses a threat to life or bodily function? How? (Chest pain, USA, IA, pneumonia, PE, COPD, DKA, ARF, appy, cholecystitis, CVA, Diverticulitis, Homicidal, Suicidal, threat to staff... and all critical care pts) @ -yes - Lab Data Result diagrams: 07/26/23 00:31 07/26/23 00:31 Lab Results 07/26/23 07/26/23 07/26/23 Range/Units 00:31 00:31 00:31 WBC 10.6 (3.8-10.6) k/uL RBC 4.02 (3.80-5.40) m/uL Hgb 11.9 (11.4-16.0) gm/dL Hct 36.2 (34.0-46.0) % MCV 89.9 (80.0-100.0) fL MCH 29.5 (25.0-35.0) pg MCHC 32.8 (31.0-37.0) g/dL RDW 14.6 (11.5-15.5) % Plt Count 216 (150-450) k/uL MPV 8.5 Neutrophils % 75 % Lymphocytes % 18 % Monocytes % 4 % Eosinophils % 1 % Basophils % 0 % Neutrophils # 8.0 H (1.3-7.7) k/uL Lymphocytes # 1.9 (1.0-4.8) k/uL Monocytes # 0.5 (0-1.0) k/uL Eosinophils # 0.1 (0-0.7) k/uL Basophils # 0.1 (0-0.2) k/uL PT 12.8 H (9.0-12.0) sec INR 1.3 H (<1.2) APTT 22.9 (22.0-30.0) sec Sodium 137 (137-145) mmol/L Potassium 4.2 (3.5-5.1) mmol/L Chloride 104 (98-107) mmol/L Carbon Dioxide 23 (22-30) mmol/L Anion Gap 10 mmol/L BUN 27 H (7-17) mg/dL Creatinine 1.33 H (0.52-1.04) mg/dL Est GFR (CKD-EPI)AfAm 43 (>60 ml/min/1.73 sqM) Est GFR (CKD-EPI)NonAf 37 (>60 ml/min/1.73 sqM) Glucose 153 H (74-99) mg/dL Calcium 10.4 H (8.4-10.2) mg/dL Total Bilirubin 0.5 (0.2-1.3) mg/dL AST 30 (14-36) U/L ALT 21 (4-34) U/L Alkaline Phosphatase 100 (38-126) U/L Troponin I (0.000-0.034) ng/mL Total Protein 6.9 (6.3-8.2) g/dL Albumin 3.7 (3.5-5.0) g/dL Serum Alcohol <10 mg/dL Blood Type Blood Type Recheck Bld Type Recheck Status Antibody Screen Spec Expiration Date 07/26/23 07/26/23 Range/Units 00:31 00:31 WBC (3.8-10.6) k/uL RBC (3.80-5.40) m/uL Hgb (11.4-16.0) gm/dL Hct (34.0-46.0) % MCV (80.0-100.0) fL MCH (25.0-35.0) pg MCHC (31.0-37.0) g/dL RDW (11.5-15.5) % Plt Count (150-450) k/uL MPV Neutrophils % % Lymphocytes % % Monocytes % % Eosinophils % % Basophils % % Neutrophils # (1.3-7.7) k/uL Lymphocytes # (1.0-4.8) k/uL Monocytes # (0-1.0) k/uL Eosinophils # (0-0.7) k/uL Basophils # (0-0.2) k/uL PT (9.0-12.0) sec INR (<1.2) APTT (22.0-30.0) sec Sodium (137-145) mmol/L Potassium (3.5-5.1) mmol/L Chloride (98-107) mmol/L Carbon Dioxide (22-30) mmol/L Anion Gap mmol/L BUN (7-17) mg/dL Creatinine (0.52-1.04) mg/dL Est GFR (CKD-EPI)AfAm (>60 ml/min/1.73 sqM) Est GFR (CKD-EPI)NonAf (>60 ml/min/1.73 sqM) Glucose (74-99) mg/dL Calcium (8.4-10.2) mg/dL Total Bilirubin (0.2-1.3) mg/dL AST (14-36) U/L ALT (4-34) U/L Alkaline Phosphatase (38-126) U/L Troponin I <0.012 (0.000-0.034) ng/mL Total Protein (6.3-8.2) g/dL Albumin (3.5-5.0) g/dL Serum Alcohol mg/dL Blood Type A Positive Blood Type Recheck A Pos Bld Type Recheck Status No Antibody Screen NEGATIVE Spec Expiration Date 07/29/2023 - 2330 Disposition Clinical Impression: Pelvic fracture Disposition: ADMITTED IP TO THIS HOSP Condition: Fair Referrals: Demetrius Bales MD [Primary Care Provider] - 1-2 days Decision Time: 01:56
--- NOTE | 2023-07-26 00:48 | XR ---
EXAM: XR Chest, 1 View CLINICAL HISTORY: Trauma TECHNIQUE: Frontal view of the chest. COMPARISON: Portable chest single view dated 08/03/2019 FINDINGS: Limitations: Prominent obliquity and kyphosis. Lungs: Unremarkable. No consolidation. The pulmonary vasculature demonstrates no significant radiographic abnormality. Pleural space: Unremarkable. No pneumothorax. No large pleural effusion. Heart: The cardiac silhouette is thought to be stable, accounting for portable technique. Mediastinum: Evaluation of the mediastinal contours is limited by positioning. No obvious tracheal deviation. Bones/joints: No obvious acute osseous abnormality. IMPRESSION: Accounting for limitations with positioning, there is no radiographic evidence for significant acute traumatic injury to the chest/thorax.
--- NOTE | 2023-07-26 00:53 | XR ---
EXAM: XR Pelvis, 1 or 2 Views CLINICAL HISTORY: Trauma TECHNIQUE: Frontal view of the pelvis. COMPARISON: No relevant prior studies available. FINDINGS: Bones/joints: Displaced fractures involving the left superior and inferior pubic rami. Osteopenia. The right pelvic bones appear intact. The femoral heads overlie the acetabula bilaterally. No dislocation. Soft tissues: Unremarkable. IMPRESSION: Displaced fractures involving the left superior and inferior pubic rami.
[2023-07-26 01:07] LABS: Basophils # (A) 0.1 k/uL (0-0.2); Basophils % (A) 0 %; Eosinophils # (A) 0.1 k/uL (0-0.7); Eosinophils % (A) 1 %; HCT 36.2 % (34.0-46.0); HGB 11.9 gm/dL (11.4-16.0); Lymphocytes # (A) 1.9 k/uL (1.0-4.8); Lymphocytes % (A) 18 %; MCH 29.5 pg (25.0-35.0); MCHC 32.8 g/dL (31.0-37.0); MCV 89.9 fL (80.0-100.0); Mean Platelet Volume 8.5; Monocytes # (A) 0.5 k/uL (0-1.0); Monocytes % (A) 4 %; Neutrophils % (A) 75 %; Platelet Count 216 k/uL (150-450); RBC 4.02 m/uL (3.80-5.40); RDW 14.6 % (11.5-15.5); WBC 10.6 k/uL (3.8-10.6)
--- NOTE | 2023-07-26 01:11 | CT ---
EXAM: CT Head Without Intravenous Contrast CLINICAL HISTORY: Trauma TECHNIQUE: Axial computed tomography images of the head/brain without intravenous contrast. CTDI is 27.2 mGy and DLP is 685.45 mGy-cm. This CT exam was performed using one or more of the following dose reduction techniques: automated exposure control, adjustment of the mA and/or kV according to patient size, and/or use of iterative reconstruction technique. COMPARISON: No relevant prior studies available. FINDINGS: Brain: There are a few areas of decreased attenuation in the deep cerebral white matter consistent with mild small vessel ischemic/degenerative changes. The cerebral and cerebellar sulci are mildly prominent consistent with mild brain atrophy. No hemorrhage. Ventricles: Unremarkable. No ventriculomegaly. Bones/joints: Unremarkable. No acute fracture. Soft tissues: No significant overlying acute traumatic soft tissue abnormality identified. No radiopaque foreign body. Vasculature: Atherosclerotic disease. Sinuses: Unremarkable as visualized. No acute sinusitis. Mastoid air cells: Unremarkable as visualized. No mastoid effusion. IMPRESSION: No acute intracranial process identified. EXAM: CT Cervical Spine Without Intravenous Contrast CLINICAL HISTORY: Trauma TECHNIQUE: Axial computed tomography images of the cervical spine without intravenous contrast. CTDI is 27.2 mGy and DLP is 685.45 mGy-cm. This CT exam was performed using one or more of the following dose reduction techniques: automated exposure control, adjustment of the mA and/or kV according to patient size, and/or use of iterative reconstruction technique. COMPARISON: No relevant prior studies available. FINDINGS: Vertebrae: The vertebral bodies are intact without acute osseous traumatic injury. No anterolisthesis or retrolisthesis is identified. The facet joints are well aligned without subluxation or dislocation. The pedicles, transverse processes and spinous processes are intact. Facet hypertrophic changes noted at several levels bilaterally. Discs/spinal canal/neural foramina: Chronic disc marginal hypertrophic osteophytes, most notable at C6-C7 level. No acute findings. No osseous spinal canal stenosis. Soft tissues: Unremarkable. Lung apices: The included lung apices demonstrate no evidence for significant acute traumatic injury. IMPRESSION: No acute osseous traumatic injury or significant abnormal alignment involving the cervical spine.
--- NOTE | 2023-07-26 01:14 | CT ---
EXAM: CT Pelvis Without Intravenous Contrast CLINICAL HISTORY: Fall TECHNIQUE: Axial computed tomography images of the pelvis without intravenous contrast. CTDI is 10.5 mGy and DLP is 387.6 mGy-cm. This CT exam was performed using one or more of the following dose reduction techniques: automated exposure control, adjustment of the mA and/or kV according to patient size, and/or use of iterative reconstruction technique. COMPARISON: Plain radiographs performed earlier FINDINGS: Bones/joints: Mildly displaced fracture involving the left superior and inferior pubic rami, to involve the left symphysis pubis. Nondisplaced fracture involving the lateral left sacral wing adjacent to the symphysis pubis. The remaining pelvic bones are intact. The femoral heads and proximal femurs are intact. Soft tissues: Superficial contusive changes lateral to the greater trochanter, partially excluded from the [id number]. Bladder: Unremarkable. No stones. IMPRESSION: 1. Mildly displaced fracture involving the left superior and inferior pubic rami, to involve the left symphysis pubis. 2. Nondisplaced fracture involving the lateral left sacral wing adjacent to the symphysis pubis.
[2023-07-26 01:19] LABS: INR 1.3 (<1.2); Partial Thromboplastin Time 22.9 sec (22.0-30.0); Prothrombin Time 12.8 sec (9.0-12.0)
[2023-07-26 01:22] LABS: ALT 21 U/L (4-34); AST 30 U/L (14-36); African American GFR (CKD) 43 (>60 ml/min/1.73 sqM); Albumin 3.7 g/dL (3.5-5.0); Alcohol <10 mg/dL; Alkaline Phosphatase 100 U/L (38-126); Anion Gap 10 mmol/L; Blood Urea Nitrogen 27 mg/dL (7-17); Calcium 10.4 mg/dL (8.4-10.2); Carbon Dioxide 23 mmol/L (22-30); Chloride 104 mmol/L (98-107); Glucose 153 mg/dL (74-99); Non-African American GFR(CKD) 37 (>60 ml/min/1.73 sqM); Potassium 4.2 mmol/L (3.5-5.1); Sodium 137 mmol/L (137-145); Total Bilirubin 0.5 mg/dL (0.2-1.3); Total Protein 6.9 g/dL (6.3-8.2)
[2023-07-26] MEDS ORDERED: MORPHINE SULFATE 4 MG/ML SYRINGE IV STA (01:22)
--- NOTE | 2023-07-26 02:23 | CT ---
EXAM: CT Chest Without Intravenous Contrast CLINICAL HISTORY: Fall TECHNIQUE: Axial computed tomography images of the chest without intravenous contrast. CTDI is 6.9 mGy and DLP is 286.9 mGy-cm. This CT exam was performed using one or more of the following dose reduction techniques: automated exposure control, adjustment of the mA and/or kV according to patient size, and/or use of iterative reconstruction technique. COMPARISON: Unenhanced CT chest dated 11/09/2010 FINDINGS: Lungs: No pulmonary contusive injury or focal consolidation with minimal linear changes adjacent to the major fissures. Pleural space: Unremarkable. No pneumothorax. No significant effusion. Heart: The cardiac chambers are normal in caliber. Hypodense trace pericardial effusion is noted. No mediastinal traumatic injury identified. No significant coronary artery calcifications. Bones/joints: The thoracic vertebral bodies are intact without compression fracture. No displaced rib fracture. There is a subtle focal sclerotic band involving the anterolateral left fourth rib. No dislocation. Soft tissues: Unremarkable. Vasculature: Atherosclerotic calcification of the normal caliber aorta. No thoracic aortic aneurysm. Lymph nodes: Unremarkable. No enlarged lymph nodes. IMPRESSION: 1. There is a subtle focal sclerotic band involving the anterolateral left fourth rib. Suspect a nondisplaced rib fracture. No other acute osseous abnormality identified. No other significant acute traumatic injury involving the unenhanced chest/thorax. 2. Incidental trace pericardial effusion is hypodense and presumed incidental, similar to the previous examination.
[2023-07-26] MEDS ORDERED: NALOXONE 0.4 MG/ML 1 ML VIAL IV PRN (02:54)
[2023-07-26] MEDS: SODIUM CHLORIDE 0.9% 1,000 ML IV SCH (03:32)
[2023-07-26] MEDS: MORPHINE SULFATE 4 MG/ML SYRINGE IV PRN ×3 (03:40→20:55)
[2023-07-26 05:25] LABS: Amphetamine Screen,Urine Not Detected (NotDetected); Barbiturate Screen,Urine Not Detected (NotDetected); Benzodiazepines Screen,Urine Not Detected (NotDetected); Cocaine Screen,Urine Not Detected (NotDetected); Methadone Screen, Urine Not Detected (NotDetected); Opiate Screen,Urine Detected (NotDetected); Phencyclidine Screen,Urine Not Detected (NotDetected); Tricyclic Antidepressant,Urine Not Detected (NotDetected); Urn Cannabinoid Scrn Not Detected (NotDetected)
[2023-07-26 05:26] LABS: Oxycodone Screen, Urine Not Detected (NotDetected)
[2023-07-26] MEDS ORDERED: traMADol 50 MG TAB PO PRN (09:15)
--- NOTE | 2023-07-26 09:30 | P.HPOR ---
History of Present Illness H&P Date: 07/26/23 Chief Complaint: Pelvic fracture Patient is an 83-year-old female who presented to [facility] emergency room on 07/26/2023 after sustaining a fall. Patient was walking out to her mailbox when she lost her balance on a step and fell directly on the left-hand side. Patient admitted hitting her head during the fall, she denied loss of consciousness. Patient was brought to the hospital by EMS, multiple imaging and lab tests were done. Computed tomography of the head revealed no acute processes. Imaging studies of the pelvis did represent a left-sided pelvic fracture. I was contacted by the emergency room physician regarding the patient, is able to review the images. Patient was admitted under our orthopedic care, internal medicine was consulted for medical management. Patient was evaluated today, she is resting comfortably in her bed, she is currently in the emergency room. While lying still, she is very minimal discomfort. When she does attempt to roll around in bed she notes pain on the left-hand side in the pelvic region. Patient denies any previous orthopedic surgery to the hips, knees, feet or ankle. She denies any previous back surgery. She does note some occasional back pain prior to the fall. She denies any previous orthopedic surgery to the bilateral upper extremity is, she denies any pain in the bilateral upper extremities. She denies any headaches, lightheadedness, blurred vision at this time. Denies any new onset cervical or thoracic pain. Patient does live with her son. She still drives, she will occasionally utilize a cane or walker for ambulation. Patient does take Plavix and Eliquis for Afib. Review of Systems Constitutional: Reports as per HPI Past Medical History Past Medical History: Atrial Fibrillation, Chest Pain / Angina, CVA/TIA, GERD/Reflux, Hyperlipidemia, Hypertension, Osteoarthritis (OA) Additional Past Medical History / Comment(s): past migraines, tia 2006-no residual effects, a-fib for last few years per pt, varicose veins, seasonal allergies/sinus problems, hiatal hernia, recent adm to [facility] w/hematuria History of Any Multi-Drug Resistant Organisms: None Reported Past Surgical History: Bladder Surgery, Cholecystectomy, Heart Catheterization, Hysterectomy, Tonsillectomy Additional Past Surgical History / Comment(s): cataracts, egd/colonoscopy, bladder suspension Past Anesthesia/Blood Transfusion Reactions: No Reported Reaction, Family History of Problems w/ Anesthesia Additional Past Anesthesia/Blood Transfusion Reaction / Comment(s): sister had knee surg., trouble waking up, ended up having stroke Smoking Status: Never smoker - Past Family History Father Family Medical History: Coronary Artery Disease (CAD) Additional Family Medical History / Comment(s): heart problems Mother Additional Family Medical History / Comment(s): "blood disorder"too many wbc's, but not leukemia" Medications and Allergies Home Medications Medication Instructions Recorded Confirmed Type Clopidogrel Bisulfate [Plavix] 75 mg PO DAILY 12/05/16 07/26/23 History Benazepril HCl 20 mg PO HS 05/01/17 07/26/23 History Apixaban [Eliquis] 5 mg PO BID 08/03/19 07/26/23 History Sertraline HCl [Zoloft] 50 mg PO HS 08/03/19 07/26/23 History Pravastatin Sodium [Pravachol] 80 mg PO HS 02/01/23 07/26/23 History amLODIPine [Norvasc] 5 mg PO DAILY 07/26/23 07/26/23 History Allergies Allergy/AdvReac Type Severity Reaction Status Date / Time No Known Allergies Allergy Verified 07/26/23 07:02 Physical Examination Gen: AOx3, NAD VSS stable at this time Integument: No obvious open lesions, sores, areas of erythema in the cervical, thoracic or lumbar region. There is some bruising noted on the lateral thigh on the left- hand side, there is some mild soft tissue swelling present. No open lesions or sores are visualized throughout bilateral upper or lower extremities Palpation: No tenderness with palpation throughout the cervical, thoracic or lumbar spine both midline and paraspinal. No point tenderness is appreciated throughout the bilateral upper and lower extremities and right lower extremity. She does demonstrate some soreness with palpation in the area swelling on the lateral proximal thigh ROM: Full range of motion in all major muscle groups of the bilateral upper extremities, no focal deficits. Full range of motion in right lower extremity, no focal deficits Range of motion in left lower extremity is difficult due to pain, especially with hip flexion. Patient is able to flex and extend the knee along with plantar flexion, dorsiflexion, EHL, FHL with minimal difficulty Sensory Exam: Senory exam to light touch is intact C5-T1 Senosry exam to light touch is intact L2-S1 Motor: 4+/5 strength appreciated in the bilateral upper extremities with shoulder elevation, shoulder abduction, elbow extension, elbow flexion, wrist extension, wrist flexion, major assembler 4+/5 strength admission the right lower extremity with hip flexion, knee extension, knee flexion, plantar flexion, dorsiflexion, EHL, FHL 4+/5 strength the patient the left lower extremity with knee extension, knee fl exion, plantar flexion, dorsiflexion, EHL, FHL, strength is slightly diminished with hip flexion due to pain reproduced Reflexes: 2/4 in all UE and LE Negative Robby's, negative clonus, negative Babinski bilaterally Special Test: Logroll reproduces no groin pain to the bilateral lower extremities Results - Labs Labs: Abnormal Lab Results - Last 24 Hours (Table) 07/26/23 07/26/23 07/26/23 Range/Units 00:31 00:31 00:31 Neutrophils # 8.0 H (1.3-7.7) k/uL PT 12.8 H (9.0-12.0) sec INR 1.3 H (<1.2) BUN 27 H (7-17) mg/dL Creatinine 1.33 H (0.52-1.04) mg/dL Glucose 153 H (74-99) mg/dL Calcium 10.4 H (8.4-10.2) mg/dL Urine Opiates Screen (NotDetected) 07/26/23 Range/Units 04:00 Neutrophils # (1.3-7.7) k/uL PT (9.0-12.0) sec INR (<1.2) BUN (7-17) mg/dL Creatinine (0.52-1.04) mg/dL Glucose (74-99) mg/dL Calcium (8.4-10.2) mg/dL Urine Opiates Screen Detected H (NotDetected) H & H 07/26/23 Range/Units 00:31 Hgb 11.9 (11.4-16.0) gm/dL Hct 36.2 (34.0-46.0) % Coagulation 07/26/23 Range/Units 00:31 INR 1.3 H (<1.2) Result Diagrams: 07/26/23 00:31 07/26/23 00:31 Assessment and Plan Assessment: Left sided LC type I pelvic fracture Left thigh contusion Status post fall from standing A. fib Other medical comorbidities Plan: Imaging: AP pelvis x-ray along with pelvic CT report and images were reviewed. Images demonstrate left-sided LC type I fracture, this to include superior and inferior pubic rami fracture and sacral fracture. Pelvic x-rays and CT also confirmed bilateral hip osteoarthritis. No significant SI joint widening appreciated Plan: I was able to discuss the case, this to include both imaging test and physical exam findings with my attending Dr. Valdez. No emergent orthopedic surgical intervention is recommended at this time. Recommending conservative measures, this typically physical therapy evaluation, icing of the proximal left lower extremity, use of Tylenol and low-dose pain medication PT and OT evaluation Weight-bear as tolerated, utilize walker Utilize urinary catheter for the next 24-48 hours until more ambulatory Internal medicine recommendation Case management evaluation for likely subacute rehab placement Further recommendations to follow Time with Patient: Less than 30
--- NOTE | 2023-07-26 12:04 | P.CONS ---
History of Present Illness - Reason for Consult Consult date: 07/26/23 - History of Present Illness Patient is a 83-year-old female with history of atrial fibrillation, hyperten amy, dyslipidemia, depression presenting after a mechanical fall. Last night, patient went to her front porch and missed a step, falling onto her left side hitting her left hip on the concrete as well as her left side of forehead onto the grassy area. She normally ambulates without any assistive devices, but occasionally does use a walker. She denied any chest pain, shortness of breath, abdominal pain, nausea, vomiting, urinary or bowel complaints. She normally has bowel movements every 2-3 days. She denies any bleeding. In the ED, temperature was 96.1, pulse 96, respiratory rate 18, blood pressure 90/64, saturating 99% on room air. WBC 10.6, hemoglobin 11.9, INR 1.3, sodium 137, potassium 4.2, creatinine 1.33. Head and cervical spine CT did not show any acute fractures or acute process. Chest CT showed anterolateral left fourth rib non-displaced fracture, trace pericardial effusion, likely incidental. Pelvic CT shows mildly displaced fracture involving the left superior and inferior pubic rami, nondisplaced fracture involving the left lateral sacral wing. Patient admitted to orthopedic surgery. [facility] has been consulted for medical management. Pertinent positives and negatives as discussed in HPI, a complete review of systems was performed and all other systems are negative. Patient seen and examined at bedside. Vital signs reviewed General: nontoxic, no distress, appears at stated age Derm: warm, dry Head: atraumatic, normocephalic, symmetric Eyes: EOMI, no lid lag, anicteric sclera, pupils equal round reactive to light ENT: Nose and ears atraumatic Neck: No thyromegaly, supple Mouth: no lip lesion, mucus membranes moist Cardiovascular: S1S2 reg, no murmur, no edema Lungs: clear to auscultation bilateral, no rhonchi, no rales, no wheeze, no accessory muscle use Abdominal: soft, nontender to palpation, no guarding, no appreciable organom egaly Ext: no gross muscle atrophy, unable to move left lower extremity due to pain Neuro: CN II-XII grossly intact Psych: Alert, oriented, appropriate affect Assessment/Plan: Mechanical fall Traumatic pelvic fracture Hypotension History of hypertension Paroxysmal Atrial fibrillation on anticoagulation Dyslipidemia Depression -Orthopedic surgery note reviewed, recommending conservative measures -Antihypertensives held -Repeat CBC, BMP and lactic acid ordered -Patient is currently asymptomatic from hypotension -Eliquis and Plavix held, will be resumed when deemed appropriate by orthopedic surgery -Continue statin, continue sertraline Thank you for allowing us to participate in the care of this pleasant patient. Do not hesitate to contact us with questions. Someone can be reached from the [facility] hospitalist group all hours of the day at [phone] or via itBit. Past Medical History Past Medical History: Atrial Fibrillation, Chest Pain / Angina, CVA/TIA, GERD/Reflux, Hyperlipidemia, Hypertension, Osteoarthritis (OA) Additional Past Medical History / Comment(s): past migraines, tia 2005-no residual effects, a-fib for last few years per pt, varicose veins, seasonal allergies/sinus problems, hiatal hernia, recent adm to [facility] w/hematuria History of Any Multi-Drug Resistant Organisms: None Reported Past Surgical History: Bladder Surgery, Cholecystectomy, Heart Catheterization, Hysterectomy, Tonsillectomy Additional Past Surgical History / Comment(s): cataracts, egd/colonoscopy, bladder suspension Past Anesthesia/Blood Transfusion Reactions: No Reported Reaction, Family History of Problems w/ Anesthesia Additional Past Anesthesia/Blood Transfusion Reaction / Comm: sister had knee surg., trouble waking up, ended up having stroke Smoking Status: Never smoker - Past Family History Father Family Medical History: Coronary Artery Disease (CAD) Additional Family Medical History / Comment(s): heart problems Mother Additional Family Medical History / Comment(s): "blood disorder"too many wbc's, but not leukemia" Medications and Allergies Home Medications Medication Instructions Recorded Confirmed Type Clopidogrel Bisulfate [Plavix] 75 mg PO DAILY 12/05/16 07/26/23 History Benazepril HCl 20 mg PO HS 05/01/17 07/26/23 History Apixaban [Eliquis] 5 mg PO BID 08/03/19 07/26/23 History Sertraline HCl [Zoloft] 50 mg PO HS 08/03/19 07/26/23 History Pravastatin Sodium [Pravachol] 80 mg PO HS 02/01/23 07/26/23 History amLODIPine [Norvasc] 5 mg PO DAILY 07/26/23 07/26/23 History Allergies Allergy/AdvReac Type Severity Reaction Status Date / Time No Known Allergies Allergy Verified 07/26/23 07:02 Physical Exam Vitals: Vital Signs Temp Pulse Resp BP Pulse Ox 07/26/23 11:26 97.6 F 72 16 96 07/26/23 07:34 77 18 94/56 07/26/23 05:45 66 11 L 104/56 07/26/23 05:30 67 13 104/56 07/26/23 05:15 65 12 104/56 07/26/23 05:00 71 8 L 136/85 07/26/23 04:45 88 14 136/85 07/26/23 04:30 70 9 L 136/85 07/26/23 04:15 80 14 136/85 07/26/23 04:00 64 15 92/43 07/26/23 03:45 68 18 114/90 98 07/26/23 03:30 89 18 102/77 96 07/26/23 03:15 89 18 108/78 95 07/26/23 03:00 80 18 115/71 97 07/26/23 02:45 85 14 121/62 07/26/23 02:30 84 10 L 120/66 95 07/26/23 02:15 84 9 L 95 07/26/23 02:00 110/64 07/26/23 01:50 65 6 L 110/64 98 07/26/23 01:40 86 14 94/59 97 07/26/23 01:30 109 H 12 124/71 98 07/26/23 01:20 74 8 L 124/71 98 07/26/23 01:10 84 18 87/74 99 07/26/23 01:00 135/65 07/26/23 00:40 96.1 F L 74 18 139/78 98 07/26/23 00:38 97 07/26/23 00:35 96.1 F L 75 18 90/64 99 07/26/23 00:21 96.1 F L 96 18 90/64 99 Intake and Output 07/25/23 07/26/23 07/26/23 22:59 06:59 14:59 Output Total 100 Balance -100 Output: Urine 100 Other: Weight 66.224 kg Results CBC & Chem 7: 07/26/23 00:31 07/26/23 00:31 Labs: Abnormal Lab Results - Last 24 Hours (Table) 07/26/23 07/26/23 07/26/23 Range/Units 00:31 00:31 00:31 Neutrophils # 8.0 H (1.3-7.7) k/uL PT 12.8 H (9.0-12.0) sec INR 1.3 H (<1.2) BUN 27 H (7-17) mg/dL Creatinine 1.33 H (0.52-1.04) mg/dL Glucose 153 H (74-99) mg/dL Calcium 10.4 H (8.4-10.2) mg/dL Urine Opiates Screen (NotDetected) 07/26/23 Range/Units 04:00 Neutrophils # (1.3-7.7) k/uL PT (9.0-12.0) sec INR (<1.2) BUN (7-17) mg/dL Creatinine (0.52-1.04) mg/dL Glucose (74-99) mg/dL Calcium (8.4-10.2) mg/dL Urine Opiates Screen Detected H (NotDetected)
[2023-07-26 12:27] LABS: HCT 28.3 % (34.0-46.0); Hypochromasia Slight; MCH 29.8 pg (25.0-35.0); MCHC 32.1 g/dL (31.0-37.0); MCV 92.7 fL (80.0-100.0); Mean Platelet Volume 8.4; Platelet Count 180 k/uL (150-450); RBC 3.05 m/uL (3.80-5.40); RDW 14.8 % (11.5-15.5); WBC 9.3 k/uL (3.8-10.6)
[2023-07-26 12:33] LABS: HGB 9.1 gm/dL (11.4-16.0)
[2023-07-26 13:01] LABS: African American GFR (CKD) 42 (>60 ml/min/1.73 sqM); Anion Gap 7 mmol/L; Blood Urea Nitrogen 34 mg/dL (7-17); Calcium 9.5 mg/dL (8.4-10.2); Carbon Dioxide 20 mmol/L (22-30); Chloride 110 mmol/L (98-107); Glucose 136 mg/dL (74-99); Non-African American GFR(CKD) 37 (>60 ml/min/1.73 sqM); Potassium 4.7 mmol/L (3.5-5.1); Sodium 137 mmol/L (137-145)
[2023-07-26 20:12] LABS: Basophils % (A) 0 %; Eosinophils % (A) 0 %; HCT 26.4 % (34.0-46.0); HGB 8.6 gm/dL (11.4-16.0); Lymphocytes # (A) 1.4 k/uL (1.0-4.8); Lymphocytes % (A) 16 %; MCH 30.1 pg (25.0-35.0); MCHC 32.6 g/dL (31.0-37.0); MCV 92.1 fL (80.0-100.0); Mean Platelet Volume 8.6; Monocytes # (A) 0.5 k/uL (0-1.0); Monocytes % (A) 6 %; Neutrophils # (A) 6.5 k/uL (1.3-7.7); Neutrophils % (A) 76 %; Platelet Count 164 k/uL (150-450); RBC 2.86 m/uL (3.80-5.40); WBC 8.6 k/uL (3.8-10.6)
[2023-07-26] MEDS: PRAVASTATIN SODIUM 80 MG TAB PO SCH (22:15)
[2023-07-26] MEDS: SERTRALINE 50 MG TAB PO SCH (22:15)
[2023-07-27] MEDS ORDERED: SODIUM CHLORIDE 0.9% 500 ML 500 ML IV ONE (02:48)
[2023-07-27] MEDS ORDERED: traMADol 50 MG TAB PO PRN (03:00)
[2023-07-27] MEDS: MORPHINE SULFATE 4 MG/ML SYRINGE IV PRN (04:22)
[2023-07-27] MEDS: SODIUM CHLORIDE 0.9% 1,000 ML IV SCH ×3 (04:23→16:55)
[2023-07-27 06:18] LABS: Basophils % (A) 0 %; Eosinophils # (A) 0.1 k/uL (0-0.7); Eosinophils % (A) 1 %; HCT 24.7 % (34.0-46.0); HGB 7.9 gm/dL (11.4-16.0); Hypochromasia Slight; Lymphocytes # (A) 1.3 k/uL (1.0-4.8); Lymphocytes % (A) 16 %; MCHC 32.1 g/dL (31.0-37.0); MCV 93.4 fL (80.0-100.0); Mean Platelet Volume 8.5; Monocytes # (A) 0.6 k/uL (0-1.0); Monocytes % (A) 8 %; Neutrophils # (A) 5.9 k/uL (1.3-7.7); Neutrophils % (A) 74 %; Platelet Count 138 k/uL (150-450); RBC 2.64 m/uL (3.80-5.40); RDW 14.9 % (11.5-15.5); WBC 7.9 k/uL (3.8-10.6)
[2023-07-27 06:28] LABS: African American GFR (CKD) 44 (>60 ml/min/1.73 sqM); Anion Gap 5 mmol/L; Blood Urea Nitrogen 33 mg/dL (7-17); Calcium 8.7 mg/dL (8.4-10.2); Carbon Dioxide 20 mmol/L (22-30); Chloride 107 mmol/L (98-107); Glucose 117 mg/dL (74-99); Non-African American GFR(CKD) 38 (>60 ml/min/1.73 sqM); Potassium 4.3 mmol/L (3.5-5.1); Sodium 132 mmol/L (137-145)
--- NOTE | 2023-07-27 10:07 | P.PN ---
Subjective Progress Note Date: 07/27/23 Principal diagnosis: left-sided pelvic fracture Patient was evaluated today at bedside, she is resting in her hospital bed. Patient appears comfortable on exam, she has not been out of bed with therapy. She does note some discomfort on the left side of the pelvis with movement. She's having no other orthopedic complaints at this time. Patient's blood pressure has been running low, hemoglobin has dropped also. Internal medicine has ordered a CT of the abdomen and pelvis. Patient remains on IV fluids, oral anticoagulants are held at this time. Objective - Vital Signs Vital signs: Vital Signs Temp 98.6 F 07/27/23 07:28 Pulse 76 07/27/23 07:28 Resp 18 07/27/23 07:28 BP 85/49 07/27/23 07:28 Pulse Ox 95 07/27/23 08:12 FiO2 Intake & Output 07/26/23 07/27/23 07/27/23 18:59 06:59 18:59 Output Total 100 125 Balance -100 -125 Weight 66.224 kg Output: Urine 100 125 Other: Voiding Method Indwelling Catheter - Exam Gen: AOx3, NAD VSS stable at this time Integument: No obvious open lesions, sores, areas of erythema in the cervical, thoracic or lumbar region. There is some bruising noted on the lateral thigh on the left- hand side, there is some mild soft tissue swelling present. No open lesions or sores are visualized throughout bilateral upper or lower extremities Palpation: No tenderness with palpation throughout the cervical, thoracic or lumbar spine both midline and paraspinal. No point tenderness is appreciated throughout the bilateral upper and lower extremities and right lower extremity. She does demonstrate some soreness with palpation in the area swelling on the lateral proximal thigh ROM: Full range of motion in all major muscle groups of the bilateral upper extremities, no focal deficits. Full range of motion in right lower extremity, no focal deficits Range of motion in left lower extremity is difficult due to pain, especially with hip flexion. Patient is able to flex and extend the knee along with plantar flexion, dorsiflexion, EHL, FHL with minimal difficulty Sensory Exam: Senory exam to light touch is intact C5-T1 Senosry exam to light touch is intact L2-S1 Motor: 4+/5 strength appreciated in the bilateral upper extremities with shoulder elevation, shoulder abduction, elbow extension, elbow flexion, wrist extension, wrist flexion, supervisory aide 4+/5 strength admission the right lower extremity with hip flexion, knee extension, knee flexion, plantar flexion, dorsiflexion, EHL, FHL 4+/5 strength the patient the left lower extremity with knee extension, knee flexion, plantar flexion, dorsiflexion, EHL, FHL, strength is slightly diminished with hip flexion due to pain reproduced Reflexes: 2/4 in all UE and LE Negative Robby's, negative clonus, negative Babinski bilaterally Special Test: Logroll reproduces no groin pain to the bilateral lower extremities - Labs CBC & Chem 7: 07/27/23 05:55 07/27/23 05:55 Labs: Abnormal Lab Results - Last 24 Hours (Table) 07/26/23 07/26/23 07/26/23 Range/Units 11:59 11:59 19:29 RBC 3.05 L 2.86 L (3.80-5.40) m/uL Hgb 9.1 L D 8.6 L (11.4-16.0) gm/dL Hct 28.3 L 26.4 L (34.0-46.0) % Plt Count (150-450) k/uL Sodium (137-145) mmol/L Chloride 110 H (98-107) mmol/L Carbon Dioxide 20 L (22-30) mmol/L BUN 34 H (7-17) mg/dL Creatinine 1.35 H (0.52-1.04) mg/dL Glucose 136 H (74-99) mg/dL 07/27/23 07/27/23 Range/Units 05:55 05:55 RBC 2.64 L (3.80-5.40) m/uL Hgb 7.9 L (11.4-16.0) gm/dL Hct 24.7 L (34.0-46.0) % Plt Count 138 L (150-450) k/uL Sodium 132 L (137-145) mmol/L Chloride (98-107) mmol/L Carbon Dioxide 20 L (22-30) mmol/L BUN 33 H (7-17) mg/dL Creatinine 1.30 H (0.52-1.04) mg/dL Glucose 117 H (74-99) mg/dL Assessment and Plan Assessment: Left sided LC type I pelvic fracture Left thigh contusion Status post fall from standing Anemia A. fib Other medical comorbidities Plan: Plan: Recommending conservative measures, physical therapy evaluation, icing of the proximal left lower extremity, use of Tylenol and low-dose pain medication. Will start ferrous sulfate 325 mg twice a day, if CBC continues to decline will order pack RBCs. Continue IV fluid DVT prophylaxis, hold oral anticoagulants at that time, we'll likely start subcu medication the next 2448 hours pending CBC PT and OT evaluation Weight-bear as tolerated, utilize walker Maintain urinary catheter Subacute rehab placement, discuss this with case management likely 07/31/2023 Further recommendations to follow Time with Patient: Less than 30
--- NOTE | 2023-07-27 14:10 | P.PN ---
Subjective Progress Note Date: 07/27/23 Subjective: Patient seen and examined at bedside. No acute events overnight. He does have fatigue, and left-sided hip and flank pain. Pertinent positives and negatives as discussed above, a complete review of systems was performed and all other systems are negative. Vitals Signs Reviewed. General: nontoxic, no distress, appears at stated age] Derm: warm, dry, large ecchymosis on left lateral and left flank, tenderness palpitations Head: atraumatic, normocephalic, symmetric Eyes: EOMI, no lid lag, anicteric sclera Mouth: no lip lesion, mucus membranes moist Cardiovascular: S1S2 reg, no murmur Lungs: CTA bilateral, no rhonchi, no rales , no accessory muscle use Abdominal: soft, nontender to palpation, no guarding, no appreciable organomegaly Ext: Reduced range of motion in the left lower extremity due to pain Neuro: CN II-XI grossly intact, no focal neuro deficits Psych: Alert, oriented, appropriate affect Data Reviewed Today: Pertinent Labs: Hemoglobin 7.9, platelet 138, sodium 132, bicarb 20, creatinine 1.3 Imaging: CT abdomen and pelvis ordered Assessment and Plan: Acute blood loss anemia Mechanical fall Traumatic pelvic fracture Hypotension, now improved History of hypertension Paroxysmal Atrial fibrillation on anticoagulation Dyslipidemia Depression -Orthopedic surgery note reviewed, recommending conservative measures, started on oral iron, CBC tomorrow, hold anticoagulation -Antihypertensives held -CT abdomen and pelvis ordered to rule out any internal bleeding -Continue statin, continue sertraline -Pain control with IV morphine as needed, oral Tylenol as needed, oral tramadol as needed Thank you for allowing us to participate in the care of this pleasant patient. Do not hesitate to contact us with questions. Someone can be reached from the [facility] hospitalist group all hours of the day at [phone] or via Abloomy serve. Objective - Vital Signs Vital signs: Vital Signs Temp 98.2 F 07/27/23 12:38 Pulse 85 07/27/23 12:38 Resp 16 07/27/23 12:38 BP 101/60 07/27/23 12:38 Pulse Ox 93 L 07/27/23 12:38 FiO2 Intake & Output 07/26/23 07/27/23 07/27/23 18:59 06:59 18:59 Output Total 100 125 Balance -100 -125 Weight 66.224 kg 66.224 kg Output: Urine 100 125 Other: Voiding Method Indwelling Catheter - Labs CBC & Chem 7: 07/27/23 05:55 07/27/23 05:55 Labs: Abnormal Lab Results - Last 24 Hours (Table) 07/26/23 07/27/23 07/27/23 Range/Units 19:29 05:55 05:55 RBC 2.86 L 2.64 L (3.80-5.40) m/uL Hgb 8.6 L 7.9 L (11.4-16.0) gm/dL Hct 26.4 L 24.7 L (34.0-46.0) % Plt Count 138 L (150-450) k/uL Sodium 132 L (137-145) mmol/L Carbon Dioxide 20 L (22-30) mmol/L BUN 33 H (7-17) mg/dL Creatinine 1.30 H (0.52-1.04) mg/dL Glucose 117 H (74-99) mg/dL
[2023-07-27 16:08] VITALS: BMI 26.6
[2023-07-27] MEDS: FERROUS SULFATE 325 MG TAB PO SCH (16:55)
[2023-07-27] MEDS: PRAVASTATIN SODIUM 80 MG TAB PO SCH (20:30)
[2023-07-27] MEDS: SERTRALINE 50 MG TAB PO SCH (20:30)
[2023-07-28] MEDS: SODIUM CHLORIDE 0.9% 1,000 ML IV SCH ×2 (05:15→05:17)
[2023-07-28 05:42] LABS: Basophils % (A) 0 %; Eosinophils # (A) 0.1 k/uL (0-0.7); Eosinophils % (A) 1 %; HCT 22.9 % (34.0-46.0); HGB 7.6 gm/dL (11.4-16.0); Lymphocytes # (A) 1.4 k/uL (1.0-4.8); Lymphocytes % (A) 17 %; MCH 30.3 pg (25.0-35.0); MCHC 33.1 g/dL (31.0-37.0); MCV 91.6 fL (80.0-100.0); Mean Platelet Volume 8.8; Monocytes # (A) 0.6 k/uL (0-1.0); Monocytes % (A) 7 %; Neutrophils # (A) 5.8 k/uL (1.3-7.7); Neutrophils % (A) 73 %; Platelet Count 132 k/uL (150-450); RDW 14.9 % (11.5-15.5)
[2023-07-28 05:46] LABS: African American GFR (CKD) 61 (>60 ml/min/1.73 sqM); Anion Gap 4 mmol/L; Blood Urea Nitrogen 28 mg/dL (7-17); Calcium 8.7 mg/dL (8.4-10.2); Carbon Dioxide 22 mmol/L (22-30); Chloride 107 mmol/L (98-107); Glucose 108 mg/dL (74-99); Non-African American GFR(CKD) 53 (>60 ml/min/1.73 sqM); Potassium 4.1 mmol/L (3.5-5.1); Sodium 133 mmol/L (137-145)
[2023-07-28] MEDS: FERROUS SULFATE 325 MG TAB PO SCH ×2 (07:56→14:38)
[2023-07-28] MEDS: amLODIPine 5 MG TAB PO SCH (10:56)
--- NOTE | 2023-07-28 11:20 | P.PN ---
Subjective Progress Note Date: 07/28/23 Subjective: Patient seen and examined at bedside. No acute events overnight. Continue have left-sided pain. Pertinent positives and negatives as discussed above, a complete review of systems was performed and all other systems are negative. Vitals Signs Reviewed. General: nontoxic, no distress, appears at stated age] Derm: warm, dry, large ecchymosis on left lateral and left flank, tenderness palpitations Head: atraumatic, normocephalic, symmetric Eyes: EOMI, no lid lag, anicteric sclera Mouth: no lip lesion, mucus membranes moist Cardiovascular: S1S2 reg, no murmur Lungs: CTA bilateral, no rhonchi, no rales , no accessory muscle use Abdominal: soft, nontender to palpation, no guarding, no appreciable organomegaly Ext: Reduced range of motion in the left lower extremity due to pain Neuro: CN II-XI grossly intact, no focal neuro deficits Psych: Alert, oriented, appropriate affect Data Reviewed Today: Pertinent Labs: Hemoglobin 7.6, platelet 132, sodium 133, creatinine 0.99 Imaging: CT abdomen and pelvis report pending Assessment and Plan: Acute blood loss anemia Mechanical fall Traumatic pelvic fracture Hypotension, now improved History of hypertension Paroxysmal Atrial fibrillation on anticoagulation Dyslipidemia Depression -Discussed imaging with radiology, left muscle wall hematoma appears stable, also has a extraperitoneal hematoma which is stable -Official report pending -Orthopedic surgery following, recommending conservative measures, - started on oral iron, CBC tomorrow, hold anticoagulation -Antihypertensives now restarted -Continue statin, continue sertraline -Pain control with IV morphine as needed, oral Tylenol as needed, oral tramadol as needed Patient likely will have her rehab bed available tomorrow Thank you for allowing us to participate in the care of this pleasant patient. Do not hesitate to contact us with questions. Someone can be reached from the [facility] hospitalist group all hours of the day at [phone] or via Bplats. Objective - Vital Signs Vital signs: Vital Signs Temp 99 F 07/28/23 07:28 Pulse 87 07/28/23 10:25 Resp 18 07/28/23 09:28 BP 119/68 07/28/23 10:25 Pulse Ox 96 07/28/23 11:17 FiO2 Intake & Output 07/27/23 07/28/23 07/28/23 18:59 06:59 18:59 Intake Total 480 Output Total 50 525 Balance -50 -45 Weight 66.224 kg Intake: Oral 480 Output: Urine 50 525 Uretheral (Gutierrez) 25 Other: Voiding Method Indwelling Catheter Bedside Commode # Voids 2 - Labs CBC & Chem 7: 07/28/23 05:21 07/28/23 05:21 Labs: Abnormal Lab Results - Last 24 Hours (Table) 07/28/23 07/28/23 Range/Units 05:21 05:21 RBC 2.50 L (3.80-5.40) m/uL Hgb 7.6 L (11.4-16.0) gm/dL Hct 22.9 L (34.0-46.0) % Plt Count 132 L (150-450) k/uL Sodium 133 L (137-145) mmol/L BUN 28 H (7-17) mg/dL Glucose 108 H (74-99) mg/dL
--- NOTE | 2023-07-28 11:58 | CT ---
EXAMINATION TYPE: CT abdomen pelvis wo con DATE OF EXAM: 07/27/2023 COMPARISON: 07/26/2023 HISTORY: acute anemia CT DLP: 984 mGycm Examination of the solid and hollow viscera is limited given the lack of contrast. FINDINGS: LUNG BASES: No evidence for nodule. No evidence for infiltrate. Basilar compressive atelectasis or pa renchymal scarring. Mild cardiomegaly. LIVER/GB: The gallbladder is unremarkable. No space-occupying hepatic lesion. PANCREAS: No pancreatic mass identified. No inflammatory process seen. SPLEEN: No evidence for splenomegaly. No intrasplenic lesions seen. ADRENALS: No adrenal nodules identified. No evidence for thickening. KIDNEYS: No evidence for renal mass. No nephrolithiasis. No hydronephrosis. BOWEL: Appendix has a normal appearance. No evidence of bowel obstruction. No inflammatory process. Lymph nodes: No evidence for adenopathy greater than 1 cm. Abdominal aorta: Atheromatous changes seen. No evidence for aneurysm. Genital organs: No significant abnormality. Other: Previously described fractures are noted of the left superior and inferior pubic rami with inv olvement of the left symphysis pubis with surrounding hemorrhage noted adjacent to the urinary bladde r and left pelvic sidewall. Amount of hemorrhage is felt to be stable relative to the prior study. Th ere is also subcutaneous contusive change about the left hip. There Is also nondisplaced fracture inv olving the lateral left sacral wing. There is hemorrhage noted about the IMPRESSION: 1.Previously described fractures are noted of the left superior and inferior pubic rami with involvem ent of the left symphysis pubis with surrounding hemorrhage noted adjacent to the urinary bladder and left pelvic sidewall small in amount. Amount of hemorrhage is felt to be stable relative to the prio r study.
--- NOTE | 2023-07-28 14:00 | P.PN ---
Subjective Progress Note Date: 07/28/23 Principal diagnosis: left-sided pelvic fracture Patient was evaluated today at bedside, she is resting in her hospital bed. Patient appears comfortable on exam. Discussed with nursing, patient did very well working with physical therapy today. He will remain stable, vitals re mained stable. Pain is currently controlled Objective - Vital Signs Vital signs: Vital Signs Temp 98.2 F 07/28/23 13:16 Pulse 66 07/28/23 13:16 Resp 18 07/28/23 13:16 BP 126/49 07/28/23 13:16 Pulse Ox 96 07/28/23 13:16 FiO2 Intake & Output 07/27/23 07/28/23 07/28/23 18:59 06:59 18:59 Intake Total 480 Output Total 50 775 Balance -50 -295 Weight 66.224 kg Intake: Oral 480 Output: Urine 50 775 Uretheral (Gutierrez) 25 Other: Voiding Method Indwelling Catheter Bedside Commode # Voids 2 - Exam Gen: AOx3, NAD VSS stable at this time Integument: No obvious open lesions, sores, areas of erythema in the cervical, thoracic or lumbar region. There is some bruising noted on the lateral thigh on the left- hand side, there is some mild soft tissue swelling present. No open lesions or sores are visualized throughout bilateral upper or lower extremities Palpation: No tenderness with palpation throughout the cervical, thoracic or lumbar spine both midline and paraspinal. No point tenderness is appreciated throughout the bilateral upper and lower extremities and right lower extremity. She does demon strate some soreness with palpation in the area swelling on the lateral proximal thigh ROM: Full range of motion in all major muscle groups of the bilateral upper extremities, no focal deficits. Full range of motion in right lower extremity, no focal deficits Range of motion in left lower extremity is difficult due to pain, especially with hip flexion. Patient is able to flex and extend the knee along with plantar flexion, dorsiflexion, EHL, FHL with minimal difficulty Sensory Exam: Senory exam to light touch is intact C5-T1 Senosry exam to light touch is intact L2-S1 Motor: 4+/5 strength appreciated in the bilateral upper extremities with shoulder elevation, shoulder abduction, elbow extension, elbow flexion, wrist extension, wrist flexion, manufacturing engineering technician 4+/5 strength admission the right lower extremity with hip flexion, knee extension, knee flexion, plantar flexion, dorsiflexion, EHL, FHL 4+/5 strength the patient the left lower extremity with knee extension, knee flexion, plantar flexion, dorsiflexion, EHL, FHL, strength is slightly diminished with hip flexion due to pain reproduced Reflexes: 2/4 in all UE and LE Negative Robby's, negative clonus, negative Babinski bilaterally Special Test: Logroll reproduces no groin pain to the bilateral lower extremities - Labs CBC & Chem 7: 07/28/23 05:21 07/28/23 05:21 Labs: Abnormal Lab Results - Last 24 Hours (Table) 07/28/23 07/28/23 Range/Units 05:21 05:21 RBC 2.50 L (3.80-5.40) m/uL Hgb 7.6 L (11.4-16.0) gm/dL Hct 22.9 L (34.0-46.0) % Plt Count 132 L (150-450) k/uL Sodium 133 L (137-145) mmol/L BUN 28 H (7-17) mg/dL Glucose 108 H (74-99) mg/dL Assessment and Plan Assessment: Left sided LC type I pelvic fracture Left thigh contusion Status post fall from standing Anemia A. fib Other medical comorbidities Plan: Plan: Continue conservative measures, physical therapy evaluation, icing of the proxi mal left lower extremity, use of Tylenol and low-dose pain medication. Hemoglobin remained stable, continue to monitor. Continue oral iron twice a day DVT prophylaxis, continue to hold oral anticoagulants. We'll likely start subcu medication on 07/29/2023 PT and OT evaluation Weight-bear as tolerated, utilize walker Maintain urinary catheter Subacute rehab placement, awaiting bed availability Discharge planning: Orthopedically patient remained stable, anticipate discharged to rehab when bed is available at subacute rehab Time with Patient: Less than 30
[2023-07-28] MEDS: ASCORBIC ACID 500 MG TAB PO SCH (14:38)
[2023-07-28] MEDS: PRAVASTATIN SODIUM 80 MG TAB PO SCH (20:40)
[2023-07-28] MEDS: lisinopriL 20 MG TAB PO SCH (20:40)
[2023-07-28] MEDS: SERTRALINE 50 MG TAB PO SCH (20:40)
[2023-07-29] MEDS: SODIUM CHLORIDE 0.9% 1,000 ML IV SCH ×3 (01:27→11:17)
[2023-07-29 06:39] LABS: Basophils % (A) 0 %; Eosinophils # (A) 0.2 k/uL (0-0.7); Eosinophils % (A) 2 %; HCT 23.2 % (34.0-46.0); HGB 7.7 gm/dL (11.4-16.0); Lymphocytes # (A) 1.7 k/uL (1.0-4.8); Lymphocytes % (A) 20 %; MCH 30.1 pg (25.0-35.0); MCHC 33.1 g/dL (31.0-37.0); MCV 90.8 fL (80.0-100.0); Mean Platelet Volume 8.3; Monocytes # (A) 0.4 k/uL (0-1.0); Monocytes % (A) 5 %; Neutrophils # (A) 6.1 k/uL (1.3-7.7); Neutrophils % (A) 71 %; Platelet Count 158 k/uL (150-450); RBC 2.55 m/uL (3.80-5.40); RDW 14.9 % (11.5-15.5); WBC 8.6 k/uL (3.8-10.6)
[2023-07-29] MEDS: ACETAMINOPHEN TAB 325 MG TAB PO PRN (08:04)
[2023-07-29] MEDS: ASCORBIC ACID 500 MG TAB PO SCH (08:05)
[2023-07-29] MEDS: amLODIPine 5 MG TAB PO SCH (08:05)
[2023-07-29] MEDS: FERROUS SULFATE 325 MG TAB PO SCH ×2 (08:05→16:54)
--- NOTE | 2023-07-29 11:08 | P.PN ---
Subjective Progress Note Date: 07/29/23 Principal diagnosis: left-sided pelvic fracture Patient was evaluated today at bedside, she is resting in her hospital bed. Patient appears comfortable on exam. Pain is currently controlled Objective - Vital Signs Vital signs: Vital Signs Temp 98.3 F 07/29/23 07:45 Pulse 78 07/29/23 07:45 Resp 16 07/29/23 07:45 BP 127/66 07/29/23 07:45 Pulse Ox 97 07/29/23 07:45 FiO2 Intake & Output 07/28/23 07/29/23 07/29/23 18:59 06:59 18:59 Intake Total 480 Output Total 775 Balance -295 Intake: Oral 480 Output: Urine 775 Uretheral (Gutierrez) 25 Other: Voiding Method Bedside Commode Bedside Commode Bedside Commode # Voids 1 3 - Exam Gen: AOx3, NAD VSS stable at this time Integument: No obvious open lesions, sores, areas of erythema in the cervical, thoracic or lumbar region. There is some bruising noted on the lateral thigh on the left- hand side, there is some mild soft tissue swelling present. No open lesions or sores are visualized throughout bilateral upper or lower extremities Palpation: No tenderness with palpation throughout the cervical, thoracic or lumbar spine both midline and paraspinal. No point tenderness is appreciated throughout the bilateral upper and lower extremities and right lower extremity. She does demonstrate some soreness with palpation in the area swelling on the lateral proximal thigh ROM: Full range of motion in all major muscle groups of the bilateral upper extremities, no focal deficits. Full range of motion in right lower extremity, no focal deficits Range of motion in left lower extremity is difficult due to pain, especially with hip flexion. Patient is able to flex and extend the knee along with plantar flexion, dorsiflexion, EHL, FHL with minimal difficulty Sensory Exam: Senory exam to light touch is intact C5-T1 Senosry exam to light touch is intact L2-S1 Motor: 4+/5 strength appreciated in the bilateral upper extremities with shoulder elevation, shoulder abduction, elbow extension, elbow flexion, wrist extension, wrist flexion, assembler insulator 4+/5 strength admission the right lower extremity with hip flexion, knee extension, knee flexion, plantar flexion, dorsiflexion, EHL, FHL 4+/5 strength the patient the left lower extremity with knee extension, knee flexion, plantar flexion, dorsiflexion, EHL, FHL, strength is slightly diminished with hip flexion due to pain reproduced Reflexes: 2/4 in all UE and LE Negative Robby's, negative clonus, negative Babinski bilaterally Special Test: Logroll reproduces no groin pain to the bilateral lower extremities - Labs CBC & Chem 7: 07/29/23 06:29 07/28/23 05:21 Labs: Abnormal Lab Results - Last 24 Hours (Table) 07/29/23 Range/Units 06:29 RBC 2.55 L (3.80-5.40) m/uL Hgb 7.7 L (11.4-16.0) gm/dL Hct 23.2 L (34.0-46.0) % Assessment and Plan Assessment: Left sided LC type I pelvic fracture Left thigh contusion Status post fall from standing Anemia A. fib Other medical comorbidities Plan: Plan: Continue conservative measures, physical therapy evaluation, icing of the proxi mal left lower extremity, use of Tylenol and low-dose pain medication. Hemoglobin remained stable, continue to monitor. Continue oral iron twice a day DVT prophylaxis, begin heparin 5000 units every 12 today, okay to start oral anticoagulants as of 08/06/2023 PT and OT evaluation Weight-bear as tolerated, utilize walker Subacute rehab placement, awaiting bed availability Discharge planning: Stable for discharge to rehab today
--- NOTE | 2023-07-29 11:12 | P.DS ---
Providers Date of admission: 07/26/23 02:54 Expected date of discharge: 07/29/23 Attending physician: Sixto Valdez Consults: 07/26/23 02:54 Consult Physician Routine Consulting Provider: Marie Vicente Consult Reason/Comments: medicine consult Do you want consulting provider notified?: Yes Primary care physician: Demetrius Bales MD Hospital Course: Date of admission: 07/26/2023 Date of discharge: 07/29/2023 Admission diagnosis: Left-sided LC type I fracture Discharge diagnosis: Same Attending physician: Dr. Valdez Surgical procedures: None Brief history: Patient is a 83-year-old female who was brought to [facility] on 07/26/2023 after sustaining a fall. After imaging test were done at the hospital, was determined she had a left-sided LC type I fracture. Conservative measures were obtained, this to include protected weightbearing with a walker along with physical therapy evaluation. Internal medicine was able to follow the patient during hospital stay. Hospital course: Patient tolerated the procedure well and was subsequently transported to orthopedic floor. Patient's orthopeidc and medical care was provided daily. Patient had daily laboratory tests performed for evaluation of overall blood counts. Patient had daily physical therapy to include strengthening range of motion as well as education with walker ambulation. Patient was treated with compression stockings for their postoperative DVT prophylaxis during their inpatient stay. Patient does take oral anticoagulants which were held during the hospital stay due to blood loss anemia, subcu medication was started at discharge was planned for 1 week. Given patient's otherwise satisfactory course and having met physical therapy goals, plan is to discharge patient subacute rehab. Discharge condition/disposition: Patient will be discharged subacute rehab in stable condition. Discharge medications: Instructions are given on resumption of patient's normal daily medications per primary care recommendation, in addition patient will be prescribed Tylenol 650 mg, Senokot-S, heparin 5000 unit, ferrous sulfate 325 mg. Discharge instructions: 1. Tylenol as needed for discomfort 2. Utilize heparin 5000 units every 12 for 1 week, located under resume oral anticoagulants 3. Ferrous sulfate 325 mg twice a day for anemia 4. Protected weightbearing, utilize walker 5. Plan for [facility]-up at [facility] 2 weeks Patient Condition at Discharge: Fair Plan - Discharge Summary Discharge Rx Participant: No New Discharge Prescriptions: New Acetaminophen Tab [Tylenol] 650 mg PO Q6H PRN #40 tab PRN Reason: Pain Heparin Sodium,Porcine (1 ml) [Heparin Sodium] 5,000 unit SQ Q12HR #14 each Sennosides/Docusate Sodium [Senna-S 8.6-50 mg Tablet] 2 each PO DAILY PRN #30 tablet PRN Reason: Constipation Ferrous Sulfate [Iron (65 MG Elemental)] 325 mg PO BID #60 tab Discontinued Clopidogrel Bisulfate [Plavix] 75 mg PO DAILY Apixaban [Eliquis] 5 mg PO BID No Action Benazepril HCl 20 mg PO HS Sertraline HCl [Zoloft] 50 mg PO HS Pravastatin Sodium [Pravachol] 80 mg PO HS amLODIPine [Norvasc] 5 mg PO DAILY Discharge Medication List Benazepril HCl 20 mg PO HS 05/01/17 [History] Sertraline HCl [Zoloft] 50 mg PO HS 08/03/19 [History] Pravastatin Sodium [Pravachol] 80 mg PO HS 02/01/23 [History] amLODIPine [Norvasc] 5 mg PO DAILY 07/26/23 [History] Acetaminophen Tab [Tylenol] 650 mg PO Q6H PRN #40 tab 07/29/23 [Rx] Ferrous Sulfate [Iron (65 MG Elemental)] 325 mg PO BID #60 tab 07/29/23 [Rx] Heparin Sodium,Porcine (1 ml) [Heparin Sodium] 5,000 unit SQ Q12HR #14 each 07/29/23 [Rx] Sennosides/Docusate Sodium [Senna-S 8.6-50 mg Tablet] 2 each PO DAILY PRN #30 tablet 07/29/23 [Rx] Follow up Appointment(s)/Referral(s): Demetrius Bales MD [Primary Care Provider] - 1-2 days Sixto Valdez MD [STAFF PHYSICIAN] - 2 Weeks Activity/Diet/Wound Care/Special Instructions: Orthopedic discharge instructions: 1. Protective weightbearing left lower extremity 2. Utilize walker when ambulating 3. Pain medication as needed 4. Utilize subcu medication for DVT prophylaxis for 1 week, okay to resume oral medication as of 08/05/2023 5. Plan for follow-up at [facility] in 2 weeks for recheck DVT prophylaxis: 1. Please utilize heparin 5000 units every 12 for 1 week 2. Okay to resume oral anticoagulants, Plavix and Eliquis on 08/06/2023 Discharge Disposition: TRANSFER TO SNF/ECF
--- NOTE | 2023-07-29 12:50 | P.PN ---
Subjective Progress Note Date: 07/29/23 Hospital course: Patient is a very pleasant 83-year-old female with a past medical history of coronary artery disease, hypertension, hyperlipidemia, paroxysmal atrial fibrillation, and TIA. She is currently admitted under orthopedic surgery team status post mechanical fall resulting in pelvic fractures, nondisplaced rib fractures, and hematoma. We are consulted for medical management throughout patient's hospitalization. Physical exam: Vital signs reviewed and stable. General: Nontoxic, no distress and appears stated age. Derm: Skin warm and dry, normal coloration for ethnicity. Head: Atraumatic, normocephalic and symmetric. Eyes: EOMs intact, no lid lag, and anicteric sclera Mouth: no lip lesions, mucus membranes moist Cardiovascular: regular rate and rhythm with normal S1S2, no murmur, positive posterior tibial pulses bilaterally, and cap refill < 2 seconds. Lungs: Respirations even, regular, and unlabored on room air. Lungs CTA bilaterally, no rhonchi, no rales, no wheezing, and no accessory muscle usage. Abdominal: soft, nontender to palpation, no guarding, no appreciable organomegaly Ext: ROM intact. No gross muscle atrophy, no edema, no contractures Neuro: Speech clear, face symmetrical and CN II-XII grossly intact with no noted focal neuro deficits Psych: Alert and oriented to person, place, time, and situation. Appropriate and pleasant affect. Assessment and Plan of Care: Acute blood loss anemia secondary to large left hematoma resulting from traumatic pelvic fracture Mechanical fall Traumatic pelvic fracture Hypotension, resolved History of hypertension Paroxysmal Atrial fibrillation on anticoagulation Dyslipidemia Depression -CT abdomen and pelvis completed, radiology report stating left muscle wall hematoma appears stable, also has a extraperitoneal hematoma which is also reported stable -Orthopedic surgery discharging patient to extended care facility at this time, recommending treatment with conservative measures only and outpatient follow-up in our office. -Pt was started on oral iron and to be discharged with 30 day prescription, CBC showing a stable hemoglobin of 7.7, continue to hold anticoagulation until cleared to resume by orthopedic surgery team. -Patient to continue daily medication regimen with benazepril 20 mg nightly, amlodipine 5 daily, pravastatin 80 mg nightly, and sertraline 50 mg nightly -Recommend patient resuming Plavix and Eliquis once cleared by orthopedic surgery to resume. -Patient is being discharged to rehab facility today, recommend repeat CBC in 3 days to ensure continued stabilization of hemoglobin levels. Data review: -Morning labs reviewed. CBC showing stable hemoglobin of 7.7 and resolution of thrombocytopenia with platelet count of 158. -Vital signs reviewed. Blood pressure 127/66, heart rate 78, respiratory rate 16, temp 98.3F, SpO2 is 97% on room air. Thank you for allowing us to participate in the care of this pleasant patient. Do not hesitate to contact us with questions. Someone can be reached from the [facility] hospitalist group all hours of the day at [phone] or via [employer]. Patient was seen independently by Nurse Pracitioner. This document was prepared using Perfect [employer] dictation software. Please allow for errors in stained glass joiner, while rare they do occur. Objective - Vital Signs Vital signs: Vital Signs Temp 98.3 F 07/29/23 07:45 Pulse 78 07/29/23 07:45 Resp 16 07/29/23 07:45 BP 127/66 07/29/23 07:45 Pulse Ox 97 07/29/23 07:45 FiO2 Intake & Output 07/28/23 07/29/23 07/29/23 18:59 06:59 18:59 Intake Total 480 Output Total 775 Balance -295 Intake: Oral 480 Output: Urine 775 Uretheral (Gutierrez) 25 Other: Voiding Method Bedside Commode Bedside Commode Bedside Commode # Voids 1 3 - Labs CBC & Chem 7: 07/29/23 06:29 07/28/23 05:21 Labs: Abnormal Lab Results - Last 24 Hours (Table) 07/29/23 Range/Units 06:29 RBC 2.55 L (3.80-5.40) m/uL Hgb 7.7 L (11.4-16.0) gm/dL Hct 23.2 L (34.0-46.0) %
[2023-07-29] MEDS: PRAVASTATIN SODIUM 80 MG TAB PO SCH (20:31)
[2023-07-29] MEDS: lisinopriL 20 MG TAB PO SCH (20:32)
[2023-07-29] MEDS: SERTRALINE 50 MG TAB PO SCH (20:32)
[2023-07-30] MEDS: SODIUM CHLORIDE 0.9% 1,000 ML IV SCH ×3 (01:12→12:37)
[2023-07-30] MEDS: ASCORBIC ACID 500 MG TAB PO SCH (07:57)
[2023-07-30] MEDS: FERROUS SULFATE 325 MG TAB PO SCH ×2 (07:57→17:46)
[2023-07-30] MEDS: amLODIPine 5 MG TAB PO SCH (07:57)
[2023-07-30] MEDS: ACETAMINOPHEN TAB 325 MG TAB PO PRN (07:57)
[2023-07-30 10:40] LABS: Basophils % (A) 0 %; Eosinophils # (A) 0.1 k/uL (0-0.7); Eosinophils % (A) 2 %; HCT 23.9 % (34.0-46.0); HGB 7.8 gm/dL (11.4-16.0); Lymphocytes # (A) 1.1 k/uL (1.0-4.8); Lymphocytes % (A) 15 %; MCH 29.9 pg (25.0-35.0); MCHC 32.9 g/dL (31.0-37.0); Mean Platelet Volume 8.8; Monocytes # (A) 0.4 k/uL (0-1.0); Monocytes % (A) 6 %; Neutrophils # (A) 5.4 k/uL (1.3-7.7); Neutrophils % (A) 75 %; Platelet Count 201 k/uL (150-450); RBC 2.62 m/uL (3.80-5.40); RDW 15.3 % (11.5-15.5); WBC 7.2 k/uL (3.8-10.6)
--- NOTE | 2023-07-30 12:29 | P.PN ---
Subjective Progress Note Date: 07/30/23 Principal diagnosis: left-sided pelvic fracture Patient evaluated at bedside, discharged to rehab did not happen yesterday due to bed availability. Patient remained stable with no no orthopedic complaints. Objective - Vital Signs Vital signs: Vital Signs Temp 98.3 F 07/30/23 11:45 Pulse 59 L 07/30/23 11:45 Resp 16 07/30/23 11:45 BP 133/66 07/30/23 11:45 Pulse Ox 96 07/30/23 11:45 FiO2 Intake & Output 07/29/23 07/30/23 07/30/23 18:59 06:59 18:59 Other: Voiding Method Bedside Commode Bedside Commode Bedside Commode # Voids 2 3 # Bowel Movements 1 1 - Exam Gen: AOx3, NAD VSS stable at this time Integument: No obvious open lesions, sores, areas of erythema in the cervical, thoracic or lumbar region. There is some bruising noted on the lateral thigh on the left- hand side, there is some mild soft tissue swelling present. No open lesions or sores are visualized throughout bilateral upper or lower extremities Palpation: No tenderness with palpation throughout the cervical, thoracic or lumbar spine both midline and paraspinal. No point tenderness is appreciated throughout the bilateral upper and lower extremities and right lower extremity. She does demonstrate some soreness with palpation in the area swelling on the lateral proximal thigh ROM: Full range of motion in all major muscle groups of the bilateral upper extremities, no focal deficits. Full range of motion in right lower extremity, no focal deficits Range of motion in left lower extremity is difficult due to pain, especially with hip flexion. Patient is able to flex and extend the knee along with plantar flexion, dorsiflexion, EHL, FHL with minimal difficulty Sensory Exam: Senory exam to light touch is intact C5-T1 Senosry exam to light touch is intact L2-S1 Motor: 4+/5 strength appreciated in the bilateral upper extremities with shoulder elevation, shoulder abduction, elbow extension, elbow flexion, wrist extension, wrist flexion, hooker up 4+/5 strength admission the right lower extremity with hip flexion, knee extension, knee flexion, plantar flexion, dorsiflexion, EHL, FHL 4+/5 strength the patient the left lower extremity with knee extension, knee flexion, plantar flexion, dorsiflexion, EHL, FHL, strength is slightly diminished with hip flexion due to pain reproduced Reflexes: 2/4 in all UE and LE Negative Robby's, negative clonus, negative Babinski bilaterally Special Test: Logroll reproduces no groin pain to the bilateral lower extremities - Labs CBC & Chem 7: 07/30/23 10:24 07/28/23 05:21 Labs: Abnormal Lab Results - Last 24 Hours (Table) 07/30/23 Range/Units 10:24 RBC 2.62 L (3.80-5.40) m/uL Hgb 7.8 L (11.4-16.0) gm/dL Hct 23.9 L (34.0-46.0) % Assessment and Plan Assessment: Left sided LC type I pelvic fracture Left thigh contusion Status post fall from standing Anemia A. fib Other medical comorbidities Plan: Plan: Continue conservative measures, physical therapy evaluation, icing of the proximal left lower extremity, use of Tylenol and low-dose pain medication. Hemoglobin remained stable, continue current treatment DVT prophylaxis, start heparin 5000 units every 12 today PT and OT evaluation Weight-bear as tolerated, utilize walker Discharge planning: Discharge to rehab on 07/31/2023 pending bed availability
--- NOTE | 2023-07-30 15:33 | P.PN ---
Subjective Progress Note Date: 07/30/23 Hospital course: Patient is a very pleasant 83-year-old female with a past medical history of coronary artery disease, hypertension, hyperlipidemia, paroxysmal atrial fibrillation, and TIA. She is currently admitted under orthopedic surgery team status post mechanical fall resulting in pelvic fractures, nondisplaced rib fractures, and hematoma. We are consulted for medical management throughout patient's hospitalization. Physical exam: Patient seen and fully evaluated at bedside this morning. She was sitting up in the chair. She reports she did have improvement and was able to take a couple more steps this morning. Patient reports pain with movement but does report that it has been improving just a bit each day. Vital signs reviewed and stable. General: Nontoxic, no distress and appears stated age. Frail, thin build. Derm: Skin warm and dry, normal coloration for ethnicity. Extensive Large hematoma left lateral hip and thigh Head: Atraumatic, normocephalic and symmetric. Eyes: EOMs intact, no lid lag, and anicteric sclera Mouth: no lip lesions, mucus membranes moist Cardiovascular: regular rate and rhythm with normal S1S2, systolic murmur, positive posterior tibial pulses bilaterally, and cap refill < 2 seconds. Lungs: Respirations even, regular, and unlabored on room air. Lungs CTA bilaterally, no rhonchi, no rales, no wheezing, and no accessory muscle usage. Abdominal: soft, nontender to palpation, no guarding, no appreciable organomegaly Ext: ROM intact. No gross muscle atrophy, no edema, no contractures Neuro: Speech clear, face symmetrical and CN II-XII grossly intact with no noted focal neuro deficits Psych: Alert and oriented to person, place, time, and situation. Appropriate and pleasant affect. Assessment and Plan of Care: Acute blood loss anemia secondary to large left hematoma resulting from traumatic pelvic fracture Mechanical fall Traumatic pelvic fracture Hypotension, resolved History of hypertension Paroxysmal Atrial fibrillation on anticoagulation Dyslipidemia Depression -CT abdomen and pelvis completed, radiology report stating left muscle wall hematoma appears stable, also has a extraperitoneal hematoma which is also reported stable -Orthopedic surgery discharging patient to extended care facility at this time, recommending treatment with conservative measures only and outpatient follow-up in our office. -Pt was started on oral iron and to be discharged with 30 day prescription, CBC showing a stable hemoglobin of 7.7, continue to hold anticoagulation until cleared to resume by orthopedic surgery team. -Patient to continue daily medication regimen with benazepril 20 mg nightly, amlodipine 5 daily, pravastatin 80 mg nightly, and sertraline 50 mg nightly -Recommend patient resuming Plavix and Eliquis once cleared by orthopedic surgery to resume. -Patient is medically cleared for discharge to rehab facility ein orthopedic surgery team has placed discharge, however RN reports accepting facility did not have available beds this weekend. Patient to be discharged to SNF on Monday07/31/23. Recommend repeat CBC in 3 days to ensure continued stabilization of hemoglobin levels. Data review: -Morning labs reviewed. CBC showing stable hemoglobin of 7.8 and resolution of thrombocytopenia with platelet count of 201. -Vital signs reviewed. Blood pressure 148/69, heart rate 57, respiratory rate 16, temp 98.1F, and SpO2 of 97% on room air. Thank you for allowing us to participate in the care of this pleasant patient. Do not hesitate to contact us with questions. Someone can be reached from the [facility] hospitalist group all hours of the day at [phone] or via perfect serve. Patient was seen independently by Nurse Pracitioner. This document was prepared using [employer] dictation software. Please allow for errors in rocket motor tester, while rare they do occur.Patient seen and fully evaluated at bedside this morning. She was sitting up in the chair. She does report Objective - Vital Signs Vital signs: Vital Signs Temp 98.1 F 07/30/23 07:42 Pulse 57 L 07/30/23 07:42 Resp 16 07/30/23 07:42 BP 148/69 07/30/23 07:42 Pulse Ox 97 07/30/23 07:42 FiO2 Intake & Output 07/29/23 07/30/23 07/30/23 18:59 06:59 18:59 Other: Voiding Method Bedside Commode Bedside Commode Bedside Commode # Voids 2 3 # Bowel Movements 1 1 - Labs CBC & Chem 7: 07/30/23 10:24 07/28/23 05:21
[2023-07-30] MEDS: HEPARIN SODIUM,PORCINE 5,000 UNIT/ML 1 ML VIAL SQ SCH (20:22)
[2023-07-30] MEDS: lisinopriL 20 MG TAB PO SCH (20:22)
[2023-07-30] MEDS: SERTRALINE 50 MG TAB PO SCH (20:22)
[2023-07-30] MEDS: PRAVASTATIN SODIUM 80 MG TAB PO SCH (20:22)
[2023-07-31] MEDS: SODIUM CHLORIDE 0.9% 1,000 ML IV SCH ×2 (02:04→02:18)
[2023-07-31] MEDS: ACETAMINOPHEN TAB 325 MG TAB PO PRN (08:22)
[2023-07-31] MEDS: amLODIPine 5 MG TAB PO SCH (08:23)
[2023-07-31] MEDS: ASCORBIC ACID 500 MG TAB PO SCH (08:23)
[2023-07-31] MEDS: HEPARIN SODIUM,PORCINE 5,000 UNIT/ML 1 ML VIAL SQ SCH (08:23)
[2023-07-31] MEDS: FERROUS SULFATE 325 MG TAB PO SCH (08:23)
[2023-07-31 12:24] VITALS: BP 142/57; PULSE 79; RESP 17; TEMP 97.6
--- NOTE | 2023-07-31 14:13 | P.PN ---
Subjective Progress Note Date: 07/31/23 Principal diagnosis: left-sided pelvic fracture Patient evaluated at bedside, patient is doing well. Patient remained stable with no no orthopedic complaints. Objective - Vital Signs Vital signs: Vital Signs Temp 97.6 F 07/31/23 12:04 Pulse 79 07/31/23 12:04 Resp 17 07/31/23 12:04 BP 142/57 07/31/23 12:04 Pulse Ox 99 07/31/23 12:04 FiO2 Intake & Output 07/30/23 07/31/23 07/31/23 18:59 06:59 18:59 Other: Voiding Method Bedside Commode Bedside Commode Bedside Commode # Voids 2 2 # Bowel Movements 1 - Exam Gen: AOx3, NAD VSS stable at this time Integument: No obvious open lesions, sores, areas of erythema in the cervical, thoracic or lumbar region. There is some bruising noted on the lateral thigh on the left- hand side, there is some mild soft tissue swelling present. No open lesions or sores are visualized throughout bilateral upper or lower extremities Palpation: No tenderness with palpation throughout the cervical, thoracic or lumbar spine both midline and paraspinal. No point tenderness is appreciated throughout the bilateral upper and lower extremities and right lower extremity. She does demo nstrate some soreness with palpation in the area swelling on the lateral proximal thigh ROM: Full range of motion in all major muscle groups of the bilateral upper extremities, no focal deficits. Full range of motion in right lower extremity, no focal deficits Range of motion in left lower extremity is difficult due to pain, especially with hip flexion. Patient is able to flex and extend the knee along with plantar flexion, dorsiflexion, EHL, FHL with minimal difficulty Sensory Exam: Senory exam to light touch is intact C5-T1 Senosry exam to light touch is intact L2-S1 Motor: 4+/5 strength appreciated in the bilateral upper extremities with shoulder elevation, shoulder abduction, elbow extension, elbow flexion, wrist extension, wrist flexion, manufacturer's service representative 4+/5 strength admission the right lower extremity with hip flexion, knee extension, knee flexion, plantar flexion, dorsiflexion, EHL, FHL 4+/5 strength the patient the left lower extremity with knee extension, knee flexion, plantar flexion, dorsiflexion, EHL, FHL, strength is slightly diminished with hip flexion due to pain reproduced Reflexes: 2/4 in all UE and LE Negative Robby's, negative clonus, negative Babinski bilaterally Special Test: Logroll reproduces no groin pain to the bilateral lower extremities - Labs CBC & Chem 7: 07/30/23 10:24 07/28/23 05:21 Assessment and Plan Assessment: Left sided LC type I pelvic fracture Left thigh contusion Status post fall from standing Anemia A. fib Other medical comorbidities Plan: Plan: Continue conservative measures, physical therapy evaluation, icing of the proximal left lower extremity, use of Tylenol and low-dose pain medication. Hemoglobin remained stable, continue current treatment DVT prophylaxis, start heparin 5000 units every 12 today PT and OT evaluation Weight-bear as tolerated, utilize walker Discharge planning: Discharge to rehab on 07/31/2023 pending bed availability Time with Patient: Less than 30
--- NOTE | 2023-07-31 16:14 | P.PN ---
Subjective Progress Note Date: 07/31/23 Hospital course: Patient is a very pleasant 83-year-old female with a past medical history of coronary artery disease, hypertension, hyperlipidemia, paroxysmal atrial fibrillation, and TIA. She is currently admitted under orthopedic surgery team status post mechanical fall resulting in pelvic fractures, nondisplaced rib fractures, and hematoma. We are consulted for medical management throughout patient's hospitalization. Physical exam: Patient seen and fully evaluated at bedside this morning, patient denied any complaints or concerns. Patient to be discharged to [facility] later today. Vital signs reviewed and stable. General: Nontoxic, no distress and appears stated age. Frail, thin build. Derm: Skin warm and dry, normal coloration for ethnicity. Extensive Large hematoma left lateral hip and thigh Head: Atraumatic, normocephalic and symmetric. Eyes: EOMs intact, no lid lag, and anicteric sclera Mouth: no lip lesions, mucus membranes moist Cardiovascular: regular rate and rhythm with normal S1S2, systolic murmur, positive posterior tibial pulses bilaterally, and cap refill < 2 seconds. Lungs: Respirations even, regular, and unlabored on room air. Lungs CTA bilaterally, no rhonchi, no rales, no wheezing, and no accessory muscle usage. Abdominal: soft, nontender to palpation, no guarding, no appreciable organomegaly Ext: ROM intact. No gross muscle atrophy, no edema, no contractures Neuro: Speech clear, face symmetrical and CN II-XII grossly intact with no noted focal neuro deficits Psych: Alert and oriented to person, place, time, and situation. Appropriate and pleasant affect. Assessment and Plan of Care: Acute blood loss anemia secondary to large left hematoma resulting from traumatic pelvic fracture Mechanical fall Traumatic pelvic fracture Hypotension, resolved History of hypertension Paroxysmal Atrial fibrillation on anticoagulation Dyslipidemia Depression -CT abdomen and pelvis completed, radiology report stating left muscle wall hematoma appears stable, also has a extraperitoneal hematoma which is also reported stable -Orthopedic surgery discharging patient to extended care facility at this time, recommending treatment with conservative measures only and outpatient follow-up in their office. -Pt was started on oral iron and to be discharged with 30 day prescription, CBC showing a stable hemoglobin of 7.8 and platelet count of 201 at time of discharge, continue to hold anticoagulation until cleared to resume by orth opedic surgery team. -Patient to continue daily medication regimen with benazepril 20 mg nightly, am lodipine 5 daily, pravastatin 80 mg nightly, and sertraline 50 mg nightly -Recommend patient resuming Plavix and Eliquis once cleared by orthopedic surgery to resume. -Patient is medically cleared for discharge to rehab facility and orthopedic surgery team has placed discharge, Patient to be discharged to SNF and Recommend repeat CBC in 3 days to ensure continued stabilization of hemoglobin levels. Data review: -Vital signs reviewed. Blood pressure 151/63, heart rate 72, respiratory rate 16, temp 98.6F, SpO2 of 94% on room air. Thank you for allowing us to participate in the care of this pleasant patient. Do not hesitate to contact us with questions. Someone can be reached from the [facility] hospitalist group all hours of the day at [phone] or via [email or web address]. Patient was seen independently by Nurse Pracitioner. This document was prepared using [employer] dictation software. Please allow for errors in molding plasterer, while rare they do occur.Patient seen and fully evaluated at bedside this morning. She was sitting up in the chair. She does report Objective - Vital Signs Vital signs: Vital Signs Temp 98.6 F 07/31/23 07:25 Pulse 72 07/31/23 07:25 Resp 16 07/31/23 07:25 BP 151/63 07/31/23 07:25 Pulse Ox 94 L 07/31/23 07:25 FiO2 Intake & Output 07/30/23 07/31/23 07/31/23 18:59 06:59 18:59 Other: Voiding Method Bedside Commode Bedside Commode # Voids 2 2 # Bowel Movements 1 - Labs CBC & Chem 7: 07/30/23 10:24 07/28/23 05:21 Labs: Abnormal Lab Results - Last 24 Hours (Table) 07/30/23 Range/Units 10:24 RBC 2.62 L (3.80-5.40) m/uL Hgb 7.8 L (11.4-16.0) gm/dL Hct 23.9 L (34.0-46.0) %
== END 2023-07-31 16:19 | DRG 536 ==
LOC: EC 00:18 → 5NMEDONC 02:54
PROVIDERS: ADMIT Orthopaedic Surgery; ATTEND Orthopaedic Surgery
DX: S32.592A Other specified fracture of left pubis, initial encounter for closed fracture (principal); S32.10XA Unspecified fracture of sacrum, initial encounter for closed fracture; D62 Acute posthemorrhagic anemia; S70.12XA Contusion of left thigh, initial encounter; W10.9XXA Fall (on) (from) unspecified stairs and steps, initial encounter; I48.0 Paroxysmal atrial fibrillation; E78.5 Hyperlipidemia, unspecified; I10 Essential (primary) hypertension; I95.9 Hypotension, unspecified; J30.2 Other seasonal allergic rhinitis; G43.909 Migraine, unspecified, not intractable, without status migrainosus; I83.90 Asymptomatic varicose veins of unspecified lower extremity; K21.9 Gastro-esophageal reflux disease without esophagitis; M19.90 Unspecified osteoarthritis, unspecified site; F32.A Depression, unspecified; Z79.01 Long term (current) use of anticoagulants; I25.10 Atherosclerotic heart disease of native coronary artery without angina pectoris; Z86.73 Personal history of transient ischemic attack (TIA), and cerebral infarction without residual deficits; Z79.899 Other long term (current) drug therapy; Z79.02 Long term (current) use of antithrombotics/antiplatelets; Z82.49 Family history of ischemic heart disease and other diseases of the circulatory system; Z90.710 Acquired absence of both cervix and uterus
CPT/HCPCS: 36415; 70450; 71045; 71250; 72125; 72170; 72192; 74176; 80048; 80053; 80306; 80320; 83605; 83735; 84484; 85025; 85027; 85610; 85730; 86850; 86900; 86901; 93005; 94760; 96361; 96374; 96376; 99285

== ENCOUNTER 2024-02-06 17:28 | Emergency (ER) | payer MEDICARE, BC ==
--- NOTE | 2024-02-06 17:41 | ED ---
General Adult HPI - General Source: patient Mode of arrival: ambulatory Limitations: no limitations <Anastasia Ho - Last Filed: 02/06/24 17:39> <Luis Eduardo Daigle - Last Filed: 02/06/24 21:57> - General Stated complaint: ABN EKG Time Seen by Provider: 02/06/24 17:39 - History of Present Illness Initial comments: 83 year old female presents to the emergency department for evaluation of abnormal EKG. Patient states that she was seen at the clinic today and was told to come in for further evaluation of abnormal EKG. She denies chest pain. Admits to some shortness of breath with exertion. (Anastasia Ho) Chief Complaint: 83-year-old female sent in from primary care physician's office for bradycardia History of Present Illness: Patient is 83-year-old female she presents to the emergency department for after being seen by medical provider at primary care physician's office. She was seen there for approximately 2 months of weakness and exertional dyspnea. She had an EKG performed there was found to be bradyc ardic in the 50s. She was told that she should come to the emergency room. Patient states that she feels like her symptoms have been ongoing for the last 2 months after having been resumed on metoprolol by her outside sales account executive. She does have history of atrial fibrillation. She reports that she is on all the medications for A-fib which is currently managed by her outside sales account executive. The ROS documented in this emergency department record has been reviewed and confirmed by me. Those systems with pertinent positive or negative responses have been documented in the HPI. All other systems are other negative and/or noncontributory. (Luis Eduardo Daigle) - Related Data Home Medications Medication Instructions Recorded Confirmed Benazepril HCl 20 mg PO HS 05/01/17 07/26/23 Sertraline HCl [Zoloft] 50 mg PO HS 08/03/19 07/26/23 Pravastatin Sodium [Pravachol] 80 mg PO HS 02/01/23 07/26/23 amLODIPine [Norvasc] 5 mg PO DAILY 07/26/23 07/26/23 Previous Rx's Medication Instructions Recorded Acetaminophen Tab [Tylenol] 650 mg PO Q6H PRN #40 tab 07/29/23 Ascorbic Acid [Vitamin C] 250 mg PO DAILY tab 07/29/23 Ferrous Sulfate [Iron (65 MG 325 mg PO BID #60 tab 07/29/23 Elemental)] Heparin Sodium,Porcine (1 ml) 5,000 unit SQ Q12HR #14 each 07/29/23 [Heparin Sodium] Sennosides/Docusate Sodium 2 each PO DAILY PRN #30 tablet 07/29/23 [Senna-S 8.6-50 mg Tablet] Allergies Allergy/AdvReac Type Severity Reaction Status Date / Time No Known Allergies Allergy Verified 07/26/23 07:02 Review of Systems ROS Other: All systems not noted in ROS Statement are negative. <Anastasia Ho - Last Filed: 02/06/24 17:39> ROS Other: All systems not noted in ROS Statement are negative. <Luis Eduardo Daigle - Last Filed: 02/06/24 21:57> ROS Statement: Those systems with pertinent positive or pertinent negative responses have been documented in the HPI. Past Medical History Past Medical History: Atrial Fibrillation, Cancer, Chest Pain / Angina, CVA/TIA, GERD/Reflux, Hyperlipidemia, Hypertension, Osteoarthritis (OA) Additional Past Medical History / Comment(s): past migraines, tia 2005-no residual effects, a-fib for last few years per pt, varicose veins, seasonal allergies/sinus problems, hiatal hernia, recent adm to [facility] w/hematuria, Bladder cancer discovered 03/16/2023 History of Any Multi-Drug Resistant Organisms: None Reported Past Surgical History: Bladder Surgery, Cholecystectomy, Heart Catheterization, Hysterectomy, Tonsillectomy Additional Past Surgical History / Comment(s): cataracts, egd/colonoscopy, bladder suspension 03/16/23 Past Anesthesia/Blood Transfusion Reactions: No Reported Reaction, Family History of Problems w/ Anesthesia Additional Past Anesthesia/Blood Transfusion Reaction / Comment(s): sister had knee surg., trouble waking up, ended up having stroke Past Psychological History: No Psychological Hx Reported Smoking Status: Never smoker Past Alcohol Use History: None Reported Past Drug Use History: None Reported - Past Family History Father Family Medical History: Coronary Artery Disease (CAD) Additional Family Medical History / Comment(s): heart problems Mother Additional Family Medical History / Comment(s): "blood disorder"too many wbc's, but not leukemia" <Anastasia Ho - Last Filed: 02/06/24 17:39> General Exam <Anastasia Ho - Last Filed: 02/06/24 17:39> <Luis Eduardo Daigle - Last Filed: 02/06/24 21:57> - General Exam Comments Initial Comments: Visual Physical Exam Vital signs reviewed General: Well-appearing, nontoxic, no acute distress. Head: Normocephalic, atraumatic Eyes: PERRLA, EOMI ENT: Airway patent Chest: Nonlabored breathing Skin: No visual rash, normal skin tone Neuro: Alert and oriented 3 Musculoskeletal: No gross abnormalities (Anastasia Ho) PHYSICAL EXAM: General Impression: Alert and oriented x3, not in acute distress HEENT: Normocephalic atraumatic, extra-ocular movements intact, pupils equal and reactive to light bilaterally, mucous membranes moist. Cardiovascular: Heart regular rate and rhythm Chest: Able to complete full sentences, no retractions, no tachypnea Abdomen: abdomen soft, non-tender, non-distended, no organomegaly Musculoskeletal: Pulses present and equal in all extremities, no peripheral edema Motor: no focal deficits noted Neurological: CN II-XII grossly intact, no focal motor or sensory deficits noted Skin: Intact with no visualized rashes Psych: Normal affect and mood (Luis Eduardo Daigle) Course Vital Signs 02/06/24 02/06/24 17:40 21:30 Temperature 97.4 F L Pulse Rate 60 64 Respiratory 16 18 Rate Blood Pressure 168/76 122/83 O2 Sat by Pulse 99 98 Oximetry EKG Findings - EKG Comments: EKG Findings:: My EKG interpretation: Ventricular rate 60, sinus rhythm, GA interval 256, cures 92, QTc 419. No GA prolongation, no QTC prolongation, no ST or T-wave changes noted. Overall, this EKG is unremarkable <Luis Eduardo Daigle - Last Filed: 02/06/24 21:57> Medical Decision Making <Anastasia Ho - Last Filed: 02/06/24 17:39> - Lab Data Result diagrams: 02/06/24 17:53 02/06/24 17:53 <Luis Eduardo Daigle - Last Filed: 02/06/24 21:57> - Medical Decision Making Quick note preformed and electronically signed by Anastasia Ho PA-C (Anastasia Ho) Was pt. sent in by a medical professional or institution ([facility] Landis, FAMILY SERVICE ASSISTANT, urgent care, hospital, or group home...) When possible be specific @ -Sent in from primary care physician's office Did you speak to anyone other than the patient for history (EMS, parent, family, police, friend...)? What history was obtained from this source @ -No Did you review nursing and triage notes (agree or disagree)? Why? @ -I reviewed and agree with nursing and triage notes Were old charts reviewed (outside hosp., previous admission, EMS record, old EKG, old radiological studies, urgent care reports/EKG's, group home records)? Report findings @ -EKG from primary care physician's office showed sinus bradycardia with a ra te of 53 Differential Diagnosis (chest pain, altered mental status, abdominal pain women, abdominal pain men, vaginal bleeding, musculoskeletal, weakness, fever, dyspnea, syncope, headache, dizziness, GI bleed, back pain, seizure, CVA, palpatations, mental health)? @ -Differential Dyspnea: Coronary syndrome, arrhythmia, tamponade, asthma, COPD, pulmonary embolism, pneumonia, pneumothorax, pulmonary effusion, anaphylaxis, diabetic ketoacidosis, flailed chest, pulmonary contusion, diaphragmatic rupture, anemia, neuromuscular, this is not meant to be an all-inclusive list. EKG interpreted by me (3pts min.). @ -None done X-rays interpreted by me (1pt min.). @ -None done CT interpreted by me (1pt min.). @ -None done U/S interpreted by me (1pt. min.). @ -None done What testing was considered but not performed or refused? (CT, X-rays, U/S, labs)? Why? @ -None What meds were considered but not given or refused? Why? @ -None Did you discuss the management of the patient with other professionals (professionals i.e. NANDO Landis, FAMILY SERVICE ASSISTANT, lab, RT, psych nurse, social work lecturer, m1a1 tank crewman, teacher, community chest officer, case assembler)? Give summary @ -No Was smoking cessation discussed for >3mins.? @ -No Was critical care preformed (if so, how long)? @ -No Were there social determinants of health that impacted care today? How? (Homelessness, low income, unemployed, alcoholism, drug addiction, transp ortation, low edu. Level, literacy, decrease access to med. care, [facility], rehab)? @ -No Was there de-escalation of care discussed even if they declined (Discuss DNR or withdrawal of care, Hospice)? DNR status @ -No What co-morbidities impacted this encounter? (DM, HTN, Smoking, COPD, CAD, Cancer, CVA, ARF, Chemo, Hep., AIDS, mental health diagnosis, sleep apnea, morbid obesity)? @ -None Was patient admitted / discharged? Hospital course, mention meds given and route, prescriptions, significant lab abnormalities, going to OR and other pertinent info. @ -70-year-old female presents to the emergency department for chronic dyspnea and weakness. Vital signs upon arrival are within acceptable limits. Patient well-appearing at the bedside. She has no acute complaints. EKG was reviewed from primary care physician's office she did not seem concerning. Repeat EKG here appear to be within acceptable limits. Labs are unremarkable. Troponin is negative. Disposition options were discussed with patient she was offered observation admission for cardiology evaluation. Patient refused and would rather sleep in her own bed and go home tonight call cardiology for Lynne in the morning. Patient at this time has no high risk features. return precautions discussed. Patient told to pause her metoprolol until further instruction from cardiology or outpatient physicians. Undiagnosed new problem with uncertain prognosis? @ -No Drug Therapy requiring intensive monitoring for toxicity (Heparin, Nitro, Insulin, Cardizem)? @ -No Were any procedures done? @ -No Diagnosis/symptom? Acute, or Chronic, or Acute on Chronic? Uncomplicated (without systemic symptoms) or Complicated (systemic symptoms)? @ -Bradycardia Side effects of treatment? @ -No Exacerbation, Progression, or Severe Exacerbation? @ -No Poses a threat to life or bodily function? How? (Chest pain, USA, DC, pneumonia, PE, COPD, DKA, ARF, appy, cholecystitis, CVA, Diverticulitis, Homicidal, Suicidal, threat to staff... and all critical care pts) @ -No (Luis Eduardo Daigle) - Lab Data Lab Results 02/06/24 02/06/24 02/06/24 Range/Units 17:53 17:53 17:53 WBC 6.2 (3.8-10.6) k/uL RBC 4.16 (3.80-5.40) m/uL Hgb 12.5 (11.4-16.0) gm/dL Hct 38.2 (34.0-46.0) % MCV 91.8 (80.0-100.0) fL MCH 29.9 (25.0-35.0) pg MCHC 32.6 (31.0-37.0) g/dL RDW 14.4 (11.5-15.5) % Plt Count 222 (150-450) k/uL MPV 8.1 Neutrophils % 55 % Lymphocytes % 33 % Monocytes % 6 % Eosinophils % 3 % Basophils % 1 % Neutrophils # 3.4 (1.3-7.7) k/uL Lymphocytes # 2.1 (1.0-4.8) k/uL Monocytes # 0.4 (0-1.0) k/uL Eosinophils # 0.2 (0-0.7) k/uL Basophils # 0.1 (0-0.2) k/uL PT 12.6 H (10.0-12.5) sec INR 1.2 H (<1.2) APTT 26.4 (22.0-30.0) sec Sodium 138 (137-145) mmol/L Potassium 4.0 (3.5-5.1) mmol/L Chloride 106 (98-107) mmol/L Carbon Dioxide 25 (22-30) mmol/L Anion Gap 7 mmol/L BUN 31 H (7-17) mg/dL Creatinine 0.93 (0.52-1.04) mg/dL Est GFR (CKD-EPI)AfAm 66 (>60 ml/min/1.73 sqM) Est GFR (CKD-EPI)NonAf 57 (>60 ml/min/1.73 sqM) Glucose 120 H (74-99) mg/dL Calcium 10.1 (8.4-10.2) mg/dL Total Bilirubin 0.5 (0.2-1.3) mg/dL AST 26 (14-36) U/L ALT 16 (4-34) U/L Alkaline Phosphatase 90 (38-126) U/L Troponin I (0.000-0.034) ng/mL Total Protein 7.3 (6.3-8.2) g/dL Albumin 4.1 (3.5-5.0) g/dL 02/06/24 Range/Units 17:53 WBC (3.8-10.6) k/uL RBC (3.80-5.40) m/uL Hgb (11.4-16.0) gm/dL Hct (34.0-46.0) % MCV (80.0-100.0) fL MCH (25.0-35.0) pg MCHC (31.0-37.0) g/dL RDW (11.5-15.5) % Plt Count (150-450) k/uL MPV Neutrophils % % Lymphocytes % % Monocytes % % Eosinophils % % Basophils % % Neutrophils # (1.3-7.7) k/uL Lymphocytes # (1.0-4.8) k/uL Monocytes # (0-1.0) k/uL Eosinophils # (0-0.7) k/uL Basophils # (0-0.2) k/uL PT (10.0-12.5) sec INR (<1.2) APTT (22.0-30.0) sec Sodium (137-145) mmol/L Potassium (3.5-5.1) mmol/L Chloride (98-107) mmol/L Carbon Dioxide (22-30) mmol/L Anion Gap mmol/L BUN (7-17) mg/dL Creatinine (0.52-1.04) mg/dL Est GFR (CKD-EPI)AfAm (>60 ml/min/1.73 sqM) Est GFR (CKD-EPI)NonAf (>60 ml/min/1.73 sqM) Glucose (74-99) mg/dL Calcium (8.4-10.2) mg/dL Total Bilirubin (0.2-1.3) mg/dL AST (14-36) U/L ALT (4-34) U/L Alkaline Phosphatase (38-126) U/L Troponin I <0.012 (0.000-0.034) ng/mL Total Protein (6.3-8.2) g/dL Albumin (3.5-5.0) g/dL Disposition <Anastasia Ho - Last Filed: 02/06/24 17:39> Is patient prescribed a controlled substance at d/c from ED?: No <Luis Eduardo Daigle - Last Filed: 02/06/24 21:57> Clinical Impression: Bradycardia Disposition: HOME SELF-CARE Condition: Fair Instructions (If sedation given, give patient instructions): Bradycardia (ED) Referrals: Demetrius Bales MD [Primary Care Provider] - 1-2 days
[2024-02-06 17:42] VITALS: TEMP 97.4
[2024-02-06 18:06] LABS: Basophils # (A) 0.1 k/uL (0-0.2); Basophils % (A) 1 %; Eosinophils # (A) 0.2 k/uL (0-0.7); Eosinophils % (A) 3 %; HCT 38.2 % (34.0-46.0); HGB 12.5 gm/dL (11.4-16.0); Lymphocytes # (A) 2.1 k/uL (1.0-4.8); Lymphocytes % (A) 33 %; MCH 29.9 pg (25.0-35.0); MCHC 32.6 g/dL (31.0-37.0); MCV 91.8 fL (80.0-100.0); Mean Platelet Volume 8.1; Monocytes # (A) 0.4 k/uL (0-1.0); Monocytes % (A) 6 %; Neutrophils # (A) 3.4 k/uL (1.3-7.7); Neutrophils % (A) 55 %; Platelet Count 222 k/uL (150-450); RBC 4.16 m/uL (3.80-5.40); RDW 14.4 % (11.5-15.5); WBC 6.2 k/uL (3.8-10.6)
[2024-02-06 18:15] LABS: INR 1.2 (<1.2); Partial Thromboplastin Time 26.4 sec (22.0-30.0); Prothrombin Time 12.6 sec (10.0-12.5)
[2024-02-06 18:36] LABS: ALT 16 U/L (4-34); AST 26 U/L (14-36); African American GFR (CKD) 66 (>60 ml/min/1.73 sqM); Albumin 4.1 g/dL (3.5-5.0); Alkaline Phosphatase 90 U/L (38-126); Anion Gap 7 mmol/L; Blood Urea Nitrogen 31 mg/dL (7-17); Calcium 10.1 mg/dL (8.4-10.2); Carbon Dioxide 25 mmol/L (22-30); Chloride 106 mmol/L (98-107); Glucose 120 mg/dL (74-99); Non-African American GFR(CKD) 57 (>60 ml/min/1.73 sqM); Sodium 138 mmol/L (137-145); Total Bilirubin 0.5 mg/dL (0.2-1.3); Total Protein 7.3 g/dL (6.3-8.2)
--- NOTE | 2024-02-06 19:59 | XR ---
EXAMINATION TYPE: XR chest 2V DATE OF EXAM: 02/06/2024 6:08 PM CLINICAL INDICATION:Female, 83 years old with history of difficulty breathing; [facility] COMPARISON: 07/26/2023 TECHNIQUE: XR chest 2V. Frontal and lateral views of the chest.. FINDINGS: Lines/Tubes/Devices: No indwelling lines are seen. Heart/mediastinum: Heart size upper normal. Mildly tortuous aorta with atherosclerotic calcification . Pulmonary vascularity: Not increased, Lungs/Pleura: Lungs are hyperinflated with relative lucency and coarsening of the interstitium sugges tive of COPD changes. Nodular opacity towards the right lung base on frontal view without definite lo calization on lateral. No consolidation, effusion, pneumothorax. Musculoskeletal: Generalized osteopenia and mild/moderate degenerative changes. No acute bony abnorma lity. Other findings: None. IMPRESSION: 1. Changes of COPD/emphysema suggested, without evidence of acute superimposed airspace disease. 2. Nodular density over the right lower lobe on the frontal view, may represent nipple shadow or ove rlying structure versus true pulmonary nodule. Consider repeat chest x-ray with nipple markers in malvin ce, versus outpatient CT chest.
[2024-02-06 21:54] VITALS: BP 122/83; PULSE 64; RESP 18
== END 2024-02-06 21:30 | disposition home or self-care (01) ==
LOC: EC 17:28
DX: I44.0 Atrioventricular block, first degree (principal)
CPT/HCPCS: 36415; 71046; 80053; 83880; 84484; 85025; 85610; 85730; 93005; 99284

== ENCOUNTER → 2024-04-26 | Outpatient (CLI) | payer MEDICARE, BC ==
--- NOTE | 2024-04-28 17:37 | US ---
EXAMINATION TYPE: US kidneys/renal and bladder DATE OF EXAM: 04/26/2024 COMPARISON: CT abdomen pelvis 07/28/2023 CLINICAL INDICATION: Female, 83 years old with history of C67.9 MALIGNANT NEOPLASM OF BLADDER, UNSPEC IFIED; HX of Bladder Ca removed 07/2023 EXAM MEASUREMENTS: Right Kidney: 8.2 x 3.6 x 3.0 Left Kidney: 8.6 x 4.9 x 4.0 Right Kidney: No hydronephrosis or masses seen Left Kidney: No hydronephrosis or masses seen Bladder: Not fully distended There is no evidence for hydronephrosis at this point in time. No nephrolithiasis is seen. No lenny s are identified. Cortical medullary differentiation is maintained. The urinary bladder is surgically absent. No definitive suspicious at about a within the urinary bladder bed. IMPRESSION: Postsurgical removal of the urinary bladder. No definitive suspicious at about a within the urinary b ladder bed.
== END | disposition home or self-care (01) ==
LOC: RADUSWWP 14:34
PROVIDERS: ATTEND Urology
DX: N26.1 Atrophy of kidney (terminal) (principal); C67.9 Malignant neoplasm of bladder, unspecified; Z90.6 Acquired absence of other parts of urinary tract
CPT/HCPCS: 76770

== ENCOUNTER 2024-06-10 10:35 | Emergency (ER) | payer MEDICARE, BC ==
[2024-06-10 10:43] VITALS: RESP 18; TEMP 97.7
[2024-06-10] MEDS: SODIUM CHLORIDE 0.9% 500 ML 500 ML IV STA (11:22)
[2024-06-10] MEDS: PANTOPRAZOLE 40 MG/10 ML VIAL IVP STA (11:23)
[2024-06-10 11:39] LABS: Basophils # (A) 0.1 k/uL (0-0.2); Basophils % (A) 1 %; Eosinophils # (A) 0.1 k/uL (0-0.7); Eosinophils % (A) 3 %; HCT 39.6 % (34.0-46.0); HGB 13.4 gm/dL (11.4-16.0); Lymphocytes # (A) 1.5 k/uL (1.0-4.8); Lymphocytes % (A) 32 %; MCH 31.3 pg (25.0-35.0); MCHC 33.9 g/dL (31.0-37.0); MCV 92.4 fL (80.0-100.0); Monocytes # (A) 0.3 k/uL (0-1.0); Monocytes % (A) 6 %; Neutrophils # (A) 2.6 k/uL (1.3-7.7); Neutrophils % (A) 56 %; Platelet Count 212 k/uL (150-450); RBC 4.29 m/uL (3.80-5.40); WBC 4.6 k/uL (3.8-10.6)
[2024-06-10 11:58] LABS: ALT 14 U/L (4-34); AST 26 U/L (14-36); African American GFR (CKD) 71 (>60 ml/min/1.73 sqM); Alkaline Phosphatase 97 U/L (38-126); Anion Gap 7 mmol/L; Blood Urea Nitrogen 24 mg/dL (7-17); Calcium 10.7 mg/dL (8.4-10.2); Carbon Dioxide 24 mmol/L (22-30); Chloride 107 mmol/L (98-107); Glucose 101 mg/dL (74-99); Non-African American GFR(CKD) 62 (>60 ml/min/1.73 sqM); Sodium 138 mmol/L (137-145); Total Bilirubin 0.8 mg/dL (0.2-1.3)
[2024-06-10 12:04] LABS: INR 1.1 (<1.2); Partial Thromboplastin Time 25.4 sec (22.0-30.0); Prothrombin Time 11.9 sec (10.0-12.5)
--- NOTE | 2024-06-10 13:33 | CT ---
EXAMINATION TYPE: CT angio abdomen pelvis DATE OF EXAM: 06/10/2024 COMPARISON: 07/27/2023 HISTORY: 84-year-old female rectal bleeding, hx of hemorrhoid's. GI Bleed protocol TECHNIQUE: Contiguous axial scanning of the abdomen and pelvis before and after administration of 80 ml Isovue-370 IV contrast. Delayed images per GI bleed protocol and coronal/sagittal reconstructions performed. CT DLP: 1449.7 mGycm Automated exposure control for dose reduction was used. FINDINGS: Heart normal size with trace pericardial effusion. Strandy atelectasis in the lower lungs w ithout pleural effusion. No focal liver lesion. Similar prominence to the bile duct up to 7 mm status post cholecystectomy. Po rtal venous system is patent. Adrenal glands and spleen within normal limits. Small bilateral renal cortical cysts measuring up to 5 mm. No nephrolithiasis or hydronephrosis. There appears to be a cyst partially exophytic from the anterior aspect of the pancreatic head measur ing 2.6 cm wide. This is in comparison to 2.2 cm back in 02/01/2023. 2.5 cm on 07/27/2023. No dilated small bowel, free fluid, or free air. No mesenteric or retroperitoneal lymphadenopathy. Mild circumferential wall thickening along the mid ascending colon, axial image 39 and overall mild s cattered stool. Mid and distal sigmoid colonic diverticulosis. No pericolonic inflammatory change. No extravasating contrast is identified. Mild to moderate circumferential bladder wall thickening. Uterus surgically absent. Neither ovary is identified. No abnormal fluid collection in the pelvis or pelvic lymphadenopathy. There is some disto rtion of the soft tissues along the perineum. Possibly posttraumatic given the healed fracture deform ities of the left superior and inferior pubic rami. 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 Degenerative grade 1 ante rolisthesis L3-L4 and L4-L5. Minimal inferior endplate deformity of T11 appears new from 07/27/2023. N o significant paravertebral soft tissue swelling. IMPRESSION: 1. MILD CIRCUMFERENTIAL WALL THICKENING ALONG THE MID ASCENDING COLON MAY BE DUE TO FOCAL PERISTALSIS OR A NONSPECIFIC MILD SEGMENTAL COLITIS. DIRECT VISUALIZATION TO EXCLUDE UNDERLYING NEOPLASM IF ROUT INE SCREENING COLONOSCOPY IS NOT BEING PERFORMED. 2. CYSTIC LESION OF THE PANCREATIC HEAD SHOWS SLIGHT GRADUAL ENLARGEMENT CURRENTLY 2.6 CM VERSUS 2.2 CM BACK ON 02/01/2023. RECOMMEND GI REFERRAL AND ANNUAL SURVEILLANCE MRI. A SEROUS CYSTADENOMA IS IN T HE DIFFERENTIAL. 3. Minimal inferior endplate deformity of T11 is new from 07/27/2023. This could be a subacute or capability lead riky endplate fracture given the lack of paravertebral soft tissue swelling. Correlate for any focal p ain. 4. Mid to distal sigmoid diverticulosis without acute diverticulitis. 5. Circumferential bladder wall thickening. Correlate to exclude cystitis.
--- NOTE | 2024-06-10 14:26 | ED ---
General Adult HPI - General Chief complaint: GI Bleed Stated complaint: Rectal bleeding Time Seen by Provider: 06/10/24 11:00 Source: patient, RN notes reviewed, old records reviewed Mode of arrival: ambulatory Limitations: no limitations - History of Present Illness Initial comments: Patient is a 84-year-old female presents emergency department complaining of blood per rectum. Has noticed blood per rectum each morning for the last 3 mornings. Resolves on further episodes of bowel movements. Has noticed some worsening constipation as well as harder bowel stools lately. Has been taking stool softeners. Patient is on blood thinners for atrial fibrillation. No significant intra-abdominal surgical history other than bladder surgery as well as gallbladder removal. No recent surgeries. No recent colonoscopies. States the blood is bright red and noticed that is it both in the toilet as well as on the toilet paper. No blood with the stool. Does have a history of hemorrhoids. Presents for further evaluation at this time. - Related Data Home Medications Medication Instructions Recorded Confirmed Benazepril HCl 20 mg PO HS 05/01/17 06/10/24 Pravastatin Sodium [Pravachol] 80 mg PO HS 02/01/23 06/10/24 amLODIPine [Norvasc] 5 mg PO DAILY 07/26/23 06/10/24 Apixaban [Eliquis] 2.5 mg PO BID 06/10/24 06/10/24 Clopidogrel [Plavix] 75 mg PO DAILY 06/10/24 06/10/24 Omeprazole [PriLOSEC] 20 mg PO DAILY 06/10/24 06/10/24 Allergies Allergy/AdvReac Type Severity Reaction Status Date / Time No Known Allergies Allergy Verified 06/10/24 11:38 Review of Systems ROS Statement: Those systems with pertinent positive or pertinent negative responses have been documented in the HPI. Review of Systems: CONST: Denies fever EYES: Denies blurry vision ENT: Denies nasal congestion C/V: Denies Chest pain RESP: Denies shortness of breath GI: Endorses rectal bleeding : Denies dysuria SKIN: Denies rash. MSK: Denies joint pain. NEURO: Denies headache ROS Other: All systems not noted in ROS Statement are negative. Past Medical History Past Medical History: Atrial Fibrillation, Cancer, Chest Pain / Angina, CVA/TIA, GERD/Reflux, Hyperlipidemia, Hypertension, Osteoarthritis (OA) Additional Past Medical History / Comment(s): past migraines, tia 2005-no residual effects, a-fib for last few years per pt, varicose veins, seasonal allergies/sinus problems, hiatal hernia, recent adm to [facility] w/hematuria, Bladder cancer discovered 03/16/2023 History of Any Multi-Drug Resistant Organisms: None Reported Past Surgical History: Bladder Surgery, Cholecystectomy, Heart Catheterization, Hysterectomy, Tonsillectomy Additional Past Surgical History / Comment(s): cataracts, egd/colonoscopy, bladder suspension 03/16/23 Past Anesthesia/Blood Transfusion Reactions: No Reported Reaction, Family History of Problems w/ Anesthesia Additional Past Anesthesia/Blood Transfusion Reaction / Comment(s): sister had knee surg., trouble waking up, ended up having stroke Past Psychological History: No Psychological Hx Reported Smoking Status: Never smoker Past Alcohol Use History: None Reported Past Drug Use History: None Reported - Past Family History Father Family Medical History: Coronary Artery Disease (CAD) Additional Family Medical History / Comment(s): heart problems Mother Additional Family Medical History / Comment(s): "blood disorder"too many wbc's, but not leukemia" General Exam - General Exam Comments Initial Comments: General: Appears in no acute distress. HEAD: Normal with no signs of head trauma. EYES: PERRLA, EOMI, conjunctiva normal, no discharge. ENT: Hearing grossly intact, normal oropharynx. RESPIRATORY: Clear breath sounds bilaterally. No wheezes, rales, or rhonchi. C/V: Regular rate and rhythm. S1 and S2 auscultated, no edema, peripheral pulses 2+ and intact throughout ABD: Abd is soft, nontender, nondistended. Rectal exam shows good rectal tone. Inflamed external hemorrhoids with no obvious bleeding. No gross blood per rectum. Light brown stool on rectal exam. Occult sent. EXT: Normal range of motion, no obvious deformity SKIN: No rashes or lesions observed on exposed skin. NEURO: Alert and oriented x 4. Limitations: no limitations Course Vital Signs 06/10/24 06/10/24 06/10/24 10:38 13:07 14:30 Temperature 97.7 F Pulse Rate 102 H 72 71 Respiratory 18 18 18 Rate Blood Pressure 143/80 144/57 162/65 O2 Sat by Pulse 98 98 97 Oximetry Medical Decision Making - Medical Decision Making Was pt. sent in by a medical professional or institution (NANDO Landis, UNDERGROUND REPAIRER, urgent care, hospital, or residential...) When possible be specific @ -No Did you speak to anyone other than the patient for history (EMS, parent, family, police, friend...)? What history was obtained from this source @ -No Did you review nursing and triage notes (agree or disagree)? Why? @ -I reviewed and agree with nursing and triage notes Were old charts reviewed (outside hosp., previous admission, EMS record, old EKG, old radiological studies, urgent care reports/EKG's, residential records)? Report findings @ -Old chart reviewed which shows patient is on blood thinning medication at home. Differential Diagnosis (chest pain, altered mental status, abdominal pain women, abdominal pain men, vaginal bleeding, weakness, fever, dyspnea, syncope, headache, dizziness, GI bleed, back pain, seizure, CVA, palpatations, mental health, musculoskeletal)? @ -Differential GI Bleed: Esophageal varices, aortoenteric fistula, Fara-Albert, gastritis, peptic ulcer disease, diverticulosis, inflammatory bowel disease, hemorrhoids, fissure, colitis, malignancy, Meckels diverticulum, this is not meant to be an all- inclusive list. EKG interpreted by me (3pts min.). @ -As above X-rays interpreted by me (1pt min.). @ -None done CT interpreted by me (1pt min.). @ -GI bleed CT revealed no evidence of acute GI bleed. Patient does have possible pancreatic head lesion as well as what appears to be a chronic T11 endplate fracture with no obvious clinical symptoms of it. Patient also may have some colitis. Recommend further evaluation for possible malignancy given findings in the intestines as well as pancreatic head. No obvious GI bleed. U/S interpreted by me (1pt. min.). @ -None done What testing was considered but not performed or refused? (CT, X-rays, U/S, labs)? Why? @ -None What meds were considered but not given or refused? Why? @ -None Did you discuss the management of the patient with other professionals (professionals i.e. NANDO Landis, UNDERGROUND REPAIRER, lab, RT, psych nurse, child protective services social worker, section hand, teacher, dental officer, rn case manager)? Give summary @ -No Was smoking cessation discussed for >3mins.? @ -No Was critical care preformed (if so, how long)? @ -No Were there social determinants of health that impacted care today? How? (Homelessness, low income, unemployed, alcoholism, drug addiction, transportation, low edu. Level, literacy, decrease access to med. care, care home, rehab)? @ -No Was there de-escalation of care discussed even if they declined (Discuss DNR or withdrawal of care, Hospice)? DNR status @ -No What co-morbidities impacted this encounter? (DM, HTN, Smoking, COPD, CAD, Cancer, CVA, ARF, Chemo, Hep., AIDS, mental health diagnosis, sleep apnea, morbid obesity)? @ -None Was patient admitted / discharged? Hospital course, mention meds given and route, prescriptions, significant lab abnormalities, going to OR and other pertinent info. @ -Based on the patient's presentation and physical exam, presents emergency department complaining of rectal bleeding. Exam does show inflamed external hemorrhoid with no evidence of thrombosis. We will obtain GI bleed workup. Patient in agreement this plan. Vital signs within acceptable limits. Patient will be given IV fluids as well as Protonix. Vital signs within acceptable limits. EKG shows no signs of acute ischemia. Patient's laboratory studies are remarkable for no anemia. Coags within normal limits. Positive occult blood. Once again, gross rectal exam shows no obvious gross blood but light brown stool. Possible occult blood from the inflamed hemorrhoid. CT angiogram reveals no acute evidence of bleeding but nonspecific findings of possible malignancy versus inflammation. I did discuss the results with the patient. She expressed understanding. I recommend follow-up with PCP as well as GI. Patient was in agreement this plan. Recommended holding her Eliquis at home for the next day and restarting it. Return if any worsening symptoms. We discussed using stool softeners at home as well. Patient was in agreement this plan. Answered all questions that she had. She will be discharged home at this time. I instructed the patient to follow up with their PCP in the next 1-3 days.I explained that the patient should return to the emergency department if they experience any worsening symptoms. Strict return precautions were discussed with the patient. The patient expressed understanding of these instructions. I answered all questions that the patient had. The patient was discharged home in good condition with their prescriptions and follow up information. Undiagnosed new problem with uncertain prognosis? @ -No Drug Therapy requiring intensive monitoring for toxicity (Heparin, Nitro, Insulin, Cardizem)? @ -No Were any procedures done? @ -No Diagnosis/symptom? @ -Rectal bleed, hemorrhoids Acute, or Chronic, or Acute on Chronic? @ -Acute Uncomplicated (without systemic symptoms) or Complicated (systemic symptoms)? @ -Uncomplicated Side effects of treatment? @ -No Exacerbation, Progression, or Severe Exacerbation? @ -No Poses a threat to life or bodily function? How? (Chest pain, USA, NH, pneumonia, PE, COPD, DKA, ARF, appy, cholecystitis, CVA, Diverticulitis, Homicidal, Suicidal, threat to staff... and all critical care pts) @ -Unlikely at this time. - Lab Data Result diagrams: 06/10/24 11:20 06/10/24 11:20 Lab Results 06/10/24 06/10/24 06/10/24 Range/Units 11:10 11:20 11:20 WBC 4.6 (3.8-10.6) k/uL RBC 4.29 (3.80-5.40) m/uL Hgb 13.4 (11.4-16.0) gm/dL Hct 39.6 (34.0-46.0) % MCV 92.4 (80.0-100.0) fL MCH 31.3 (25.0-35.0) pg MCHC 33.9 (31.0-37.0) g/dL RDW 14.0 (11.5-15.5) % Plt Count 212 (150-450) k/uL MPV 8.0 Neutrophils % 56 % Lymphocytes % 32 % Monocytes % 6 % Eosinophils % 3 % Basophils % 1 % Neutrophils # 2.6 (1.3-7.7) k/uL Lymphocytes # 1.5 (1.0-4.8) k/uL Monocytes # 0.3 (0-1.0) k/uL Eosinophils # 0.1 (0-0.7) k/uL Basophils # 0.1 (0-0.2) k/uL PT (10.0-12.5) sec INR (<1.2) APTT (22.0-30.0) sec Sodium (137-145) mmol/L Potassium (3.5-5.1) mmol/L Chloride (98-107) mmol/L Carbon Dioxide (22-30) mmol/L Anion Gap mmol/L BUN (7-17) mg/dL Creatinine (0.52-1.04) mg/dL Est GFR (CKD-EPI)AfAm (>60 ml/min/1.73 sqM) Est GFR (CKD-EPI)NonAf (>60 ml/min/1.73 sqM) Glucose (74-99) mg/dL Calcium (8.4-10.2) mg/dL Total Bilirubin (0.2-1.3) mg/dL AST (14-36) U/L ALT (4-34) U/L Alkaline Phosphatase (38-126) U/L Total Protein (6.3-8.2) g/dL Albumin (3.5-5.0) g/dL Stool Occult Blood Positive H (Negative) Blood Type A Positive Blood Type Recheck A Pos Bld Type Recheck Status No Antibody Screen NEGATIVE Spec Expiration Date 06/13/2024 - 230906/10/24 06/10/24 Range/Units 11:20 11:20 WBC (3.8-10.6) k/uL RBC (3.80-5.40) m/uL Hgb (11.4-16.0) gm/dL Hct (34.0-46.0) % MCV (80.0-100.0) fL MCH (25.0-35.0) pg MCHC (31.0-37.0) g/dL RDW (11.5-15.5) % Plt Count (150-450) k/uL MPV Neutrophils % % Lymphocytes % % Monocytes % % Eosinophils % % Basophils % % Neutrophils # (1.3-7.7) k/uL Lymphocytes # (1.0-4.8) k/uL Monocytes # (0-1.0) k/uL Eosinophils # (0-0.7) k/uL Basophils # (0-0.2) k/uL PT 11.9 (10.0-12.5) sec INR 1.1 (<1.2) APTT 25.4 (22.0-30.0) sec Sodium 138 (137-145) mmol/L Potassium 4.0 (3.5-5.1) mmol/L Chloride 107 (98-107) mmol/L Carbon Dioxide 24 (22-30) mmol/L Anion Gap 7 mmol/L BUN 24 H (7-17) mg/dL Creatinine 0.87 (0.52-1.04) mg/dL Est GFR (CKD-EPI)AfAm 71 (>60 ml/min/1.73 sqM) Est GFR (CKD-EPI)NonAf 62 (>60 ml/min/1.73 sqM) Glucose 101 H (74-99) mg/dL Calcium 10.7 H (8.4-10.2) mg/dL Total Bilirubin 0.8 (0.2-1.3) mg/dL AST 26 (14-36) U/L ALT 14 (4-34) U/L Alkaline Phosphatase 97 (38-126) U/L Total Protein 7.0 (6.3-8.2) g/dL Albumin 4.0 (3.5-5.0) g/dL Stool Occult Blood (Negative) Blood Type Blood Type Recheck Bld Type Recheck Status Antibody Screen Spec Expiration Date - EKG Data -: EKG Interpreted by Me EKG Comments: 12-lead Electrocardiogram Interpretation Note EKG was reviewed and interpreted by myself. 12-lead ECG performed at 1127 is interpreted by me as revealing atrial fibrillation at a rate of 70 beats per minute. [place] normal. QRS duration is 97 ms, QTc is 414 ms. There were no ST or T wave abnormalities to suggest myocardial ischemia or injury. R wave progression across the precordium was satisfactory. By my interpretation this EKG is non-diagnostic for acute ischemia. Disposition Clinical Impression: Rectal bleed, Hemorrhoids Disposition: HOME SELF-CARE Condition: Good Instructions (If sedation given, give patient instructions): Rectal Bleeding (ED) Additional Instructions: hold eliquis for today and possible tomorrow morning as well. return if worsening bleeding. follow up with PCP and GI for eval of the CT findings of your pancreas and bowels. Is patient prescribed a controlled substance at d/c from ED?: No Referrals: Demetrius Bales MD [Primary Care Provider] - 1-2 days Gayla Stark MD [STAFF PHYSICIAN] - 1-2 days Time of Disposition: 14:25
[2024-06-10 14:42] VITALS: BP 162/65; PULSE 71
== END 2024-06-10 14:30 | disposition home or self-care (01) ==
LOC: EC 10:35
DX: K62.5 Hemorrhage of anus and rectum (principal); K64.9 Unspecified hemorrhoids
CPT/HCPCS: 36415; 93005; 86900; 86901; 80053; 85025; 85610; 85730; 86850; 82272; 74174; 99284; 96374; 96361 ×2; Q9967; J2470

== ENCOUNTER → 2024-08-21 | Day surgery (SDC) | payer MEDICARE, BC ==
[2024-08-19 14:12] VITALS: BMI 25.0
[~2024-08-21] MED LIST changes: +LIDOCAINE 1% (10MG/ML) FOR IV START INTRADERMA PRN; -LIDOCAINE 1% INJ 10MG/ML (20 ML MDV) SQ ONE; -MIDAZOLAM 2 MG/2 ML VIAL IV ONE; +PROPOFOL 10 MG/ML 20 ML VIAL IV ONE; -SODIUM CHLORIDE 0.9% 1,000 ML IV SCH
[2024-08-21] MEDS: LACTATED RINGERS 1,000 ML IV SCH (10:07)
[2024-08-21] MEDS: IV FLUID CONTINUATION 1,000 ML IV ONE (10:08)
[2024-08-21 10:21] VITALS: TEMP 98
--- NOTE | 2024-08-21 11:17 | P.PCN ---
Date of Procedure: 08/21/24 Procedure(s) Performed: BRIEF HISTORY: Patient is a 84-year-old pleasant white female scheduled for an elective colonoscopy as a part of evaluation of intermittent rectal bleeding for the last 6 months duration. PROCEDURE PERFORMED: Colonoscopy. PREOPERATIVE DIAGNOSIS: Intermittent rectal bleeding. IV sedation per Anesthesia. PROCEDURE: After informed consent was obtained, the patient, was brought into the endoscopy unit. IV sedation was administered by Anesthesia under continuous monitoring. Digital rectal examination was normal. Initially the Olympus CF-160 flexible video colonoscope was then inserted in the rectum, gradually advanced into the cecum without any difficulty. Careful examination was performed as the scope was gradually being withdrawn. Ileocecal valve and the appendiceal orifice were visualized and appeared normal. Prep was excellent. Mucosa of the cecum, ascending colon, transverse colon, descending colon, sigmoid colon, and rectum appeared normal. Scattered sigmoid diverticulosis. Retroflexion was performed in the rectum and grade 2 internal hemorrhoids were seen. The patient tolerated the procedure well. IMPRESSION: Scattered sigmoid diverticulosis Grade 2 internal hemorrhoids RECOMMENDATIONS: Findings of this examination were discussed with the patient as well as her family. She was advised to be in high-fiber diet and take fiber supplements on a regular basis. Continue with MiraLAX 1 scoop daily.
[2024-08-21 11:37] VITALS: BP 105/52; PULSE 61; RESP 16
== END ==
LOC: ORWHC2ENDO 09:05
PROVIDERS: ATTEND Internal Medicine Gastroenterology
DX: K62.5 Hemorrhage of anus and rectum
CPT/HCPCS: 45378

== ENCOUNTER → 2024-12-02 | Outpatient (CLI) | payer MEDICARE, BC ==
--- NOTE | 2024-12-02 13:38 | XR ---
EXAMINATION TYPE: XR abdomen complete w decub DATE OF EXAM: 12/02/2024 CLINICAL HISTORY: Change in bowel habit TECHNIQUE: Supine and left side down lateral decubitus views of the abdomen are obtained. COMPARISON: CTA June 10, 2024 FINDINGS: Scattered gas is seen in non-distended small and large bowel loops. There is no viscerome ama, pneumoperitoneum, or abnormal calcification appreciated. Healed fracture of the left superior pubic symphysis is redemonstrated. Visualized lung bases are clear. IMPRESSION: Overall nonobstructive bowel gas pattern. [facility], , 12/02/2024 1:36 PM
== END | disposition home or self-care (01) ==
LOC: RADXRMAIN 12:35
PROVIDERS: ATTEND Internal Medicine Gastroenterology
DX: R19.4 Change in bowel habit (principal)
CPT/HCPCS: 74021

== ENCOUNTER → 2025-03-28 | Outpatient (CLI) | payer MEDICARE, BC ==
--- NOTE | 2025-03-31 16:53 | MR ---
EXAMINATION TYPE: MR pancreas wo/w con DATE OF EXAM: 03/28/2025 5:50 PM INDICATION: Patient age:Female; 84 years old; Reason for study: K86.2 CYST OF PANCREAS; [facility]. COMPARISON: CTA abdomen and pelvis 06/10/2024, CT abdomen and pelvis 07/28/2023, CT urogram 02/01/2023 TECHNIQUE: Multiplanar multi-sequence imaging was performed without and with IV contrast. The patie nt was given 6 ccs of Gadobutrol intravenously and dynamic imaging was performed. Post IV contrast heredia btraction images were also submitted for review. FINDINGS: LOWER CHEST: Mild cardiomegaly. Mild elevation of the right hemidiaphragm. ABDOMEN Liver: Noncirrhotic morphology. No fatty infiltration. Left hepatic lobe subcentimeter T2 hyperintens e nonenhancing simple cyst. Gallbladder and Bile ducts: Gallbladder is surgically absent. Expected extrahepatic biliary duct dila tation with the common bile duct measuring up to 9 mm at the pancreatic head. Likely due to postchole cystectomy physiology. No stricture or filling defect is identified. No significant intrahepatic bili samuel ductal dilatation. Pancreas: No pancreatic duct dilatation. No inflammatory changes surrounding fluid collections. Pancr eatic head and wall T2 hyperintense cystic lesion measuring up to 2.1 cm (series 601, image 42). No m ural nodularity or suspicious enhancement. Pancreatic neck 1.6 cm cystic lesion with some thin septat ions (series 601, image 45). No mural nodularity or suspicious enhancement. Additional few pancreatic body and tail subcentimeter T2 hyperintense nonenhancing cystic lesions. Spleen: Unremarkable. Adrenal glands: Unremarkable. Kidneys: No hydronephrosis. Few nonenhancing T2 hyperintense thin wall left renal cysts. No follow-up recommended. Stomach and Bowel: No evidence for bowel obstruction. Sigmoid diverticulosis. Peritoneum: No evidence of pneumoperitoneum, free fluid, or adenopathy. Vasculature: Unremarkable. No aortic aneurysm. Abdominal wall: Unremarkable. Musculoskeletal: The osseous structures appear intact. IMPRESSION: Few pancreatic cystic lesions with largest in the head measuring up to 2.1 cm. None demonstrate suspi cious enhancement or mural nodularity. 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 Follow-up MRI abdomen with IV contrast in 6 months is recommended to assess for stability. [facility], , 03/31/2025 4:51 PM
== END | disposition home or self-care (01) ==
LOC: RADMRIMAIN 16:53
PROVIDERS: ATTEND Internal Medicine Gastroenterology
DX: K86.2 Cyst of pancreas (principal)
CPT/HCPCS: 74183; A9585